=== PATIENT | male | born 1945 | race Caucasian/White ===

== ENCOUNTER 2017-10-06 09:57 | Inpatient (IN) | payer OTHER, BC ==
[~2017-10-06] VITALS: Ht 185.4 cm; Wt 91.6 kg
--- NOTE | ~2017-10-06 | 2DMMODE ---
[facility] [place] [address] 2 D/M-MODE ECHOCARDIOGRAM Name: ZBIGNIEW COREA Room #: 462-P ADM IN .R.#: [id number] Admission: 10/06/17 Attend Phys: Lizbeth Burrell Discharge: Date of : 41 Date of Service: 10/06/17 1611 Report #: [id number] THIS REPORT FOR: //name// APPROVED REPORT Study performed: 10/06/2017 12:57:03 EXAM: Comprehensive 2D, Doppler, and color-flow Echocardiogram Patient Location: ER Room #: 2 Status: routine BSA: 2.15 HR: 77 bpm BP: 135/81 mmHg Other Information Study Quality: Adequate Indications CVA/TIA Echo Enhancing Agent Indication: Rule out Shunt Agent(s) / Amount(s) Used: Agitated Saline 7 cc 2D Dimensions IVC: 22.00 mm Volumes Left Atrial Volume (Systole) Single Plane 4CH: 36.94 mL Single Plane 2CH: 43.96 mL LA ESV Index: 21.00 mL/m2 Aortic Valve AoV Peak Drew.: 1.45 m/s AO Peak Gr.: 8.37 mmHg LVOT Max P.37 mmHg LVOT Max V: 0.92 m/s AI Vmax: 3.72 m/s AI [place]: 2.33 m/s2 AI PHT: 461.78 ms Mitral Valve E/A Ratio: 0.7 MV Decel. Time: 317.63 ms MV E Max Drew.: 0.85 m/s [facility] [address] [place] [address] 2 D/M-MODE ECHOCARDIOGRAM Name: ZBIGNIEW COREA JR Room #: 462-P [facility]#: [id number] Admission: 10/06/17 Attend Phys: Lizbeth Burrell Discharge: Date of : 41 Date of Service: 10/06/17 1611 Report #: [id number] A Drew.: 1.27 m/s MV PHT: 92.11 ms IVRT: 119.95 ms Pulmonary Valve PV Peak Drew.: 0.84 m/s PV Peak Gr.: 2.83 mmHg Pulmonary Vein P Vein S: 0.47 m/s P Vein A: 0.30 m/s P Vein D: 0.36 m/s P Vein A Dur.: 92.3 msec P Vein S/D Ratio: 1.31 Left Ventricle The left ventricle is normal size. There is normal left ventricular wall thickness. The left ventricular systolic function is normal. The left ventricular ejection fraction is within the normal range. LVEF is 60-65%. Grade I - abnormal relaxation pattern. Right Ventricle The right ventricle is normal size. The right ventricular systolic function is normal. Atria The left atrium size is normal. Interatrial septum is intact without evidence of ASD or PFO. The right atrium size is normal. Aortic Valve The aortic valve is normal in structure. Aortic valve is calcified. Trace to mild aortic regurgitation. There is no aortic valvular stenosis. Mitral Valve The mitral valve is normal in structure. There is no mitral valve regurgitation noted. No evidence of mitral valve stenosis. Tricuspid Valve The tricuspid valve is normal in structure. There is no tricuspid valve regurgitation noted. Pulmonic Valve The pulmonary valve is normal in structure. There is no pulmonic valvular regurgitation. Great Vessels The aortic root is normal in size. IVC is dilated and collapses <50% with inspiration. [facility] [address] [place] [address] 2 D/M-MODE ECHOCARDIOGRAM Name: ZBIGNIEW COREA Room #: 462-P [facility] IN M.R.#: [id number] Admission: 10/06/17 Attend Phys: Lizbeth Burrell Discharge: Date of : 41 Date of Service: 10/06/17 1611 Report #: [id number] Pericardium There is no pericardial effusion. <Conclusion> The left ventricle is normal size. LVEF is 60-65%. The left atrium size is normal. The right atrium size is normal. The aortic valve is normal in structure. Aortic valve is calcified. Trace to mild aortic regurgitation. The mitral valve is normal in structure. The tricuspid valve is normal in structure. The pulmonary valve is normal in structure. There is no pericardial effusion. <ELECTRONICALLY SIGNED> By: Bronson Sanchez MD 10/06/17 161 10 10 Bronson Sanchez MD /INF
--- NOTE | ~2017-10-06 | EKG ---
[place] [address] [facility] [place] [address] ELECTROCARDIOGRAM REPORT Name: ZBIGNIEW COREA JR Room #: 462-P ADM IN M.R.#: [id number] Admission: 10/06/17 Attend Phys: Lizbeth Lopez Discharge: Date of : 41 Report #: [id number] THIS REPORT FOR: //name// [facility] ED Test Date: 2017-10-06 Test Time: 10:27:49 Pat Name: ZBIGNIEW COREA Department: Room: [facility] Gender: M Process Manager: jeremy : 1945 Requested By: Vanita Puga Order Number: [id number] MD: Les Boss Measurements Intervals [place] Rate: 89 P: 10 WI: 171 QRS: -52 QRSD: 89 T: 88 QT: 401 QTc: 488 Interpretive Statements Sinus rhythm Frequent premature ventricular and occasional supraventricular complexes Inferior infarct, old Anterior infarct, old Nonspecific T wave abnormality No previous ECG available for comparison Electronically Signed On 10-07-2017 8:43:10 CDT by Les Boss [email or web address] <ELECTRONICALLY SIGNED> By: Les Boss MD, [facility] 10/07/17 0843 1027 [facility]7 Les Boss MD, [facility] /EPI
[2017-10-06 10:36] LABS: ABSOLUTE NEUTROPHILS 3.9 thou/uL (1.4-8.2); EOSINOPHILS 0.3 % (0.0-3.0); HEMATOCRIT 41.3 % (42.0-52.0); HEMOGLOBIN 14.1 gm/dL (14.0-18.0); LYMPHOCYTES 19.7 % (24.0-44.0); MCHC 34.2 g/dL (28.0-37.0); MCV 84.9 fL (80.0-100.0); PLATELET COUNT 150 thou/uL (150-400); RBC 4.86 mil/uL (4.50-6.00); RDW 15.1 % (10.5-14.5); WBC 5.4 thou/uL (4.0-11.0)
[2017-10-06] MEDS ORDERED: CYMBALTA20 MG PO (10:37)
[2017-10-06] MEDS ORDERED: LISINOPRIL20 MG PO (10:37)
[2017-10-06] MEDS ORDERED: PROSCAR 5MG TABL5 MG PO (10:37)
[2017-10-06] MEDS ORDERED: FLOMAX0.4 MG PO (10:38)
[2017-10-06] MEDS ORDERED: PROTONIX40 M1 PO (10:39)
[2017-10-06] MEDS ORDERED: ZINC-220220 MG PO (10:39)
[2017-10-06] MEDS ORDERED: NEURONTIN100 MG PO (10:40)
[2017-10-06] MEDS ORDERED: TYLENOL325 MG PO (10:41)
[2017-10-06] MEDS ORDERED: FLEXERIL PO (10:41)
[2017-10-06] MEDS ORDERED: VITAMINC500 PO (10:41)
[2017-10-06] MEDS ORDERED: VITAMIN D1000 UNI1 PO (10:42)
[2017-10-06] MEDS ORDERED: DOXYCYCLINE 10100 MG PO (10:43)
[2017-10-06 10:44] LABS: ANION GAP 10 mmol/L (7-16); BUN 20 mg/dL (7-18); CALCIUM 8.9 mg/dL (8.5-10.1); CHLORIDE 107 mmol/L (98-107); CO2 25 mmol/L (21-32); CREATININE 1.5 mg/dL (0.7-1.3); GLUCOSE 128 mg/dL (74-106); SODIUM 142 mmol/L (136-145)
[2017-10-06 10:47] LABS: APTT 23.9 Seconds (24.5-32.8); INR 1.1; PROTIME 10.9 Seconds (9.3-11.4)
[2017-10-06] MEDS ORDERED: [UNRECOGNIZED DRUG - OTHER] PO (10:47)
[2017-10-06 10:54] LABS: TROPONIN-I < 0.04 ng/mL (<0.06)
[2017-10-06 11:00] LABS: URINE BILIRUBIN NEGATIVE (Negative); URINE BLOOD TRACE (Negative); URINE CLARITY CLEAR; URINE COLOR YELLOW; URINE GLUCOSE-RANDOM* NEGATIVE (Negative); URINE KETONES NEGATIVE (Negative); URINE LEUKOCYTES-REFLEX NEGATIVE (Negative); URINE NITRITE-REFLEX NEGATIVE (Negative); URINE PROTEIN (DIPSTICK) 1+ (Negative); URINE SPECIFIC GRAVITY >= 1.030 (1.005-1.035); URINE UROBILINOGEN 0.2 E.U./dl (0.2-1.0)
[2017-10-06 11:08] LABS: BACTERIA-REFLEX 1-9 Few /HPF (None Seen); CASTS None Seen /LPF (None Seen); CRYSTALS None Seen /LPF (None Seen); SQUAMOUS None Seen /LPF (0-3); URINE RBC None Seen /HPF (0-2); URINE WBC-REFLEX 0-5 Rare /HPF (0-5)
[2017-10-06 12:07] LABS: CHOLESTEROL 154 mg/dL (<200); HDL CHOLESTEROL 28 mg/dL (>40); LDL CHOLESTEROL 99 mg/dL (<100); TC:HDL 5.5 Ratio (Not establshd); TRIGLYCERIDE 138 mg/dL (<150); VLDL 28 mg/dL (<40)
[2017-10-06 12:33] LABS: TSH 1.655 uIU/mL (0.358-3.740)
[2017-10-06 13:09] VITALS: BP 135/81
[2017-10-06 14:18] VITALS: BP 127/72
[2017-10-06 14:37] VITALS: BP 136/76
[2017-10-06 20:00] VITALS: BP 148/71
[2017-10-06] MEDS ORDERED: [UNRECOGNIZED DRUG - OTHER] PO (22:05)
[2017-10-07 04:00] VITALS: BP 136/83
[2017-10-07 08:46] VITALS: BP 149/62
[2017-10-07 09:59] LABS: BE(vivo) -0.5 mmol/L (-2 to +3); PCO2 34.3 mmHg (35.0-45.0); PO2 72.3 mmHg (80.0-100.0); pH 7.444 (7.360-7.450); sO2 95.2 % (92.0-98.0)
[2017-10-07 16:42] VITALS: BP 138/64
[2017-10-07 19:11] VITALS: BP 136/53
[2017-10-08 08:20] VITALS: BP 143/64
[2017-10-08 14:29] VITALS: BP 143/64
[2017-10-08] MEDS ORDERED: ASPIRIN325 PO (15:58)
[2017-10-08 17:31] VITALS: BP 143/64
== END 2017-10-08 18:15 | DRG 70 ==
LOC: ER 09:57 → EROBS 11:35 → 4W 11:35 → SICU 10-07 21:02
PROVIDERS: Emergency Medicine; Hospitalist; Nurse Practitioner
DX: G93.40 Encephalopathy, unspecified (principal); E43 Unspecified severe protein-calorie malnutrition; G35 Multiple sclerosis; I10 Essential (primary) hypertension; F32.9 Major depressive disorder, single episode, unspecified; K21.9 Gastro-esophageal reflux disease without esophagitis; G47.9 Sleep disorder, unspecified; N40.0 Benign prostatic hyperplasia without lower urinary tract symptoms; Z88.8 Allergy status to other drugs, medicaments and biological substances; Z90.49 Acquired absence of other specified parts of digestive tract; Z82.49 Family history of ischemic heart disease and other diseases of the circulatory system; Z79.899 Other long term (current) drug therapy; Z79.82 Long term (current) use of aspirin; Z86.73 Personal history of transient ischemic attack (TIA), and cerebral infarction without residual deficits
CPT/HCPCS: 10045; 15002

== ENCOUNTER 2017-10-08 14:58 | Inpatient (IN) | payer OTHER, BC ==
[~2017-10-08] VITALS: Ht 185.4 cm; Wt 100.7 kg
--- NOTE | ~2017-10-08 | PLAN ---
[facility] [place] [address] REHAB UNIT PLAN OF CARE Name: ZBIGNIEW COREA Room #: 503-P ADM IN M.R.#: [id number] Admission: 10/08/17 Attend Phys: Lalo Reed MD Discharge: Date of : 41 Report #: [id number] THIS REPORT FOR: //name// CC: Lalo Shanks DATE OF SERVICE: 10/09/2017 PROGRESS NOTE/OVERALL PLAN OF CARE The overall plan of care is based on the preadmission screen, post-admission physician evaluation, and information garnered from therapy assessments. 1. Estimated length of stay is probably fairly long, likely at least 2-3 weeks. 2. Medical prognosis is reasonably good. 3. Anticipated interventions includes the interdisciplinary acute inpatient rehabilitation program. PT/OT and Speech will be involved as well as rehabilitation nursing assisting regarding medication management, skin care prophylaxis, bowel and bladder issues and nursing education. We will have the multidisciplinary rehabilitation team involved as well as consulting physicians. 4. Anticipated functional outcomes would be for the patient to hopefully improve with basic mobility and ADLs and cognition. The focus will be to try to work on sliding board transfers to try to achieve the prior functional level. He was at premorbidly, so he can return back home with his . He was at a wheelchair level premorbidly with his multiple sclerosis. 5. Discharge destination is back home with his . 6. Expected therapy by discipline includes PT/OT and speech 1 hour per day each 5 days a week throughout the duration of the acute inpatient rehabilitation stay. <ELECTRONICALLY SIGNED> By: Lalo Reed MD 10/18/17 1221 0739 0753 Lalo Reed MD /nt
--- NOTE | ~2017-10-08 | H ---
[facility] [place] [address] HISTORY AND PHYSICAL Name: ZBIGNIEW COREA JR Room #: 503-P ADM IN M.R.#: [id number] Admission: 10/08/17 Attend Phys: Lalo Reed MD Discharge: Date of : 41 Report #: [id number] THIS REPORT FOR: //name// CC: Lalo Shanks DATE OF SERVICE: 10/08/2017 HISTORY OF PRESENT ILLNESS: This is a 72-year-old gentleman brought in to [facility] by his after she checked on him at morning and found him unable to be aroused. He was diaphoretic and extremely weak. She brought him into the hospital for further evaluation. He has past pertinent medical history of MS with premorbid wheelchair bound status, subdural hematoma, status post patricia hole in 2016 with residual left-sided weakness, hypertension and chronic suprapubic catheter with a recent UTI, treated with doxycycline. She was concerned about a new stroke. He was seen in consultation by Neurology. His stroke workup was negative. CT of the head showed no acute process. MRI of the head shows chronic changes, particularly in the right frontal lobe, but no acute abnormality. He also underwent carotid ultrasound, echocardiogram and lab work, which was essentially all within normal limits. His O2 sat had been low 90% on room air. He did have a nocturnal desaturation study and is felt to have an underlying sleep disorder. Neurology has recommended outpatient sleep study for further evaluation. He medically stabilized, but continued to remain weak and has been transferred to inpatient rehab today. PAST MEDICAL HISTORY: MS, BPH, GERD, chronic suprapubic catheter, history of UTIs, hypertension, subdural hematoma, status post patricia hole. PAST SURGICAL HISTORY: Appendectomy, tonsillectomy, patricia hole, back surgery x 2, suprapubic catheterization. HABITS: He is a nonsmoker, nondrinker. CODE STATUS: Full code. SOCIAL HISTORY: He lives in a house with his . It is 1-06/15 stories. He has a ramp entrance from the garage with zero steps inside, he was wheelchair bound and nonambulatory premorbidly. He used a slide board for transfers and has a rolling shower chair with seatbelt for which he uses once a week for bathing. REVIEW OF SYSTEMS: He reports chronic suprapubic catheter with no current issues. He reports generalized muscle weakness greater in his lower extremities. He denies numbness, tingling, dizziness, headache, cough, chest pain, shortness of breath or edema. [address] [address] HISTORY AND PHYSICAL Name: KHOIMAGDALENOZBIGNIEW MARCIAL Room #: 503-P [facility] IN ..#: [id number] Admission: 10/08/17 Attend Phys: Lalo Reed MD Discharge: Date of : 41 Report #: [id number] PHYSICAL EXAMINATION: VITAL SIGNS: Blood pressure 143/64, respirations 21, pulse 78, temperature 98.2. GENERAL: He is awake, alert and oriented x 3. He has slow verbal responses. HEART: Regular rate and rhythm, S1, S2. CHEST: Lungs clear to auscultation bilateral. No crackle, no wheeze. ABDOMEN: Soft, bowel sounds positive. He has suprapubic drain. GENITOURINARY: Jordan catheter plaque with clear yellow urine output. EXTREMITIES: Bilateral lower extremities, limited range of motion, unable to lift legs antigravity. Left leg weaker greater than right. Bilateral upper extremity functional range of motion intact. Bilateral upper extremity strength 3+/5. He is max assist to slide legs over edge of bed, unable to perform sit to stand. No calf swelling or tenderness. NEUROLOGIC: Sensation intact to light touch bilateral, slow motor movements. He has moderate to severe memory impairment. ASSESSMENT AND PLAN: 1. Encephalopathy. 2. Probable sleep disorder. We will need outpatient sleep study. 3. Multiple sclerosis and premorbid wheelchair bound. 4. History of subdural hematoma, status post patricia hole 2016 with residual left-sided weakness. 5. Chronic suprapubic catheter. 6. Hypertension. PLAN: The patient has been admitted to inpatient rehabilitation unit. He will have physical, occupational and speech therapies with his goal to return back to home with his . We will continue to make rehab recommendations as needed. <ELECTRONICALLY SIGNED> By: ISREAL Sharp 10/22/17 1012 1628 172 ISREAL Sharp /nt
--- NOTE | ~2017-10-08 | HC ---
[facility] [place] [address] CONSULTATION Name: ZBIGNIEW COREA JR Room #: 503-P ADM IN M.R.#: [id number] Admission: 10/08/17 Attend Phys: Lalo Reed MD Discharge: Date of : 41 Report #: [id number] THIS REPORT FOR: //name// CC: Lalo Shanks DATE OF SERVICE: 10/09/2017 NEUROBEHAVIORAL STATUS EXAM: ATTENDING PHYSICIAN: Lalo Reed MD. FIBERGLASS BONDING MACHINE TENDER: Jimi Joyner, PhD. CLINICAL PRESENTATION: The patient is a 72-year-old male admitted to [facility] rehabilitation unit for a comprehensive inpatient rehabilitation program to improve functional mobility, activities of daily living and self-care and mental status secondary to deficits from an encephalopathy. The patient was admitted to the hospital with confusion and disorientation. He was difficult to awaken and his brought him in through the Emergency Room. He has a history of multiple sclerosis and is wheelchair bound. His reported that he had an intracerebral bleed in 2017. 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 Additionally, he has chronic suprapubic catheter and hypertension. A complete description of his medical condition and history can be found in his medical record. Neuropsychological consultation was requested to provide assistance in the assessment of cognitive and emotional status and to provide recommendations and services. Prior to this most recent admission, he was living with his in their home. The patient has been in a previous usp units including [facility]. His has attempted to take care of him at home. 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 The patient is a college graduate. He is reported to have been driving independently up until his cerebral hemorrhage in 2017. For the last year, she has been assisting in the management of his care. He has 2 children. There is no history of treatment for depression/anxiety or concern regarding substance use. TECHNIQUES UTILIZED: Clinical interview, review of medical records, staff consultation and behavioral observation, mini mental status exam 2 standard version, verbal fluency assessment, letter and category and clock drawing. EXAMINATION FINDINGS: The patient was alert and cooperative with the assessment. He had difficulty in describing the reason for his hospitalization. The patient was disoriented as he described recent historical events. He is unable to accurately describe his current medical condition and the reason for [facility] [address] [place] [address] CONSULTATION Name: NAHOMYZBIGNIEW Hemant Room #: 503-P [facility] IN ..#: [id number] Admission: 10/08/17 Attend Phys: Lalo Reed MD Discharge: Date of : 41 Report #: [id number] hospitalization. There is no evidence of aphasia. He does not report auditory or visual hallucinations. His performance on the MMSE 2 brief version is extremely low with a raw score of 8 of 16. He was 3/3 for initial registration, 3/5 for orientation to time, 2 of [address] and 0/3 for immediate recall of 3 items after a brief time delay and distraction. Performance on the MMSE 2 standard version was extremely low with a raw score 16 of 30. He was 1 of 5 for serial sevens, 2 of 2 for naming, 1 of 1 for repetition. Auditory comprehension was 3 of 3. He could read and follow a single command. The patient was unable to write a sentence or copy a simple geometric design. The patient was unable to accurately draw a clock, place the numbers in the clock or set the hands at a designated time. Clock drawing also revealed perseveration in copying. Perseveration is often seen in executive dysfunction that is associated with neurodegenerative disorder. Letter fluency was extremely low with a raw score of 7 Category fluency was extremely low with raw score of 4. The patient is presenting with severe deficits in cognition. While he is alert, severe deficits are suggested in immediate recall, sustained concentration, visual spatial organization and executive functioning. As indicated evidence of perseveration and poor insight are noted. DIAGNOSTIC IMPRESSION: Major neurocognitive disorder (dementia), possibly due to multiple sclerosis and cerebrovascular accident, without behavior disorder -- severe at this time. RECOMMENDATIONS: The patient will require continued 24-hour care that includes assistance in the management of medication, nutrition and finances. Specific directions and instructions in regard to daily activity will be necessary to maintain safety. He may benefit from a followup assessment to clarify cognitive status upon resolution of his acute medical condition. The patient is lacking insight into his deficits which places him at an increased safety risk. Continued orientation to time and place along with identifying specific objectives during therapy will assist his overall achievement of goals. [address] [address] CONSULTATION Name: ZBIGNIEW COREA JR Room #: 503-P [facility] IN ..#: [id number] Admission: 10/08/17 Attend Phys: Lalo Reed MD Discharge: Date of : 41 Report #: [id number] Thank you very much for allowing me to provide the consultation on this patient. <ELECTRONICALLY SIGNED> By: Jimi Joyner, PhD 10/10/17 1408 1358 0136 Jimi Joyner, PhD /nt
--- NOTE | ~2017-10-08 | H ---
[facility] [place] [address] HISTORY AND PHYSICAL Name: ZBIGNIEW COREA Room #: 503-P ADM IN M.R.#: [id number] Admission: 10/08/17 Attend Phys: Lalo Reed MD Discharge: Date of : 41 Report #: [id number] THIS REPORT FOR: //name// CC: Lalo Shanks DATE OF SERVICE: 10/08/2017 HISTORY AND PHYSICAL ADDENDUM AND POST-ADMISSION PHYSICIAN EVALUATION HISTORY OF PRESENT ILLNESS: The patient is a 72-year-old white male originally admitted to [facility], 10/06/2017 with history of multiple sclerosis, wheelchair bound, prior subdural hematoma status post patricia hole 1 year ago at [facility] with left-sided weakness, hypertension and chronic suprapubic catheter, recent urinary tract infection, was admitted with mental status change, concern of possible stroke. He was seen by Neurology. MRI showed chronic changes particularly right frontal lobe. CT of the head showed no acute process. He was noted to have an encephalopathy along with his multiple sclerosis and prior history of a subdural hematoma. He had a significant functional decline from his premorbid status and has now been admitted for acute in-hospital inpatient rehabilitation. PHYSICAL EXAMINATION: GENERAL: The patient was seen earlier. He does have a suprapubic catheter. He will arouse, follow basic commands. He has somewhat slow verbal responses. EXTREMITIES: Bilateral upper extremity strength is grade 3+/5. Lower extremity strength appears weaker on the left. He is needing assistance with basic transfers currently at a max assist with sliding board. ASSESSMENT AND PLAN: See the consult dictation as per nurse practitioner, Sarah Beth George. I agree with her assessment and physical examination as noted. From a postadmission physician evaluation perspective, there are no relevant changes since the preadmission screening. Please see the review of prior and current medical and functional condition and comorbidity. Please see the patient's previous and current functional status. As far as risk of complications, the patient has the above noted multiple medical comorbidities. Initial plan of care involves the interdisciplinary acute inpatient rehabilitation program with the goal of maximizing the patient's functional independence, so that he can hopefully return back to his prior living situation. Measurable functional goals would be to focus primarily on transfers including use of the sliding board to try to enable independence with sliding board transfers and functional independence to try to return back to his premorbid level. Prognosis is reasonably good with estimated length of stay [facility] [address] [place] [address] HISTORY AND PHYSICAL Name: ZBIGNIEW COREA Room #: 503-P ADM IN [facility]#: [id number] Admission: 10/08/17 Attend Phys: Lalo Reed MD Discharge: Date of : 41 Report #: [id number] probably at least 2-3 weeks pending progress. Potential barriers would include his multiple medical comorbidities and decreased functional status. <ELECTRONICALLY SIGNED> By: Lalo Reed MD 10/18/17 1221 0734 0813 Lalo Reed MD /FRANK
[~2017-10-08 14:58] MED LIST: CYMBALTA20 MG PO; DOXYCYCLINE 10100 MG PO; FLEXERIL PO; FLOMAX0.4 MG PO; LISINOPRIL20 MG PO; NEURONTIN100 MG PO; PROSCAR 5MG TABL5 MG PO; PROTONIX40 M1 PO; TYLENOL325 MG PO; VITAMIN D1000 UNI1 PO; VITAMINC500 PO; ZINC-220220 MG PO; [UNRECOGNIZED DRUG - OTHER] PO; [UNRECOGNIZED DRUG - OTHER] PO
[2017-10-08] MEDS ORDERED: ASPIRIN325 PO (15:58)
[2017-10-08 18:53] VITALS: BP 135/52
[2017-10-09 07:26] VITALS: BP 126/64
[2017-10-09 19:20] VITALS: BP 141/57
[2017-10-10 10:26] VITALS: BP 120/64
[2017-10-10 20:00] VITALS: BP 134/59
[2017-10-11 07:51] VITALS: BP 132/81
[2017-10-11 19:20] VITALS: BP 117/43
[2017-10-12 04:20] LABS: ABSOLUTE NEUTROPHILS 4.9 thou/uL (1.4-8.2); BASOPHILS 0.8 % (0.0-2.0); EOSINOPHILS 0.3 % (0.0-3.0); HEMATOCRIT 41.9 % (42.0-52.0); HEMOGLOBIN 14.1 gm/dL (14.0-18.0); LYMPHOCYTES 20.1 % (24.0-44.0); MCH 28.8 pg (26.0-34.0); MCHC 33.6 g/dL (28.0-37.0); MCV 85.6 fL (80.0-100.0); MONOCYTES 9.5 % (1.0-8.0); PLATELET COUNT 157 thou/uL (150-400); POLYS 69.3 % (36.0-66.0); RDW 15.2 % (10.5-14.5)
[2017-10-12 04:29] LABS: CALCIUM 8.7 mg/dL (8.5-10.1); CREATININE 1.2 mg/dL (0.7-1.3); POTASSIUM 3.8 mmol/L (3.5-5.1)
[2017-10-12 08:15] VITALS: BP 102/64
[2017-10-12 19:08] VITALS: BP 144/71
[2017-10-13 08:17] VITALS: BP 119/54
[2017-10-13 15:20] LABS: URINE BILIRUBIN NEGATIVE (Negative); URINE BLOOD TRACE (Negative); URINE CLARITY CLEAR; URINE COLOR YELLOW; URINE GLUCOSE-RANDOM* NEGATIVE (Negative); URINE KETONES NEGATIVE (Negative); URINE NITRITE-REFLEX NEGATIVE (Negative); URINE PROTEIN (DIPSTICK) TRACE (Negative); URINE SPECIFIC GRAVITY 1.025 (1.005-1.035); URINE UROBILINOGEN 0.2 E.U./dl (0.2-1.0)
[2017-10-13 15:23] LABS: URINE LEUKOCYTES-REFLEX 2+ (Negative)
[2017-10-13 15:34] LABS: CASTS None Seen /LPF (None Seen); CRYSTALS None Seen /LPF (None Seen); SQUAMOUS 0-3 Few /LPF (0-3); URINE RBC 0-2 Rare /HPF (0-2); URINE WBC-REFLEX >25 Many /HPF (0-5)
[2017-10-13 19:20] VITALS: BP 133/73
[2017-10-14 09:00] VITALS: BP 119/60
[2017-10-14 20:27] VITALS: BP 139/61
[2017-10-15 10:32] VITALS: BP 130/68
[2017-10-15 20:09] VITALS: BP 135/49
[2017-10-16 07:15] VITALS: BP 134/76
[2017-10-16 19:30] VITALS: BP 118/72
[2017-10-17 08:58] VITALS: BP 133/63
[2017-10-17 19:07] VITALS: BP 136/65
[2017-10-18 04:19] LABS: ABSOLUTE NEUTROPHILS 4.1 thou/uL (1.4-8.2); BASOPHILS 1.1 % (0.0-2.0); EOSINOPHILS 0.4 % (0.0-3.0); HEMATOCRIT 43.3 % (42.0-52.0); HEMOGLOBIN 14.7 gm/dL (14.0-18.0); LYMPHOCYTES 22.1 % (24.0-44.0); MCH 29.2 pg (26.0-34.0); MCV 85.9 fL (80.0-100.0); PLATELET COUNT 153 thou/uL (150-400); POLYS 65.4 % (36.0-66.0); RBC 5.04 mil/uL (4.50-6.00); WBC 6.2 thou/uL (4.0-11.0)
[2017-10-18 04:29] LABS: CALCIUM 8.9 mg/dL (8.5-10.1); CREATININE 1.2 mg/dL (0.7-1.3)
[2017-10-18 07:15] VITALS: BP 125/63
[2017-10-18 18:57] VITALS: BP 130/58
[2017-10-19 07:15] VITALS: BP 126/69
[2017-10-19 14:34] VITALS: BP 126/69
[2017-10-19 19:02] VITALS: BP 114/56
[2017-10-20 03:58] VITALS: BP 127/57
[2017-10-20 08:20] VITALS: BP 120/59
[2017-10-20 19:00] VITALS: BP 118/67
[2017-10-21 05:09] LABS: ABSOLUTE NEUTROPHILS 3.5 thou/uL (1.4-8.2); EOSINOPHILS 0.4 % (0.0-3.0); HEMOGLOBIN 14.2 gm/dL (14.0-18.0); LYMPHOCYTES 23.8 % (24.0-44.0); MCHC 33.8 g/dL (28.0-37.0); MCV 85.7 fL (80.0-100.0); MONOCYTES 10.8 % (1.0-8.0); PLATELET COUNT 171 thou/uL (150-400); RDW 15.1 % (10.5-14.5); WBC 5.5 thou/uL (4.0-11.0)
[2017-10-21 05:25] LABS: CALCIUM 8.8 mg/dL (8.5-10.1); CREATININE 1.3 mg/dL (0.7-1.3); MAGNESIUM 2.1 mg/dL (1.8-2.4)
[2017-10-21 07:46] VITALS: BP 104/47
[2017-10-21] MEDS ORDERED: B-12500 MCG PO (09:48)
[2017-10-21] MEDS ORDERED: NEURONTIN 300300 M1 PO (09:48)
[2017-10-21] MEDS ORDERED: VISINE-A EYE DR15 ML OPHTHALMIC (09:48)
[2017-10-21] MEDS ORDERED: LISINOPRIL10 MG PO (09:48)
[2017-10-21 19:57] VITALS: BP 139/69
[2017-10-22 08:00] VITALS: BP 143/71
[2017-10-22 08:33] VITALS: BP 126/69
[2017-10-22 12:10] VITALS: BP 126/69
== END 2017-10-22 18:04 | disposition home health service (06) | DRG 71 ==
PROVIDERS: Nurse Practitioner
DX: G93.40 Encephalopathy, unspecified (principal); N39.0 Urinary tract infection, site not specified; I10 Essential (primary) hypertension; N40.0 Benign prostatic hyperplasia without lower urinary tract symptoms; K21.9 Gastro-esophageal reflux disease without esophagitis; G35 Multiple sclerosis; F01.50 Vascular dementia, unspecified severity, without behavioral disturbance, psychotic disturbance, mood disturbance, and anxiety; E53.8 Deficiency of other specified B group vitamins; F32.9 Major depressive disorder, single episode, unspecified; G47.9 Sleep disorder, unspecified; Z99.3 Dependence on wheelchair; Z87.440 Personal history of urinary (tract) infections; Z90.49 Acquired absence of other specified parts of digestive tract; G81.94 Hemiplegia, unspecified affecting left nondominant side; G47.00 Insomnia, unspecified; Z88.8 Allergy status to other drugs, medicaments and biological substances
CPT/HCPCS: 10112

== ENCOUNTER 2019-02-27 11:06 | Inpatient (IN) | payer OTHER, BC ==
[~2019-02-27] VITALS: Ht 185.4 cm; Wt 101.2 kg
--- NOTE | ~2019-02-27 | EMS ---
[address] [address] EMS Patient Care Report Name: ZBIGNIEW COREA JR Room #: 350-P [facility] IN .R.#: [id number] Admission: 02/27/19 Attend Phys: Aviva Dawn MD Discharge: 03/03/19 Date of : 41 Report #: [id number] THIS REPORT FOR: //name// Report Transmitted: 03/08/2019 13:35 EMS Care Summary [facility] MED-ACT Incident [id number] @ 02/27/2019 10:27 Incident Location [address] [place] [address] Patient ZBIGNIEW COREA Male, 73 Years 1945 Patient Address [address] [place] [address] Patient History Hypertension,Stroke/CVA, Patient Allergies Other drug allergy, Patient Medications Lisinopril, Duloxetine, Chief Complaint "He stopped responding to me" Disposition Transported No Lights/[place] Dispatch Reason Stroke/CVA Transported To [facility] Narrative upon our arrival located pt lying supine in nearby bedroom of private residence with FD, PD and his spouse at his side. pt's spouse explained she was conducting physical therapy with him when she noticed him "shaking" with a change in mentation per her account. pt's spouse reported the pt is typically [address] [address] EMS Patient Care Report Name: ZBIGNIEW COREA JR Room #: 350-P [facility]#: [id number] Admission: 02/27/19 Attend Phys: Aviva Dawn MD Discharge: 03/03/19 Date of : 41 Report #: [id number] alert with a described GCS of 15. pt reported to have a history of CVA without unilateral deficits described by the pt's spouse. pt's spouse confirmed the "shaking" was in his upper extremities only and lasted "less than 30 seconds." pt's spouse stated, "He stopped responding to me" which prompted her to summon 911. pt did not track EMS entrance and was found lying supine in bed with FD at his side. pt found with a NRB in place with a reported rA SPO2 of 90% per [place] [facility]. pt additionally noted to have a urinary catheter in place with an adult brief and signs of incontinence. v/s obtained. stroke screen conducted and found to be inconclusive. 12 Lead EKG applied and blood glucose measured. pt noted to have snoring respirations, easily corrected by alignment of his airway. pt sheet lifted to EMS cot where he was secured in a POC with appropriate seatbelts applied. EMS confirmed with pt's spouse that pt had not recently sustained any trauma, specifically a fall. pt's spouse re-confirmed his last known well of 10:15 with an acute change of mental status after his episode of "shaking" during their physical therapy. venous access obtained in EMS unit. report called to ED without incident. upon arrival report given to ED RN without incident. pt sheet lifted to ED bed 8 with rails upx2 and staff at his side. Appended: correct destination amended on 03/08/2019 to reflect correct transport destination of . Initial Vitals @10:55P: 98,R: 10,BP: 75/52,GCS: 6,SpO2: 98,Revised Trauma: 8, @10:50P: 97,R: 10,BP: 121/86,GCS: 6,SpO2: 97,Revised Trauma: 10, @10:45P: 89,R: 10,BP: 67/45,GCS: 6,SpO2: 96,Revised Trauma: 8, @11:02P: 90,R: 10,BP: 100/61,GCS: 6,SpO2: 98,Revised Trauma: 10, @10:44P: 85,R: 10,BP: 67/45,GCS: 6,Glucose: 94,SpO2: 98,Revised Trauma: 8, @11:04P: 98,R: 10,BP: 103/56,GCS: 6,SpO2: 98,Revised Trauma: 10, @10:57P: 102,R: 10,BP: 100/60,GCS: 6,SpO2: 96,Revised Trauma: 10, Assessments @10:44MENTAL:Unresponsive,SKIN:Diaphoresis,Pale,HEENT:Eyes: Right Pupil: 3-mm,Eyes: Left Pupil: 3-mm,LUNG SOUNDS:ABDOMEN:PELVIS//GI:Incontinence,EXTREMITIES:PULSE:NEURO: Impression Altered Mental Status Procedures @10:4412-Lead ECGResponse: UnchangedSucceeded@10:49Saline Lock 500cc (18 ga) Site: Hand-RightResponse: UnchangedSucceeded@11:00Saline Lock 10cc (20 ga) Site: Hand-LeftResponse: UnchangedSucceeded Timeline 10:27,Call Received 10:27,Psap Call [facility] [address] [place] [address] EMS Patient Care Report Name: ZBIGNIEW COREA JR Room #: 350-P [facility] IN ..#: [id number] Admission: 02/27/19 Attend Phys: Aviva Dawn MD Discharge: 03/03/19 Date of : 41 Report #: [id number] 10:27,Dispatched 10:29,En Route 10:38,On Scene 10:40,At Patient 10:44,12-Lead ECG,Response: UnchangedSucceeded, 10:44,BP: 67/45 M,PULSE: 85,RR: 10 R,SPO2: 98 Ox,ETCO2: ,B,PAIN: ,GCS: 6, 10:45,BP: 67/45 M,PULSE: 89,RR: 10 R,SPO2: 96 Ox,ETCO2: ,BG: ,PAIN: ,GCS: 6, 10:49,Saline Lock 500cc 18 ga Site: Hand-Right,Response: UnchangedSucceeded, 10:50,BP: 121/86 M,PULSE: 97,RR: 10 R,SPO2: 97 Ox,ETCO2: ,BG: ,PAIN: ,GCS: 6, 10:50,Depart Scene 10:55,BP: 75/52 M,PULSE: 98,RR: 10 R,SPO2: 98 Ox,ETCO2: ,BG: ,PAIN: ,GCS: 6, 10:57,BP: 100/60 M,PULSE: 102,RR: 10 R,SPO2: 96 Ox,ETCO2: ,BG: ,PAIN: ,GCS: 6, 11:00,Saline Lock 10cc 20 ga Site: Hand-Left,Response: UnchangedSucceeded, 11:02,BP: 100/61 M,PULSE: 90,RR: 10 R,SPO2: 98 Ox,ETCO2: ,BG: ,PAIN: ,GCS: 6, 11:04,BP: 103/56 M,PULSE: 98,RR: 10 R,SPO2: 98 Ox,ETCO2: ,BG: ,PAIN: ,GCS: 6, 11:08,At Destination 11:29,Call Closed Disclaimer v1.1 Copyright 2019 [employer] This EMS Care Summary contains data elements from the applicable legal record (which may be displayed differently). It is designed to provide pertinent information for the following purposes: continuity of care, clinical quality, and state data reporting. The complete legal record is available to ED staff and administrators of the receiving hospital in [employer]'s Patient Tracker. All data is provided "as is."
--- NOTE | ~2019-02-27 | EMS ---
[address] [address] EMS Patient Care Report Name: ZBIGNIEW COREA JR Room #: 350-P [facility] IN .R.#: [id number] Admission: 02/27/19 Attend Phys: Aviva Dawn MD Discharge: 03/03/19 Date of : 41 Report #: [id number] THIS REPORT FOR: //name// Report Transmitted: 03/08/2019 14:35 EMS Care Summary [facility] MED-ACT Incident [id number] @ 02/27/2019 10:27 Incident Location [address] [place] [address] Patient ZBIGNIEW COREA Male, 73 Years 1945 Patient Address [address] [place] [address] Patient History Hypertension,Stroke/CVA, Patient Allergies Other drug allergy, Patient Medications Lisinopril, Duloxetine, Chief Complaint "He stopped responding to me" Disposition Transported No Lights/[place] Dispatch Reason Stroke/CVA Transported To [facility] Narrative upon our arrival located pt lying supine in nearby bedroom of private residence with FD, PD and his spouse at his side. pt's spouse explained she was conducting physical therapy with him when she noticed him "shaking" with a change in mentation per her account. pt's spouse reported the pt is typically [address] [address] EMS Patient Care Report Name: ZBIGNIEW COREA JR Room #: 350-P [facility]#: [id number] Admission: 02/27/19 Attend Phys: Aviva Dawn MD Discharge: 03/03/19 Date of : 41 Report #: [id number] alert with a described GCS of 15. pt reported to have a history of CVA without unilateral deficits described by the pt's spouse. pt's spouse confirmed the "shaking" was in his upper extremities only and lasted "less than 30 seconds." pt's spouse stated, "He stopped responding to me" which prompted her to summon 911. pt did not track EMS entrance and was found lying supine in bed with FD at his side. pt found with a NRB in place with a reported rA SPO2 of 90% per [place] [facility]. pt additionally noted to have a urinary catheter in place with an adult brief and signs of incontinence. v/s obtained. stroke screen conducted and found to be inconclusive. 12 Lead EKG applied and blood glucose measured. pt noted to have snoring respirations, easily corrected by alignment of his airway. pt sheet lifted to EMS cot where he was secured in a POC with appropriate seatbelts applied. EMS confirmed with pt's spouse that pt had not recently sustained any trauma, specifically a fall. pt's spouse re-confirmed his last known well of 10:15 with an acute change of mental status after his episode of "shaking" during their physical therapy. venous access obtained in EMS unit. report called to ED without incident. upon arrival report given to ED RN without incident. pt sheet lifted to ED bed 8 with rails upx2 and staff at his side. Appended: destination amended on 03/08/2019 to reflect correct transport destination of [facility]. previous reflection of [facility] as transport destination was a documentation error. no further corrections, changes or additions were made. Initial Vitals @10:55P: 98,R: 10,BP: 75/52,GCS: 6,SpO2: 98,Revised Trauma: 8, @10:50P: 97,R: 10,BP: 121/86,GCS: 6,SpO2: 97,Revised Trauma: 10, @10:45P: 89,R: 10,BP: 67/45,GCS: 6,SpO2: 96,Revised Trauma: 8, @11:02P: 90,R: 10,BP: 100/61,GCS: 6,SpO2: 98,Revised Trauma: 10, @10:44P: 85,R: 10,BP: 67/45,GCS: 6,Glucose: 94,SpO2: 98,Revised Trauma: 8, @11:04P: 98,R: 10,BP: 103/56,GCS: 6,SpO2: 98,Revised Trauma: 10, @10:57P: 102,R: 10,BP: 100/60,GCS: 6,SpO2: 96,Revised Trauma: 10, Assessments @10:44MENTAL:Unresponsive,SKIN:Diaphoresis,Pale,HEENT:Eyes: Right Pupil: 3-mm,Eyes: Left Pupil: 3-mm,LUNG SOUNDS:ABDOMEN:PELVIS//GI:Incontinence,EXTREMITIES:PULSE:NEURO: Impression Altered Mental Status Procedures @10:4412-Lead ECGResponse: UnchangedSucceeded@10:49Saline Lock 500cc (18 ga) Site: Hand-RightResponse: UnchangedSucceeded@11:00Saline Lock 10cc (20 ga) Site: Hand-LeftResponse: UnchangedSucceeded Timeline [facility] [address] [place] [address] EMS Patient Care Report Name: ZBIGNIEW COREA JR Room #: 350-P [facility] IN M.R.#: [id number] Admission: 02/27/19 Attend Phys: Aviva Dawn MD Discharge: 03/03/19 Date of : 41 Report #: [id number] 10:27,Call Received 10:27,Psap Call 10:27,Dispatched 10:29,En Route 10:38,On Scene 10:40,At Patient 10:44,12-Lead ECG,Response: UnchangedSucceeded, 10:44,BP: 67/45 M,PULSE: 85,RR: 10 R,SPO2: 98 Ox,ETCO2: ,B,PAIN: ,GCS: 6, 10:45,BP: 67/45 M,PULSE: 89,RR: 10 R,SPO2: 96 Ox,ETCO2: ,BG: ,PAIN: ,GCS: 6, 10:49,Saline Lock 500cc 18 ga Site: Hand-Right,Response: UnchangedSucceeded, 10:50,BP: 121/86 M,PULSE: 97,RR: 10 R,SPO2: 97 Ox,ETCO2: ,BG: ,PAIN: ,GCS: 6, 10:50,Depart Scene 10:55,BP: 75/52 M,PULSE: 98,RR: 10 R,SPO2: 98 Ox,ETCO2: ,BG: ,PAIN: ,GCS: 6, 10:57,BP: 100/60 M,PULSE: 102,RR: 10 R,SPO2: 96 Ox,ETCO2: ,BG: ,PAIN: ,GCS: 6, 11:00,Saline Lock 10cc 20 ga Site: Hand-Left,Response: UnchangedSucceeded, 11:02,BP: 100/61 M,PULSE: 90,RR: 10 R,SPO2: 98 Ox,ETCO2: ,BG: ,PAIN: ,GCS: 6, 11:04,BP: 103/56 M,PULSE: 98,RR: 10 R,SPO2: 98 Ox,ETCO2: ,BG: ,PAIN: ,GCS: 6, 11:08,At Destination 11:29,Call Closed Disclaimer v1.1 Copyright 2019 [employer] This EMS Care Summary contains data elements from the applicable legal record (which may be displayed differently). It is designed to provide pertinent information for the following purposes: continuity of care, clinical quality, and state data reporting. The complete legal record is available to ED staff and administrators of the receiving hospital in [employer]'s Patient Tracker. All data is provided "as is."
[~2019-02-27 11:06] MED LIST changes: +ASPIRIN325 PO; +B-12500 MCG PO; +LISINOPRIL10 MG PO; +NEURONTIN 300300 M1 PO; +VISINE-A EYE DR15 ML OPHTHALMIC
[2019-02-27 11:07] VITALS: BP 95/69
[2019-02-27 11:28] LABS: URINE BILIRUBIN NEGATIVE (Negative); URINE BLOOD 1+ (Negative); URINE CLARITY CLOUDY; URINE COLOR YELLOW; URINE GLUCOSE-RANDOM* NEGATIVE (Negative); URINE KETONES NEGATIVE (Negative); URINE LEUKOCYTES-REFLEX 3+ (Negative); URINE NITRITE-REFLEX NEGATIVE (Negative); URINE PROTEIN (DIPSTICK) TRACE (Negative); URINE SPECIFIC GRAVITY 1.015 (1.005-1.035)
[2019-02-27 11:29] LABS: ABSOLUTE NEUTROPHILS 4.3 thou/uL (1.4-8.2); BASOPHILS 1.1 % (0.0-2.0); EOSINOPHILS 0.3 % (0.0-3.0); HEMATOCRIT 48.8 % (42.0-52.0); HEMOGLOBIN 16.5 gm/dL (14.0-18.0); LYMPHOCYTES 28.2 % (24.0-44.0); MCH 31.1 pg (26.0-34.0); MCHC 33.8 g/dL (28.0-37.0); MCV 91.9 fL (80.0-100.0); MONOCYTES 8.1 % (1.0-8.0); PLATELET COUNT 151 thou/uL (150-400); POLYS 62.3 % (36.0-66.0); RBC 5.31 mil/uL (4.50-6.00); RDW 13.9 % (10.5-14.5); WBC 6.8 thou/uL (4.0-11.0)
[2019-02-27 11:36] LABS: ANION GAP 11 mmol/L (7-16); BUN 17 mg/dL (7-18); CALCIUM 8.5 mg/dL (8.5-10.1); CHLORIDE 105 mmol/L (98-107); CO2 23 mmol/L (21-32); CREATININE 1.3 mg/dL (0.7-1.3); GLUCOSE 142 mg/dL (74-106); POTASSIUM 5.3 mmol/L (3.5-5.1); SODIUM 139 mmol/L (136-145)
[2019-02-27 11:40] LABS: BACTERIA-REFLEX 1-9 Few /HPF (None Seen); CASTS None Seen /LPF (None Seen); CRYSTALS None Seen /LPF (None Seen); SQUAMOUS None Seen /LPF (0-3); URINE WBC-REFLEX >25 Many /HPF (0-5)
[2019-02-27 11:41] LABS: APTT 24.6 Seconds (24.5-32.8); PROTIME 10.7 Seconds (9.3-11.4)
[2019-02-27 11:46] LABS: ALBUMIN 3.3 g/dL (3.4-5.0); SGOT 45 U/L (15-37); SGPT 54 U/L (30-65); TOTAL BILIRUBIN 0.9 mg/dL (<0.1-1.0); TOTAL PROTEIN 7.1 g/dL (6.4-8.2); TROPONIN-I <0.06 ng/mL (<0.06)
[2019-02-27 11:49] LABS: AMP/METHAMP Negative (Negative); BARBITURATES Negative (Negative); BENZODIAZEPINES Negative (Negative); COCAINE Negative (Negative); METHADONE Negative (Negative); OPIATES Negative (Negative); PCP Negative (Negative)
[2019-02-27 12:17] LABS: BE(vivo) -1.1 mmol/L (-2 to +3); HCO3 24.5 mmol/L (22.0-26.0); PO2 74.5 mmHg (80.0-100.0); pH 7.364 (7.360-7.450); sO2 94.5 % (92.0-98.0)
[2019-02-27 15:06] VITALS: BP 127/70
[2019-02-27 17:15] VITALS: BP 102/78
[2019-02-27 17:35] VITALS: BP 135/74
[2019-02-27 19:15] VITALS: BP 145/52
--- NOTE | 2019-02-27 20:03 | NUR ---
PT ADMITTED FROM ER @ 1745...LIVES AT HOME WITH SPOUSE...WAS DOING PT AND NOTED HE APPEARED TO HAVE SEIZURE ABOUT 5 MIN THEN HE WAS NONRESPONSIVE...HE WAS ABLE TO RESPOND WHEN REACHED ED AND DR VILLANUEVA WAS CONSULTED.. SPOUSE AND PATIENT REQUESTS SWS TO ASSIST WITH ADVANCED DIRECTIVE...
[2019-02-28] VITALS: BP 135/77
[2019-02-28 03:45] VITALS: BP 129/61
[2019-02-28 05:51] LABS: HEMATOCRIT 45.6 % (42.0-52.0); HEMOGLOBIN 15.2 gm/dL (14.0-18.0); MCH 30.7 pg (26.0-34.0); MCHC 33.4 g/dL (28.0-37.0); MCV 91.9 fL (80.0-100.0); RBC 4.97 mil/uL (4.50-6.00); RDW 13.9 % (10.5-14.5); WBC 7.4 thou/uL (4.0-11.0)
[2019-02-28 06:10] LABS: CALCIUM 8.6 mg/dL (8.5-10.1); CREATININE 1.2 mg/dL (0.7-1.3); MAGNESIUM 1.9 mg/dL (1.8-2.4); PHOSPHORUS 3.4 mg/dL (2.5-4.9)
[2019-02-28 06:11] LABS: POTASSIUM 3.9 mmol/L (3.5-5.1)
--- NOTE | 2019-02-28 07:51 | NUR ---
ASSUMED CARE AT 1900, COMPLETED ADMISSION ASSESSMENT. PT DENIES PAIN, SOB, OR NAUSEA. FLAT AFFECT, ALERT TO SELF AND PLACE, BUT SLOW TO ANSWER QUESTIONS THAT WITH FURTHER PROMPTING WOULD JUST STATE "I DON'T KNOW." SUPRAPUBIC CATH IN PLACE DRAINING LIGHT YELLOW URINE WITH SEDIMENT, CHANGED LEG BAG TO FULL SCHULTE DRAIN BAG. IVF INFUSING OVERNIGHT. STRONG UPPER ARM STRENGTH, ABLE TO MOVE LEGS IN BED BUT NONWEIGHT BEARING/W-C BOUND. NO OTHER CONCERNS, SHIFT REPORT GIVEN AT 0700.
[2019-02-28 08:00] VITALS: BP 153/79
[2019-02-28 12:23] VITALS: BP 162/81
--- NOTE | 2019-02-28 12:35 | EKG ---
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1945 Requested By: Jair Alberto Order Number: [id number] MD: Les Boss Measurements Intervals [place] Rate: 104 P: SC: QRS: -49 QRSD: 90 T: 83 QT: 361 QTc: 475 Interpretive Statements Atrial fibrillation Left anterior fascicular block Abnormal R-wave progression, early transition Compared to ECG 10/06/2017 10:27:49 Atrial fibrillation has replaced sinus rhythm Ventricular premature complex(es) no longer present Electronically Signed On 02-28-2019 12:35:19 CDT by Les Boss [email or web address] <ELECTRONICALLY SIGNED> By: Les Boss MD, [facility] 02/28/19 1235 1130 1130 Les Boss MD, [facility] /EPI
--- NOTE | 2019-02-28 12:36 | NUR ---
PATIENT OFF UNIT FOR MRI AT THIS TIME. HE HAD AN EEG PRIOR TO LEAVING THE UNIT. HE WORKED WITH PT BEFORE THAT. HE BRUSHED HIS TEETH AND WASHED HIS FACE, AND SAT ON THE SIDE OF THE BED.
--- NOTE | 2019-02-28 14:37 | NUR ---
ASSESSMENT: CM REVIEWED CHART AND MET WITH PATIENT AT THE BEDSIDE. PT WAS ADMITTED FOR SEIZURE. PT IS WHEELCHAIR BOUND AND IS FROM HOME WHERE HIS IS HIS PRIMARY CAREGIVER. PT REPORTS THEY HAVE A RAMP TO ENTER THE HOME. PT REPORTS HAVING A SLIDING BOARD, WHEELCHAIR, AND STOOL RISER. PT REPORTS THEY HAVE A SHOWER CHAIR IN THE SHOWER. PT STATES HIS HELPS HIM WITH TRANSFERS. PT REPORTS HE HAS HAD HH IN THE PAST BUT NOT CURRENTLY AND IS UNSURE THE AGENCY. CM ATTEMPTED TO CONTACT PATIENTS BETY RODNEY BUT UNABLE TO REACH AND LEFT VM. PT IS TO HAVE MRI AND EEG. PT HAS BEEN TO [facility] IN THE PAST FOR A REHAB STAY. CM WILL CONTINUE TO FOLLOW TO ASSIST NEEDED.
[2019-02-28 15:24] VITALS: BP 164/91
--- NOTE | 2019-02-28 16:53 | NUR ---
I have reviewed the student's documentation.
--- NOTE | 2019-02-28 16:54 | NUR ---
PATIENT ASSESSMENTS AND VITAL SIGNS DOCUMENTED. HE HAS HAD MULTIPLE TESTS TODAY. DIET ORDER TO BE PLACED BY PHYSICIAN PENDING BEDSIDE SWALLOW EVALUATION. PLAN OF CARE IS TO INCREASE ACTIVITY AND TO PROVIDE NUTRITION, WHILE MONITORING FOR SEIZURE ACTIVITY.
[2019-02-28 19:40] VITALS: BP 153/82
--- NOTE | 2019-02-28 19:51 | NUR ---
NURSE PERFORMED BEDSIDE SWALLOW EVALUATION PRIOR TO SUPPER TONIGHT. WITH WATER, NO SIGNS/SYMPTOMS OF ASPIRATION. WITH CRACKER, NO SIGNS AND SYMPTOMS OF ASPIRATION. USING A STRAW, NO S/S OF ASPIRATION. HE WAS ABLE TO FEED HIMSELF. NO HOARSE VOICE SOUNDS NOTED, NO COUGHING, NO CLEARING OF HIS THROAT.
[2019-03-01 03:07] VITALS: BP 132/66
[2019-03-01 05:54] LABS: HEMATOCRIT 46.2 % (42.0-52.0); HEMOGLOBIN 15.5 gm/dL (14.0-18.0); MCH 30.5 pg (26.0-34.0); MCHC 33.6 g/dL (28.0-37.0); MCV 90.7 fL (80.0-100.0); RBC 5.09 mil/uL (4.50-6.00); RDW 13.7 % (10.5-14.5); WBC 7.4 thou/uL (4.0-11.0)
--- NOTE | 2019-03-01 05:58 | NUR ---
ASSUMED CARE FOR PT AT 1900. VSS AND PT HAS NO COMPLAINTS OF PAIN OR NAUSEA. ADDED LOW LOSS PUMP DUE TO PT BEING WHEELCHAIR BOUND. TELE SHOW PT RUNNING TACHY AND TRIGEMENY. HOURLY ROUNDING AND CALL LIGHT WITHIN REACH.
[2019-03-01 06:08] LABS: CALCIUM 8.5 mg/dL (8.5-10.1); CREATININE 1.3 mg/dL (0.7-1.3); PHOSPHORUS 2.9 mg/dL (2.5-4.9); POTASSIUM 3.6 mmol/L (3.5-5.1)
[2019-03-01 07:19] VITALS: BP 118/65
[2019-03-01 11:03] VITALS: BP 108/61
--- NOTE | 2019-03-01 13:36 | NUR ---
ON-GOING ASSESSMENT: CM REVIEWED CHART AND MET WITH PATIENT AT THE BEDSIDE. CM SPOKE WITH ATTENDING. PHYSICAL THERAPY IS RECOMMENDING POSSIBLE POST ACUTE CARE. CM DISCUSSED WITH PATIENT AND HIS . PT WAS AT [facility] IN THE PAST AND THEY HAD A TERRIBLE EXPERIENCE AND SHE DOES NOT WANT HIM TO GO BACK TO A SNF. PTS REPORTS HE HAD BEEN TO [facility] IN THE PAST AND IS WANTING TO KNOW IF THAT IS AN OPTION. CM DISCUSSED WITH ATTENDING AND CONSULT FOR [facility] WAS PLACED. CM NOTIFIED [facility]. AWAITING ON INPUT FROM . CM WILL CONTINUE TO FOLLOW TO ASSIST NEEDED.
[2019-03-01 15:12] VITALS: BP 121/61
--- NOTE | 2019-03-01 19:35 | NUR ---
Patient up to chair with OT. Patient is A+Ox3, can feed self. IV antibiotics. Progressing towards discharge goals.
[2019-03-01 20:12] VITALS: BP 136/67
[2019-03-02 03:44] VITALS: BP 106/61
--- NOTE | 2019-03-02 05:38 | NUR ---
RESUMED CARE FOR PT. PT IS A/0X4 BUT SLOW WITH RESPONSES DUE TO PREVIOUS CVA. LOOKING FOR REHAB FACILITY AND POSSIBLITY OF DC ON 03/03. VSS AND TELE SHOWS SR W/PVC'S AND TRIGEMINY. HOURLY ROUNDING. PT RESTED COMFORTABLY ALL EVENING.
[2019-03-02 05:46] LABS: HEMATOCRIT 44.3 % (42.0-52.0); HEMOGLOBIN 14.9 gm/dL (14.0-18.0); MCH 30.8 pg (26.0-34.0); MCHC 33.5 g/dL (28.0-37.0); MCV 91.9 fL (80.0-100.0); RBC 4.82 mil/uL (4.50-6.00); RDW 13.9 % (10.5-14.5); WBC 5.7 thou/uL (4.0-11.0)
[2019-03-02 06:00] LABS: CALCIUM 8.5 mg/dL (8.5-10.1); CREATININE 1.2 mg/dL (0.7-1.3); PHOSPHORUS 3.2 mg/dL (2.5-4.9); POTASSIUM 3.8 mmol/L (3.5-5.1)
[2019-03-02 07:42] VITALS: BP 128/82
[2019-03-02 11:49] VITALS: BP 125/64
--- NOTE | 2019-03-02 12:41 | NUR ---
ON-GOING ASSESSMENT: CM REVIEWED CHART AND SPOKE WITH [facility]. THEY CAN ACCEPT PATIENT TO [facility] TOMORROW 03/03. ATTENDING IS AWARE AND CM SPOKE WITH PATIENTS TO UPDATE.
[2019-03-02 15:57] VITALS: BP 140/66
--- NOTE | 2019-03-02 16:23 | NUR ---
ASSUMED PATIENT CARE AT 0700. A/O X4. UP WITH ASSISTED TO TRANSFER. PROGRESSING TOWARDS POC GOALS.
[2019-03-02 19:31] VITALS: BP 144/85
--- NOTE | 2019-03-03 03:14 | NUR ---
PATIENT IS ALERT TO PERSON SITUATION. PATIENT IS MAX 2 PIVIOT TRANSFER. PATIENT IS NSR C PVCS ON TELE. PATIENT HAS A SUPRAPUBIC CATH. PATIENTS LBM WAS THE . PATIENT IS Q2TURN. PATIENT IS PENDING 5 NORTH TRANSFER TODAY. PATIENT IS ON ROOM AIR. PATIENT DENIES PAIN. PATIENT IS IN SEIZURE PRECAUSIONS. PATIENT IS RESTING COMFORTABLY IN BED. WCM. PATIENT IS PROGRESSING TO GOALS
[2019-03-03 04:00] VITALS: BP 145/78
[2019-03-03 07:27] VITALS: BP 119/70
[2019-03-03] MEDS ORDERED: TERAZOSIN HCL5 MG PO (09:00)
[2019-03-03] MEDS ORDERED: ADULT LOW DOSE81 MG PO (09:01)
[2019-03-03] MEDS ORDERED: KEPPRA1000 MG PO (09:02)
[2019-03-03] MEDS ORDERED: FINASTERIDE5 MG PO (09:03)
--- NOTE | 2019-03-03 11:43 | NUR ---
ON-GOING ASSESSMENT: CM REVIEWED CHART. PT HAS ORDERS TO DISCHARGE TODAY TO [facility]. BEDSIDE RN AWARE AND HAS THE NUMBER FOR REPORT. PT AND AWARE AND NO FURTHER QUESTIONS AT THIS TIME.
[2019-03-03 12:06] VITALS: BP 135/67
[2019-03-03 15:28] VITALS: BP 123/73
--- NOTE | 2019-03-07 07:09 | H ---
[facility] [address] [place] [address] HISTORY AND PHYSICAL Name: ZBIGNIEW DUQUE Room #: 350-P [facility] IN M.R.#: [id number] Admission: 02/27/19 Attend Phys: Aviva Dawn MD Discharge: 03/03/19 Date of : 41 Report #: [id number] THIS REPORT FOR: //name// CC: Shweta Dawn DATE OF SERVICE: 02/27/2019 ADMISSION HISTORY AND PHYSICAL EXAMINATION PRIMARY CARE PHYSICIANS: Dr. Caitlin Phoenix at [facility] and Dr. Shweta Shanks. CHIEF COMPLAINT: Seizure this morning. HISTORY OF PRESENT ILLNESS: The patient is a very pleasant 73-year-old gentleman with a prior history of a hemorrhagic stroke or subdural hematoma along with multiple sclerosis. The patient lives at home and is wheelchair bound or bed bound and needs assistance with all his activities of daily living, and his is the primary institutional research director. The patient's informs that the patient was doing physical therapy this morning when he started having both upper hand shaking and the patient's eyes rolled back and he was noncommunicative and unresponsive according to the and the whole thing lasted less than 1 minute. The patient was breathing hard, and besides shaking, he was also completely noncommunicative. The patient did not have any bladder or bowel incontinence and called 911. When the ambulance arrived, the patient was incoherent and postictal and remained postictal until he arrived in the Emergency Room as per Dr. Alberto who examined and evaluated the patient in the Emergency Room. According to the , the patient has had a hemorrhagic stroke. There is a question of subdural hematoma and patricia hole done instead of hemorrhagic stroke. However, the is pretty sure that he had a stroke 3 years ago at [facility] and was treated at that time and has never had any seizure disorder prior to this episode that happened today. The patient has not had any recent fevers, shaking chills, night sweats or nausea, vomiting, diarrhea or any dark urine. The patient has suprapubic catheter and it has changed every 3 weeks by the home health nurse, and the patient has not had any problems with the suprapubic catheter or urine output either. The patient has lower extremity weakness and he needs assistance as indicated above; however, informs that his upper extremity and shoulder muscle strength is pretty strong. PAST MEDICAL HISTORY: Significant for: 1. Multiple sclerosis. 2. Hypertension. 3. Depression. 4. Stroke versus subdural hematoma and patricia hole. [address] [address] HISTORY AND PHYSICAL Name: ZBIGNIEW DUQUE JR Room #: 350-P [facility] IN M.R.#: [id number] Admission: 02/27/19 Attend Phys: Aviva Dawn MD Discharge: 03/03/19 Date of : 41 Report #: [id number] 5. Subdural hematoma, status post patricia hole placed with further drainage. ALLERGIES: THE PATIENT IS ALLERGIC TO BACLOFEN, WHICH CAUSES HALLUCINATIONS AND ALTERED MENTAL STATUS. CURRENT MEDICATIONS: 1. Vitamin C. 2. Duloxetine. 3. Lisinopril. 4. Vitamin D. 5. Tylenol. 6. Vitamin B12. PAST SURGICAL HISTORY: The patient has had: 1. Suprapubic catheter. 2. Patricia hole placement for subdural hematoma. 3. Tonsillectomy when he was young. 4. Appendectomy. 5. Back surgery x 2. FAMILY HISTORY: Father had coronary artery disease and myocardial infarction. Mother had lupus. PERSONAL AND SOCIAL HISTORY: The patient smoked approximately 3 cigarettes to 1 cigar a day; however, has not had any tobacco in last 50 years. Alcohol, the patient informs me that he loves alcohol and he can have approximately 2-3 drinks of the Keith Reeves at least once a month, and if he has any social visits, then a glass of wine or 1 beer, but he does not drink daily. The patient denies any recreational drugs and his Emergency contact is his , Iva Duque, and her number is [phone]. She is the durable power of assistant prosecuting attorney for health, and the patient does not have advanced directive and wishes to be full code. REVIEW OF SYSTEMS: A 10-point review of systems was done and it was negative. PHYSICAL EXAMINATION: VITAL SIGNS: When the patient presented to the Emergency Room, he had a temperature 36.8, heart rate 111, respirations 16, blood pressure 95/69, pulse oximeter 100% on nasal cannula 2 liters and BMI 29.5 kilograms per square meter. Vital signs at the time of examination, the patient had temperature 36.8, heart rate 99, respirations 14, blood pressure 127/70, and pulse oximeter 99% on 2 liters of oxygen by nasal cannula. GENERAL: Alert, awake and oriented to time, place and person, very pleasant 73-year-old gentleman who appears older than his stated age, but is in no acute distress. HEENT: Normocephalic, atraumatic. Pupils are equally round and reactive to [facility] [address] [place] [address] HISTORY AND PHYSICAL Name: ZBIGNIEW DUQUE JR Room #: 350-P [facility] IN [facility]#: [id number] Admission: 02/27/19 Attend Phys: Aviva Dawn MD Discharge: 03/03/19 Date of : 43 Report #: [id number] light. Extraocular muscle movements are intact. Oropharynx is clear. Mucous membranes are moist. NECK: Supple. No JVD, no lymphadenopathy. HEART: S1, S2 irregularly irregular. LUNGS: Clear to auscultation bilaterally without any crackles or wheezes. ABDOMEN: Soft, nontender, nondistended, normal active bowel sounds and the patient had a suprapubic catheter present without any erythema or induration noted at the catheter insertion site. EXTREMITIES: No edema of both lower extremities. NEUROLOGIC: Both lower extremity weakness with flaccid paralysis noted, which is unchanged according to the . Both upper extremities with normal tone and normal strength noted. Neurological exam is otherwise unremarkable with cranial nerves 2-12 intact. LABORATORY DATA AND X-RAYS: 1. His drug screen is positive for marijuana. Urinalysis with wbc's greater than 25 per high power field and 3+ leukocyte esterase, nitrite negative, specific gravity 1.015 and pH 8.0. 2. Serum alcohol less than 10. 3. CPK 133. 4. Troponin I less than 0.06. 5. Chemistries indicate sodium 139, potassium 5.3, chloride 104, bicarbonate 23, anion gap 11, BUN 17, creatinine 1.3, calculated GFR 54, glucose 142, calcium 8.5, magnesium 2.0, total bilirubin 0.9, AST 45, ALT 54, alkaline phosphatase 79. Creatine kinase 133. Troponin I less than 0.06. C-reactive protein 4.3, total protein 7.1, albumin 3.3. Serum alcohol less than 10. 6. Coagulation panel indicates 10.7 PT, INR 1.0, PTT 24.6. 7. Hematology indicates WBC normal at 6.8, hemoglobin 16.5, hematocrit 48.8, platelets 151 with segmented neutrophil 62.3 and monocyte mildly elevated at 8.1. 8. The patient had blood gas done with pH 7.364, pCO2 of 44, pO2 of 74.5 on 2.5 liters per minute nasal cannula. The patient had lactate at the time of admission at 12:00 noon. It is 3.09 and the repeat lactic acid after fluid bolus and 40 minutes was 2.9, down from 3.9. 9. CT scan of the head was done, which indicated right frontal encephalomalacia and dilatation in the frontal horn of the right lateral ventricle related to old CVA, some subacute component noted. No intracranial hemorrhage or extraaxial fluid collection noted. Paranasal sinuses were within normal limits and atherosclerosis process noted. Right frontal encephalomalacia with old CVA, partially subacute component of CVA cannot be excluded. Further MRI is recommended. 10. Electrocardiogram was done and it indicates atrial fibrillation with left anterior fascicular block with a heart rate of 104 at the time of admission. A chest x-ray indicates no acute cardiopulmonary process and moderate hiatal hernia noted. [address] [address] HISTORY AND PHYSICAL Name: ZBIGNIEW DUQUE JR Room #: 350-P [facility] IN ..#: [id number] Admission: 02/27/19 Attend Phys: Aviva Dawn MD Discharge: 03/03/19 Date of : 41 Report #: [id number] ASSESSMENT: 1. Seizure, new onset, with a postictal state in a patient with prior cerebrovascular accident, encephalomalacia and multiple sclerosis. 2. Hypoxemia, unexplained. 3. New-onset atrial fibrillation. 4. Hypertension. 5. Urinary tract infection. 6. Chronic marijuana use and intermittent alcohol use. 7. Moderate hiatal hernia. 8. The patient wishes to be full code. PLAN: 1. The patient is being admitted to Critical Care Telemetry and we will go ahead and get CT angiogram, PE protocol as well as CTA head and neck. Neurology consult has been entered. The patient would be given heparin subcutaneous 5000 t.i.d. with the first dose now. As the patient has a history of hemorrhagic CVA versus subdural hematoma and has encephalomalacia, so before therapeutic heparinization would make sure the patient does ____ have pulmonary embolism or any pulmonary etiology. We will go ahead and get venous Dopplers as well tonight. 2. For UTI, ceftriaxone has been started. It is a complicated UTI. The patient has suprapubic catheter and so it could have been colonization; however, we will go ahead and treat for now as 3+ leukocyte esterase and significant pyuria. 3. For MS, the patient is not on any medication and is followed by Dr. Caitlin Phoenix at [facility]. We will wait for Neurology feedback. 4. Seizure precaution and fall precaution has been written. 5. For hypertension, we will hold antihypertensives at the present time, the patient did have some hyperkalemia at the time of admission and we will go ahead and repeat. 6. Elevated lactate, likely secondary to seizure plus-minus UTI, we will go ahead and give 500 mL bolus and repeat lactic acid level and follow up on it. 7. New-onset atrial fibrillation, venous thromboembolism has to be ruled out and we will go ahead and order an echocardiogram as well and plan of care was discussed with the and the patient as well, who was present at the bedside. Neurology consult has been entered. Full code order has been written. GI prophylaxis with Pepcid and DVT prophylaxis with heparin. We will not start pneumatic compression devices at the present time until the venous Doppler is done, as the patient has minimal movement in the lower extremities. 8. Chronic kidney disease, stage 2. We will monitor kidney function closely [facility] [address] [place] [address] HISTORY AND PHYSICAL Name: ZBIGNIEW DUQUE Room #: 350-P [facility] IN [facility]#: [id number] Admission: 02/27/19 Attend Phys: Aviva Dawn MD Discharge: 03/03/19 Date of : 41 Report #: [id number] and we will give gentle IV fluid and monitor. Plan of care was discussed with the patient. <ELECTRONICALLY SIGNED> By: Aviva Dawn MD 03/07/19 0709 [id number] Aviva Dawn MD /nt
--- NOTE | 2019-03-16 11:04 | HC ---
[facility] [place] [address] CONSULTATION Name: NAHOMYZBIGNIEW Hemant PEDRAZA Room #: 350-P [facility] IN .R.#: [id number] Admission: 02/27/19 Attend Phys: Aviva Dawn MD Discharge: 03/03/19 Date of : 43 Report #: [id number] THIS REPORT FOR: //name// CC: Shweta Dawn DATE OF SERVICE: 03/01/2019 HISTORY OF PRESENT ILLNESS: The patient is a 73-year-old white male who has a history of premorbid wheelchair bound with multiple sclerosis. He also has a history of a prior CVA 3 years ago and has had a subdural hematoma with patricia hole in 2016. He had a seizure at home, noted to have upper extremity shaking with suspected seizure and postictal presentation. He was seen by Neurology. MRI did not show any new acute infarct. Plan include EEG and Keppra is ordered as well as vitamin B6. The patient is noted to have a functional decline from his prior status and we are seeing him in rehabilitation medicine consultation. PAST MEDICAL HISTORY: Prior history includes prior right frontal hemorrhage status post craniotomy. He has a history of multiple sclerosis and is noted to have spastic paraparesis. He has had back surgery x 2, history of suprapubic catheter. MEDICATIONS: Please see the full medication listing. ALLERGIES: INCLUDE BACLOFEN, WHICH CAUSES CONFUSION. FAMILY HISTORY: Father had coronary artery disease and myocardial infarction. Mother had lupus. HABITS: Limited smoking tobacco approximately 3 cigarettes to one cigar a day, but no tobacco in the last 50 years. Alcohol 2-3 drinks of Keith Rankinels once a month. SOCIAL HISTORY: Lives with his , house. There is a ramp. He has a wheelchair that he uses. He was able to transfer with a sliding board. is there as his caregiver. REVIEW OF SYSTEMS: No current complaints of chest pain, shortness of breath or abdominal discomfort. PHYSICAL EXAMINATION: GENERAL: A 73-year-old white male in no obvious distress. VITAL SIGNS: Last recorded temperature 97.3, pulse 73, respirations 16, blood pressure 108/61. NEUROLOGIC: He is alert. Limited verbalizations, but appears appropriate. HEENT: Facies appeared symmetric. [address] [address] CONSULTATION Name: ZBIGNIEW COREA Room #: 350-[facility] IN [facility].#: [id number] Admission: 02/27/19 Attend Phys: Aviva Dawn MD Discharge: 03/03/19 Date of : 43 Report #: [id number] EXTREMITIES: Upper extremities revealed strength at least a grade 4- to 3+/5. Lower extremities: He does have some strength probably 3- to 3. He has decreased coordination. There appears to be some increased tone, although there was no clonus at the ankles. No calf swelling. Functionally, he is noted to have decreased cognition needing cues and redirection, mod assist required for wheelchair setup and sustained anterior and lateral weight shift during squat pivot. ASSESSMENT: A 73-year-old white male with the following problem list: 1. New onset seizure with postictal status and functional decline. 2. Multiple sclerosis with spastic paraparesis, premorbid wheelchair bound. 3. Prior subdural hematoma, status post patricia hole in 2016. 4. Suprapubic catheter. 5. Functional decline from his premorbid status. PLAN: He is a candidate for an acute in-hospital inpatient rehabilitation stay. Plan on transfer to the acute in-hospital inpatient rehabilitation cardona when medically cleared and a bed available and if the patient and are agreeable. We will be glad to follow along with you regarding his rehab therapy issues in the meantime. <ELECTRONICALLY SIGNED> By: Lalo Reed MD 03/16/19 1104 [id number] Lalo Reed MD /[facility]
[2019-04-16] MEDS ORDERED: FLOMAX0.4 MG PO (18:22)
== END 2019-03-03 17:45 | DRG 100 ==
LOC: ER 11:06 → 4S 13:36 → EROBS 13:36 → 4S 17:15 → 3W 03-02 13:29
PROVIDERS: Emergency Medicine; ADMIT Internal Medicine
DX: G40.909 Epilepsy, unspecified, not intractable, without status epilepticus (principal); J96.01 Acute respiratory failure with hypoxia; N39.0 Urinary tract infection, site not specified; A52.17 General paresis; G04.1 Tropical spastic paraplegia; R09.02 Hypoxemia; G93.89 Other specified disorders of brain; I10 Essential (primary) hypertension; F32.9 Major depressive disorder, single episode, unspecified; G35 Multiple sclerosis; I48.91 Unspecified atrial fibrillation; K44.9 Diaphragmatic hernia without obstruction or gangrene; F12.90 Cannabis use, unspecified, uncomplicated; F03.90 Unspecified dementia, unspecified severity, without behavioral disturbance, psychotic disturbance, mood disturbance, and anxiety; R48.2 Apraxia; E55.9 Vitamin D deficiency, unspecified; E53.8 Deficiency of other specified B group vitamins; D69.6 Thrombocytopenia, unspecified; R25.2 Cramp and spasm; Z86.73 Personal history of transient ischemic attack (TIA), and cerebral infarction without residual deficits; Z88.8 Allergy status to other drugs, medicaments and biological substances; Z82.49 Family history of ischemic heart disease and other diseases of the circulatory system; Z90.49 Acquired absence of other specified parts of digestive tract; Z72.89 Other problems related to lifestyle; Z79.82 Long term (current) use of aspirin; Z79.899 Other long term (current) drug therapy
CPT/HCPCS: 10100; 10879

== ENCOUNTER 2019-03-02 10:38 | Inpatient (IN) | payer OTHER, BC ==
[~2019-03-02] VITALS: Ht 188 cm; Wt 98.4 kg
[2019-03-03] MEDS ORDERED: TERAZOSIN HCL5 MG PO (09:00)
[2019-03-03] MEDS ORDERED: ADULT LOW DOSE81 MG PO (09:01)
[2019-03-03] MEDS ORDERED: KEPPRA1000 MG PO (09:02)
[2019-03-03] MEDS ORDERED: FINASTERIDE5 MG PO (09:03)
--- NOTE | 2019-03-03 14:48 | NUR ---
cm visited with pt at bedside, chart review. cm intro to dcp, transition of care, team meet and hh. pt preferrs going by [facility]. with verbal slow communication pt was as to confirm dme equip he uses at home. " w/c(has own wc here at bedside, ramp, slide board, shower chair"/pt. sherrill lives with anmol vaca who home with him. cm spoke with via phone call " thank you, i brought him 2 pair of warm up pants and 2 shirts. he was to lay down for me to help him get pants on but shirt he can usually do himself"/anmol vaca. noted in chart pt on ser with [facility] and nurse changes pt sup pubic cath monthly. been to [facility] in past after stroke, and been to [facility] acute rehab in past. will cont following as needed for dc needs. cm pass on n information to professor of physics about dressing and pt own wheel chair.
[2019-03-03 18:10] VITALS: BP 130/70
--- NOTE | 2019-03-03 19:28 | NUR ---
[age] YEAR OLD MALE ADMITTED TO [facility] ROOM 506 UNDER THE CARE OF DR. POSADA. PT ALERT AND ORIENTED TIMES FOUR, BUT SLOLW RESPONE TO QUESTIONS. PT VSS, SUPRAPUBIC CATH TO DD. PT DENEIS PAIN/SOA. NO SKIN ISSUES NOTED DURING ADMSSION ASSESSMENT. WILL CONTINUE TO MONITOR.
[2019-03-03 19:30] VITALS: BP 144/82
--- NOTE | 2019-03-04 02:49 | NUR ---
ASSUMED CARES AT 1900. PT ORIENTED TO PERSON AND SITUATION, FORGETFUL AND CONFUSED. PT WAS TRYING TO CALL HIS AND TOLD STAFF THAT HIS WAS TRYING TO COME UPSTAIRS AND COULDN'T BECAUSE SHE NEEDED HELP, HE CONTINUED TO STATE THAT HIS WAS COMING TO SPEND THE NIGHT HERE AND WAS HELPLESS DOWNSTAIRS. STAFF CALLED 'S NUMBER BUT NO ANSWER, SECURITY CONTACTED AND THEY SEARCHED THE PREMISES AND TRIED SEVERAL TIMES TO CALL HER WITHOUT LACK. PT'S FINALLY RESPONDED AND STATED THAT SHE WAS HOME SAFE AND THAT THE PT WAS DEFINATELY CONFUSED. ALL VITALS REMAINED STABLE. DENIES PAIN. SUPRAPUBIC CATHETER REMAINS INTACT AND PATENT,URINE IS YELLOW AND CLEAR WITH NO FOUL ODOR. PT REPOSITIONED Q2H. Q1H VISUAL CHECKS. CALL LIGHT WITHIN REACH. FALL PRECAUTIONS IN PLACE
[2019-03-04 05:38] LABS: HEMATOCRIT 41.3 % (42.0-52.0); HEMOGLOBIN 13.9 gm/dL (14.0-18.0); MCH 30.7 pg (26.0-34.0); MCHC 33.6 g/dL (28.0-37.0); MCV 91.4 fL (80.0-100.0); RBC 4.52 mil/uL (4.50-6.00); WBC 5.3 thou/uL (4.0-11.0)
[2019-03-04 05:57] LABS: CALCIUM 8.3 mg/dL (8.5-10.1); CREATININE 1.2 mg/dL (0.7-1.3); POTASSIUM 3.6 mmol/L (3.5-5.1)
[2019-03-04 07:39] VITALS: BP 129/76
--- NOTE | 2019-03-04 15:30 | NUR ---
ASSUMED CARES AT 0700. REPORTS SLEPT GOOD. PT ORIENTED TO PERSON AND SITUATION, QUIET, DOESN'T TALK MUCH, ABLE TO ANSWER SIMPLE QUESTION AND FOLLOW COMMAND. OT GAVE PT SHOWER THIS AM. ALL VITALS REMAINED STABLE. DENIES PAIN. SUPRAPUBIC CATHETER REMAINS INTACT AND PATENT, HAS 450CC URINE YELLOW. PT REPOSITIONED Q2H. OFFERED SUPPORTIVE CARE. UP TO DINNING ROOM FOR BREAKFAST AND LUNCH ABLE TO FEED HIMSELF, NEEDS CUEING AT TIME. UP TO , TRANSFERS WITH SLIDE BOARD WITH MIN ASSIST FROM STAFF AND CUEING. MORNING MEDS GIVEN. EKG ORDER FOR BASELINE AFIB TODAY. WILL CONTINUE TO MONITOR FOR THE RESULT. Q1H VISUAL CHECKS. CALL LIGHT WITHIN REACH. FALL PRECAUTIONS IN PLACE. CAME TO SEE PT EARLIER. RESTING IN BED. WILL CONTINUE TO MONITOR.
[2019-03-04 19:30] VITALS: BP 128/76
--- NOTE | 2019-03-05 05:33 | NUR ---
1899-Report received from day shift nurse and care assumed. Pt. has no c.o. pain, was turned side to side but refused to allow doing so most times, saying No, I'm okay. Seizure precautions in place, bed rails padded. Supra-pubic catheter patent and draining clear to cloudy yellow urine, catheter care done. A/O x 2, slept well tonite. SCD's in place.
[2019-03-05 08:00] VITALS: BP 100/50
--- NOTE | 2019-03-05 12:26 | EKG ---
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 : 1945 Requested By: Aviva Dawn Order Number: [id number] MD: Les Boss Measurements Intervals [place] Rate: 72 P: 39 NH: 167 QRS: -53 QRSD: 102 T: 133 QT: 399 QTc: 437 Interpretive Statements Sinus rhythm Left anterior hemiblock Nonspecific T wave abnormality Compared to ECG 02/27/2019 11:30:24 Incomplete right bundle-branch block now present Sinus rhythm has replaced atrial fibrillation Electronically Signed On 03-05-2019 12:26:10 CDT by Les Boss [email or web address] <ELECTRONICALLY SIGNED> By: Les Boss MD, [facility] 03/05/19 1226 1545 1545 Les Boss MD, [facility] /EPI
--- NOTE | 2019-03-05 14:40 | NUR ---
ASSUMED CARE AT 0700, SHIFT ASSESSMENT DONE, MEDS GIVEN, VSS. DENIES PAIN, NAUSEA, VOMITING. BP LOW THIS AM, DENIES ANY SYMPTOMS, UP WITH THERAPHY TO THE WHEEL CHAIR. SITTING IN THE DINING ROOM THIS AFTERNOON.ROOM AIR, EATING WELL. WILL CONTINUE TO ASSESS AND ASSIST WITH ADLs NEEDED.
[2019-03-05 19:49] VITALS: BP 140/60
--- NOTE | 2019-03-06 02:57 | NUR ---
ASSUMED CARE FROM DAY SHIFT PT IN DAY ROOM ASSISTED TO ROOM AMD ASSITED WITH SLIDEBOARD TO BED, PT INCONTINENT OF SOFT BROWN STOOL , MONAE CARE GIVEN AND PO MEDICATION GIVEN PRESCRIBED. DISCUSSED PLAN OF CARE AND AGREEABLE, WILL FOLLOW PLAN OF CARE AND WILL REPORT CHANGES. RESTED WELL THROUGHOUT HOURLY ROUNDS, WILL REPORT CHANGES AND ABNORMAL FINDINGS.
[2019-03-06 08:30] VITALS: BP 112/66
--- NOTE | 2019-03-06 11:11 | NUR ---
ASSUMED CARES AT 0700. NIGHT NURSE REPORT PT HAD GOOD SLEEP AND LAST BM WAS LAST NIGHT. PT ORIENTED TO PERSON AND SITUATION, QUIET, DOESN'T TALK MUCH, ABLE TO ANSWER SIMPLE QUESTION AND FOLLOW COMMAND. VSS ON RA. HELD LISINOPRIL THIS AM PER PARAMETER. DENIES PAIN. SUPRAPUBIC CATHETER REMAINS INTACT AND PATENT. OT GAVE PT BATH AND PT IS UP IN WC NOW. PT REPOSITIONED Q2H WHILE IN BED. HAS LITTLE REDNESS ON BUTTOCK. BARRIER CREAM APPLY. CONTINUE TO BE ON SEIZURE PRECAUTION. OFFERED SUPPORTIVE CARE. ENCOURAGED PT TO GO TO DINNING ROOM FOR MEALS. NEEDS CUEING AT MEALS TIME. UP TO , TRANSFERS WITH SLIDE BOARD WITH MIN ASSIST FROM STAFF AND CUEING. MORNING MEDS GIVEN WITHOUT DIFFICULTY. Q1H VISUAL CHECKS. CALL LIGHT WITHIN REACH. FALL PRECAUTIONS IN PLACE.
--- NOTE | 2019-03-06 14:10 | NUR ---
Nutrition: pt admitted with acute encephalopathy and seen per consult, no reason stated. S/W pt's family member who reports UBW 190-200# his whole life until stroke 2-3 years ago. Has since gained ~25# due to decreased activity. Currently on heart healthy diet eating 100% most meals. Likes the standard meals, was educated on option to order if desired. On vitamin D, B12 and ascorbic acid supplementation. On bowel regimen at present, BM documented today. Low nutrition risk for now.
[2019-03-06 19:24] VITALS: BP 137/76
--- NOTE | 2019-03-07 04:12 | NUR ---
ASSUMED CARE OF PT AT 1900. ALERT, COOPERATIVE. VS STABLE. REQUESTED TRANSFER TO BED, FOUND STOOL ON PT, CLOTHING, AND BEDDING, CHANGED AND CLEANED, CREAM APPLIED TO CARLITA AREAS. NO SEIZURES OBSERVED, SEIZURE PRECAUTIONS IN PLACE. DENIED PAIN. NO ACUTE DISTRESS OR DISCOMFORT NOTED. Q2 TURNS. PROGRESSING WELL TOWARDS POC GOALS.
--- NOTE | 2019-03-07 06:03 | HC ---
[facility] [place] [address] [address] [place] [address] CONSULTATION Name: ZBIGNIEW COREA JR Room #: 510-P [facility] IN M.R.#: [id number] Admission: 03/03/19 Attend Phys: Aviva Dawn MD Discharge: Date of : 41 Report #: [id number] THIS REPORT FOR: //name// CC: hSweta Dawn DATE OF SERVICE: 03/04/2019 NEUROBEHAVIORAL STATUS EXAMINATION ATTENDING PHYSICIAN: Lalo Reed MD LITHOSTRIPPER: Jimi Joyner, PhD CLINICAL PRESENTATION: The patient is a 73-year-old male admitted to the [facility] Rehabilitation Unit for comprehensive inpatient rehabilitation program. He was noted to have a shaking episode prior to his admission and was diagnosed with a new onset seizure disorder with postictal status and functional decline. An MRI of the brain did not show any new infarction. The patient has a history of MS and was premorbid wheelchair bound. He is reported to have had a CVA 3 years ago along with a subdural hematoma with patricia hole in 2016 due to a vascular hemorrhage. His assessment on admission to the rehab unit is an acute metabolic encephalopathy secondary to new onset seizure and multiple sclerosis with spastic lower body paraparesis and premorbid wheelchair bound status, history of subdural hematoma, status post patricia hole in 2016, chronic suprapubic catheter, hypertension and thrombocytopenia. A complete description of his medical condition and history can be found in his medical record. Neuropsychological consultation was requested to provide assistance in the assessment of cognitive and emotional status and to provide recommendations and services. Prior to this most recent medical event, he was living at home with his . The patient reported to have been able to propel his wheelchair without assistance. He has been independent with feeding, but required assistance with bathing, dressing and medical, financial services rep. Driving was discontinued after his stroke. The patient is , with 2 children. He is a college graduate. 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 TECHNIQUES UTILIZED: Clinical interview, review of medical records, staff consultation and behavioral observation, mini mental status exam 2 standard version, family interview - . EXAMINATION FINDINGS: The patient was cooperative during the interview. [facility] [address] [address] CONSULTATION Name: NAHOMYZBIGNIEW Hemant Room #: 510-P [facility] IN [facility].#: [id number] Admission: 03/03/19 Attend Phys: Aviva Dawn MD Discharge: Date of : 41 Report #: [id number] However, he was drowsy and required much encouragement to maintain attention and concentration. His responses are very slow and delayed. Long pauses between responses suggested possible seizure activity along with intermittent confusion during the interview. He does not report auditory or visual hallucinations. There is no evidence of aphasia. His indicates that his mood appeared good. She does not think that he is experiencing depression or anxiety. The patient does not report difficulty with cognitive functioning. He states memory, word finding are within normal limits. Sleep, appetite are described as normal. He does indicate fatigue or depressed mood. However, his insight is poor as his level of consciousness is inconsistent. The patient was unable to adequately indicate date or time. Memory could not be assessed. Attention and concentration was very poor. Naming, repetition and auditory comprehension was inconsistent. The patient was unable to copy a simple geometric design or draw a clock, suggesting severe deficits in visual spatial construction. DIAGNOSTIC IMPRESSION: Delirium, hypoactive, acute. Neurocognitive disorder, unspecified - extent to be determined, likely severe. Unspecified depressive disorder. RECOMMENDATIONS: The patient will continue to require assistance in the management of medication, finances and nutrition. He is presenting with severe deficits in functioning compared to his previous level as described by his . At this time, the delayed responses can indicate possible seizure activity. Continued neurology management of seizure activity is suggested. A followup neuropsych assessment will be of benefit following resolution of his delirium. It should be noted that the patient was seen in 2018 for neurobehavioral status exam. At that time, he was diagnosed with a major neurocognitive disorder (dementia) secondary to [place] [address] CONSULTATION Name: ZBIGNIEW COREA Room #: 510-P [facility].#: [id number] Admission: 03/03/19 Attend Phys: Aviva Dawn MD Discharge: Date of : 41 Report #: [id number] Thank you very much for allowing me to provide the consultation on this patient. <ELECTRONICALLY SIGNED> By: Jimi Joyner, PhD 03/07/19 0603 12 0527 Jimi Joyner, PhD /nt
[2019-03-07 07:48] VITALS: BP 129/70
--- NOTE | 2019-03-07 11:40 | NUR ---
ASSUMED CARE OF PT AT 0700. VSS ON RA. ALERT AND ORIENTED X4. SLOW IN RESPONSE BUT ABLE TO FOLLOW COMMANDS AND ANSWER SIMPLE QUESTIONS. COOPERATIVE REQUESTED TO GET HIM UP TO DINNING ROOM THIS AM. REASSESSMENT PER CHART. LAST BM WAS LAST NIGHT. CONTINUE TO BE ON COLACE DAILY. MORNING MEDS GIVEN ORDERED. OT WORKS WITH PT. DENIES PAIN, N/V. TRANSFER WITH SLIDE BOARD WITH MIN ASSIST. ASSISTED WITH CLEANING THIS AM. LITTLE REDNESS ON BUTTOCK, NO WOUND, BARRIER CREAM APPLIED. SUPRA PUBLIC CATH CARE DONE. SCHULTE CATH BAG PATENT WITH ADEQUATE YELLOW OUT PUT. PT MOVED TO 516 NOW. NO SEIZURES OBSERVED, SEIZURE PRECAUTIONS IN PLACE. NO ACUTE DISTRESS OR DISCOMFORT NOTED. Q2 TURNS WHILE IN BED. PROGRESSING WELL TOWARDS POC GOALS. FALL PRECAUTION IN PLACE. CALL LIGHT WITHIN REACH. WILL HAVE MEETING TODAY.
--- NOTE | 2019-03-07 12:26 | NUR ---
team meeting, recommendation: re team and dc 03/16, (pt,ot,nursing).
--- NOTE | 2019-03-07 15:48 | NUR ---
Patient to discharge 03/16/19. financial planner sent out hh referral to [facility] . Also requested they use the nurse Emily Bautista. DP will follow up.
[2019-03-07 19:55] VITALS: BP 124/58
--- NOTE | 2019-03-07 22:55 | NUR ---
ASSUMED CARE OF THE PT AT 191 PM. ALERT ET ORIENTED X 3. MAKES NEEDS KNOWN. THE PT TRANSFERS TO BED USING A SLIDE BOARD. THE PT HAS A SUPRAPUBIC CATHETER TO DEPENDENT DRAINAGE. HEART RATE REGULAR. LUNGS CLEAR BILATERALLY, RESP., EVEN, AND UNLABORED. +BS HEARD IN ALL 4 QUADRANTS. THE PT GETS AROUND IN A WHEELCHAIR. DENIES PAIN AT THIS TIME. CALL LIGHT WITHIN REACH.
--- NOTE | 2019-03-08 06:45 | NUR ---
THE PT HAS BEEN SLEEPING MOST OF THE NIGHT, SPC DRAINING WITHOUT DIFFICULTY TO DEPENDENT DRAINAGE.
[2019-03-08 07:40] VITALS: BP 148/72
--- NOTE | 2019-03-08 09:35 | NUR ---
maxwell with [facility] call and left message stating they can accept for hh needs when he is dc, fax dc orders to [facility] at discharge.
--- NOTE | 2019-03-08 11:07 | NUR ---
ASSUMED CARES AT 0700. PT AWAKE, ORIENTED TO PERSON AND PLACE, FORGETFUL AND CONFUSED. DENIES PAIN. VITALS REMAIN STABLE. LS CLEAR, SATS STABLE ON RA. ABDOMEN SOFT AND DISTENDED, LACTULOSE ADMINISTERED PER ORDER, LAST BM 03/06. SUPRAPUBIC CATHETER REMAINS INTACT AND PATENT, URINE IS LIGHT YELLOW & CLEAR. PT REMAINS ON SEIZURE PRECAUTIONS, NO SEIZURES NOTED. UP WITH 1 MIN ASSIST, SLIDEBOARD AND W/C AND TOLERATED WELL. Q1H VISUAL CHECKS. CALL LIGHT WITHIN REACH. FALL PRECAUTIONS IN PLACE
[2019-03-08 20:20] VITALS: BP 124/54
--- NOTE | 2019-03-09 02:58 | NUR ---
PATIENT ASSESSED AND IS ALERT X 2. SKIN WARM AND DRY. BED PADDED AND HAS HAD NO SEIZURES. HAS A SUPERPUBIC CATH WITH CLOUDY URINE NOTED. IS ON BEDREST. TURNED Q 2HOURS AND PRN. IS MAX ASSIST TO TURN WITH 2 STAFF ASSISTANCE. IS CONFUSED AT TIMES. SLOW TO ANSWER QUESTIONS. INCONT OF BOWEL. WILL NEED TO CHANGE SUPERPUBIC CATH ON WEDNESDAY. SMALL AMOUNT EDEMA NOTED TO LOWER EXTREMITIES.TURN Q 2 HOURS AND PRN. DENIES ANY PAIN OR SOA. ON ROOM AIR. CONT PLAN OF CARE.
[2019-03-09 10:00] VITALS: BP 109/58
--- NOTE | 2019-03-09 11:21 | NUR ---
ASSUMED CARE AT 0700. PATIENT IS ALERT AND ORIENTED X2. PATIENT IS IMPULSISVE AT TIMES. LUNGS ARE CLEAR, ABD IS SOFT WITH BSX4. PATIENT HAS SUPRAPUBIC CATHETER DRAINING SETH COLORED URINE. NO SZ THIS SHIFT. PATIENT IS UP TO W/C WITH SLIDE BOARD WITH ASSIST OF 2 STAFF. FALL AND SAFETY PROTOCOLS IN PLACE. DENIES PAIN AT THIS TIME. PATIENT HAS SOME EDEMA IN HIS LOWER EXTREMITIES. WILL CONTINUE TO MONITER.
--- NOTE | 2019-03-09 11:27 | HC ---
[facility] [place] [address] CONSULTATION Name: ZBIGNIEW COREA JR Room #: 516-1 ADM IN M.R.#: [id number] Admission: 03/03/19 Attend Phys: Lalo Reed MD Discharge: Date of : 41 Report #: [id number] THIS REPORT FOR: //name// CC: Shweta Chicas [facility] DATE OF SERVICE: 03/04/2019 MEDICAL CONSULATION ATTENDING STAFF PHYSICIAN: Dr. Reed. REASON FOR CONSULTATION: Medical management and rehabilitation unit. HISTORY OF PRESENT ILLNESS: The patient is a very pleasant 73-year-old gentleman with a known prior history of subdural hematoma with evacuation with the patricia hole and also ischemic stroke prior to that. The patient also has multiple sclerosis and is wheelchair bound at home. The patient was admitted to the [facility] Internal Medicine Service on telemetry on 02/27/2019 with new onset seizure. When patient was postictal when he arrived to the Emergency Room and a CT scan of the brain did not show any new findings. However, MRI did show a focus of seizure and some calcinosis of the vertebral artery. The patient was evaluated by Neurology and subsequently was recommended to continue Keppra for his seizure. The patient did not have any seizures during his acute hospitalizations since then and because of his bed bound status and being in hospital with a new finding and needed to work on his upper body strength in order to go home with assistance from his . Rehab consult was requested and subsequently patient is being transferred to rehabilitation floor after insurance authorization. The patient informs me this morning that he does not have any complaints, yesterday on medical floor he complained of being bored and wanted to do some therapy. Today, he is complaining of just a little bit of fatigue, but otherwise doing okay and no seizures or no complaints overnight. The patient denies any fever, chills, night sweats and/or nausea, vomiting, diarrhea or chest pain or abdominal pain. The patient does not have any shortness of breath either. PAST MEDICAL HISTORY: Significant for: 1. Alcohol use. 2. Ischemic CVA. 3. Multiple sclerosis. 4. Subdural hematoma with patricia hole evacuation. 5. Encephalomalacia. 6. Dementia. 7. [place] [address] CONSULTATION Name: ZBIGNIEW COREA Room #: 516-1 [facility] IN .R.#: [id number] Admission: 03/03/19 Attend Phys: Lalo Reed MD Discharge: Date of : 43 Report #: [id number] 8. Hypertension. CURRENT MEDICATIONS: 1. Vitamin C. 2. Aspirin. 3. Vitamin D. 4. Vitamin B12. 5. Duloxetine. 6. Finasteride. 7. Flomax. 8. Lisinopril. 9. Keppra. 10. Bisacodyl. 11. Magnesium hydroxide. 12. Senna. 13. Bisacodyl suppository p.r.n. PAST SURGICAL HISTORY: The patient has had: 1. Suprapubic catheter. 2. [place] hole. 3. Tonsillectomy. 4. Appendectomy. 5. Back surgery x 2. FAMILY HISTORY: Positive for coronary artery disease and lupus. PERSONAL AND SOCIAL HISTORY: The patient continues to have occasional alcohol and also uses marijuana and has had tobacco use when he was in his 20s and since then none. The patient wishes to be full code and his is a durable power of attorney recruiter for health in case he cannot make decisions. REVIEW OF SYSTEMS: Ten point review of system was done and was negative this morning when patient was examined. PHYSICAL EXAMINATION: VITAL SIGNS: Temperature 36.8, heart rate 84, respirations 20, blood pressure 130/70, pulse oximeter 94% on room air last night at the time of admission. This morning, blood pressure is 129/76. GENERAL: Alert and oriented to time, place and person, very pleasant 73-year-old gentleman who is in no acute distress, has good eye contact and is communicative. HEENT: Normocephalic, atraumatic. Pupils equally round, reactive to light. Conjunctivae clear. Sclerae nonicteric. Extraocular muscle movement intact. Oropharynx is clear. Mucous membranes moist. NECK: Supple, no JVD, no lymphadenopathy. HEART: S1, S2, regular. No murmur, no S3, no S4. [address] [address] CONSULTATION Name: ZBIGNIEW COREA JR Room #: 516-1 ADM IN M.R.#: [id number] Admission: 03/03/19 Attend Phys: Lalo Reed MD Discharge: Date of : 43 Report #: [id number] LUNGS: Clear to auscultation bilaterally without any crackles or wheezes. ABDOMEN: Soft, nontender, nondistended, normal active bowel sounds. No hepatosplenomegaly noted. Suprapubic catheter without any erythema noted. EXTREMITIES: No edema both lower extremities. NEUROLOGIC: Nonfocal. The patient is able to lift his both lower extremities against gravity; however, not able to lift against gravity for flexors on hip as well as at the knee, but upper extremity strength also has declined since the day of admission. NEUROLOGICAL: Otherwise nonfocal. LABORATORY AAND X-RAYS: WBC 5.3, hemoglobin 13.9, hematocrit 41.3, platelet count 118. Chemistries indicate sodium 143, potassium 3.6, chloride 109, bicarbonate 25, anion gap 9, BUN 12, creatinine 1.2, estimated GFR 59, glucose 95 and calcium 8.9. Electrocardiogram is pending at the time of dictation. ASSESSMENT AND PLAN: 1. New onset seizure disorder. 2. Atrial fibrillation with grade 1 diastolic dysfunction. 3. Hypertension. 4. Benign prostatic hypertrophy. 5. Chronic constipation. 6. History of subdural hematoma and subsequent right frontal encephalomalacia and old cerebrovascular accident. 7. The patient wishes to be full code. PLAN: 1. The patient is being admitted to rehabilitation unit for strengthening and ability to do his activities of daily living with the help of his at home. 2. We will go ahead and get a routine EKG and if patient is in atrial fibrillation, then we will leave him on anticoagulation. 3. Thrombocytopenia. The patient has had a history of alcohol use in the past, but none recently. The platelet count has been stable. We will continue to monitor and if you be to use anticoagulant then we have to monitor it more closely and stop if need arise. 4. Hypertension. Resume his home medication. 5. Benign prostatic hypertrophy. Resume finasteride and terazosin. 6. Constipation induced bowel regime on board. 7. Deep venous thrombosis prophylaxis with pneumatic compression devices as well as Lovenox daily and with the monitoring of platelets closely. 8. Gastrointestinal prophylaxis with Pepcid and plan of care was discussed with the RN taking care of the patient as well as the patient himself. <ELECTRONICALLY SIGNED> By: Aviva Dawn MD 03/09/19 1127 [id number] Aviva Dawn MD /nt
--- NOTE | 2019-03-09 13:06 | H ---
[facility] [place] [address] HISTORY AND PHYSICAL Name: ZBIGNIEW COREA JR Room #: 516-1 ADM IN .R.#: [id number] Admission: 03/03/19 Attend Phys: Lalo Reed MD Discharge: Date of : 43 Report #: [id number] THIS REPORT FOR: //name// CC: Shweta Dawn DATE OF SERVICE: 03/03/2019 HISTORY OF PRESENT ILLNESS: This is a 73-year-old gentleman who presented to the hospital after a shaking episode at home. He was seen by Neurology and found to have new onset seizure with postictal status and a functional decline. MRI of the head did not show any new infarct. He was started on Keppra and had an EEG. The patient has history of MS with premorbid wheelchair bound status. He also has history of CVA 3 years ago along with subdural hematoma with patricia hole in 2016 due to his functional decline along with some acute encephalopathy secondary to his new onset seizure. He is being admitted to inpatient rehabilitation unit for further therapies. Today, the patient denies headache or dizziness. He denies shortness of air, cough. He does have sneezing episodes at times. He denies abdominal pain or nausea. He has a suprapubic catheter that he has had for some time. He does have numbness, tingling in the bilateral lower extremities. He tells me the right leg is worse than the left. He does report chronic constipation due to his MS. He has a good appetite. PAST MEDICAL HISTORY: Right frontal hemorrhage, status post craniotomy; history of MS with spastic paraparesis; back surgery x 2; suprapubic catheter secondary to urinary retention; appendectomy; tonsillectomy; GERD; BPH; hypertension; vitamin D deficient and vitamin B12 deficient. HABITS: He is a nonsmoker, nondrinker, no illicit drug use. SOCIAL HISTORY: He lives in a house with his . He has a ramp entrance. He required setup assistance for a slide board transfer. He was able to propel himself with upper body strength and a manual wheelchair. He required mod assist for squat pivot transfer at baseline. His is his caregiver in the home setting. He was independent with feeding, but required assist when bathing and dressing. provided the IADLs. CODE STATUS: Full code. ALLERGIES: To BACLOFEN. CURRENT MEDICATIONS: Magnesium daily p.r.n., bisacodyl suppository daily p.r.n., senna daily p.r.n., Colace twice a day p.r.n., Keppra 1000 mg twice a day, finasteride 5 mg daily, terazosin 5 mg at bedtime, aspirin 81 mg daily, Rocephin 1 g daily, Tylenol 650 q.i.d. p.r.n., Zofran p.r.n. [address] [address] HISTORY AND PHYSICAL Name: ZBIGNIEW COREA JR Room #: 516-1 [facility] IN M.R.#: [id number] Admission: 03/03/19 Attend Phys: Lalo Reed MD Discharge: Date of : 43 Report #: [id number] REVIEW OF SYSTEMS: Remainder of his 14-point review of systems negative except as listed in HPI. PHYSICAL EXAMINATION: VITAL SIGNS: Blood pressure 119/70, respirations 20, pulse 82, temperature 97.3, 95% oxygen on room air. GENERAL: He is awake, alert. He is oriented to person, place and situation. He cannot state the date. He has slow verbal responses, some mild dysarthria as well. HEAD: Head is normocephalic. EYES: EOMs are intact. No icterus. ENT: No sinus tenderness, no pharyngitis. NECK: No lymphadenopathy. CARDIAC: Regular rate and rhythm, S1, S2. CHEST: Lungs are clear to auscultation bilaterally. No crackle, no wheeze. ABDOMEN: Bowel sounds are positive. Soft, nontender, nondistended. GENITOURINARY: He has a suprapubic catheter in place. SKIN: Clean, dry and intact. EXTREMITIES AND NEUROLOGIC: He has functional range of motion of the bilateral upper extremities. Tile Fitter are equal. He has no risk clonus. Upper extremity strength is grossly a 4/5. He has a limited range of motion of the bilateral lower extremities. He is unable to lift antigravity with the left leg. He was able to lift a few inches off the bed with the right leg, but not hold position. He has no pedal edema, no calf tenderness with negative Homans sign. He is transferring from bed to chair with slide board min assist. He has fair static sitting balance. Decreased tone in bilateral lower extremities. Min assist for bed mobility, min assist for upper body dressing and bathing. PSYCHIATRIC: Flat affect. LABORATORY DATA: From 03/02/2019, sodium 142, potassium 3.8, BUN 17, creatinine 1.2, mag 2.0. WBC is 5.7, hemoglobin 14.9, platelets 124. Urine culture on 03/01/2019 was negative for any growth. Blood cultures were negative. ASSESSMENT: 1. Acute metabolic encephalopathy secondary to new onset seizure. 2. New onset seizure with postictal status and functional decline. 3. 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 4. History of subdural hematoma, status post patricia hole in . 5. Chronic suprapubic catheter. 6. Hypertension. 7. Thrombocytopenia. PLAN: The patient is being admitted to acute patient rehabilitation for physical, occupational and speech therapies. I will order a cognitive [facility] [address] [place] [address] HISTORY AND PHYSICAL Name: NAHOMYZBIGNIEW Hemant Room #: 516-1 ADM IN [facility]#: [id number] Admission: 03/03/19 Attend Phys: Lalo Reed MD Discharge: Date of : 43 Report #: [id number] evaluation of the patient as he has not had one done yet. He will continue to have Neurology hospitalist and geriatric services follow the patient on the rehab unit. Social work services consulted for discharge planning needs. He will have a team conference next Wednesday. His goal will still be to return home with his 's support. Please see extensive orders. <ELECTRONICALLY SIGNED> By: ISREAL Sharp 03/09/19 1306 [id number] ISREAL Sharp /nt
[2019-03-09 19:55] VITALS: BP 160/56
--- NOTE | 2019-03-10 04:40 | NUR ---
ASSESSMENT: PT ALERT AND ORIENT TIMES TWO, SOME FORGETFULLNESS AT TIMES. BP SLIGHTLY ELEVATED EARLIER. NO SEIZURE ACTIVITY NOTED NOR REPORTED THIS SHIFT, .SUPRA-PUBIC CATH INTACT AND LEG BAG IN BR. IR WILL CHANGE OUT SUPERA PUBIC CATH TODAY. DENIES PAIN, SOB AND N/V. SLOW PROGRESS TOWARDS DC GOALS. WILL CONTINUE TO MONITOR.
[2019-03-10 07:30] VITALS: BP 126/54
--- NOTE | 2019-03-10 19:09 | NUR ---
ASSUMED CARE OF PT AT 0715. PT IS A&OX1-2 AND VITAL SIGNS ARE STABLE. PT TRANSFERED OFF UNIT TO HAVE SUPERPUBIC CATHETER CHANGED. RETURNED TO UNIT AT APPROXIMATELY 0940. PT IMPULSIVE AND FREQUENTLY WONDERS THE UNIT AND ATTEMPTS TO ENTER PT ROOMS. UNIT DOORS CLOSED WHEN PT UP IN W/C. DENIES PAIN AND PARTICIPATED IN SCHEDULED THERAPIES. SEIZURE PRECAUTIONS IN PLACE FOR HX OF SEIZURES. FALL PRECAUTIONS IN PLACE AND NURSING WILL CONTINUE TO MONITOR.
[2019-03-10 20:00] VITALS: BP 123/61
--- NOTE | 2019-03-11 00:03 | NUR ---
ASSUMED PT CARE AROUND 1900. ABLE TO ANSWER SOME ORIENTATION QUESTIONS. OTHERWISE CONFUSED. NO C/O PAIN OR SOA. PT SAT UP IN WHEELCHAIR EARLER IN THE SHIFT. TOLERATED WELL. PT RESTING QUIETLY IN BED AT THIS TIME. NO MAJOR COMPLAINTS. REPORT GIVEN TO ONCOMING NURSE AROUND 0.
--- NOTE | 2019-03-11 06:12 | NUR ---
ASSUME CARE 2300. PT STABLE AND RESTING QUIETLY. NO DISTRESS NOTED/DENIES ANY PAIN. WHEEL CHIAR BOUND WITH MODERATE ASSISTANCE TO TRANSFER PT TO BED. ASSESSMETN CHARTED. PROGRESSING WELL WITH POC. PLAN IS CONTINUE TO MONITOR FOR SEIZURES AND MONITOR FOR URINE OUTPUT. WILL CONTINUE TO FOLLO WITH POC
[2019-03-11 08:00] VITALS: BP 111/61
--- NOTE | 2019-03-11 16:05 | NUR ---
ASSUMED CARE OF PT AT 0700. VSS ON RA. ALERT AND ORIENTED X4. SLOW IN RESPONSE BUT ABLE TO FOLLOW COMMANDS AND ANSWER SIMPLE QUESTIONS. COOPERATIVE REQUESTED TO GET HIM UP TO DINNING ROOM FOR LUNCH. REASSESSMENT PER CHART. LAST BM WAS 3 DAYS AGO, DENIES CONSTIPATION. BS PRESENT. CONTINUE TO BE ON COLACE DAILY. MORNING MEDS GIVEN ORDERED. DENIES PAIN, N/V. TRANSFER WITH SLIDE BOARD WITH MIN ASSIST. ASSIST WITH TURNING. BARRIER CREAM APPLIED. ON LOWER AIR LOSS MATTRESS SUPRA PUBLIC CATH CHANGED YESTERDAY 03/10. SCHULTE CATH BAG PATENT WITH ADEQUATE YELLOW OUT PUT. NO SEIZURES OBSERVED, SEIZURE PRECAUTIONS IN PLACE. NO ACUTE DISTRESS OR DISCOMFORT NOTED. Q2 TURNS WHILE IN BED. PROGRESSING WELL TOWARDS POC GOALS. FALL PRECAUTION IN PLACE. CALL LIGHT WITHIN REACH. RESTING IN BED AT THIS MOMENT. WILL CONTINUE TO MONITOR.
[2019-03-11 19:30] VITALS: BP 111/46
--- NOTE | 2019-03-12 07:51 | NUR ---
PROGRESS PT A/O X3 SCHULTE INTACT VSS, NO SEIZURE ACTIVITY NOTED FALL PRECAUTIONS IN PLACE PT SLEPT MOST OF SHIFT DENIED PAIN OR ANY OTHER NEEDS.
[2019-03-12 08:15] VITALS: BP 110/61
--- NOTE | 2019-03-12 11:35 | NUR ---
ASSUMED CARE OF PT AT 0715. PT IS A&OX2, CONFUSED, AND IMPULSIVE, VITAL SIGNS ARE STABLE. DENIES PAIN AND PARTICIPATED IN SCHEDULED THERAPIES. SEIZURE PRECAUTIONS IN PLACE FOR HX OF SEIZURES. DOORS TO UNIT CLOSED WHEN PT UP IN W/C DUE TO FLIGHT RISK. CATHETER DRAINING APPROPRATELY, SECURED TO LEG WITH SECURING DEVICE. FALL PRECAUTIONS IN PLACE AND NURSING WILL CONTINUE TO MONITOR.
[2019-03-12 20:03] VITALS: BP 150/54
--- NOTE | 2019-03-12 22:35 | NUR ---
PT ASSESSMENT DONE AND VSS. MED GIVEN AND WELL TOLERATED. FALL PRECAUTIONS IN PLACE. SEIZURE PRECAUTIONS IN PLACE. SLEEPING. WILL CONTINUE TO MONITOR.
[2019-03-13 05:08] LABS: ABSOLUTE NEUTROPHILS 3.8 thou/uL (1.4-8.2); BASOPHILS 1.1 % (0.0-2.0); EOSINOPHILS 0.3 % (0.0-3.0); HEMATOCRIT 43.6 % (42.0-52.0); HEMOGLOBIN 14.8 gm/dL (14.0-18.0); LYMPHOCYTES 22.1 % (24.0-44.0); MCH 31.1 pg (26.0-34.0); MCV 91.6 fL (80.0-100.0); MONOCYTES 10.2 % (1.0-8.0); PLATELET COUNT 143 thou/uL (150-400); POLYS 66.3 % (36.0-66.0); RBC 4.77 mil/uL (4.50-6.00); RDW 13.7 % (10.5-14.5); WBC 5.8 thou/uL (4.0-11.0)
[2019-03-13 05:27] LABS: CREATININE 1.2 mg/dL (0.7-1.3); MAGNESIUM 2.1 mg/dL (1.8-2.4); POTASSIUM 4.1 mmol/L (3.5-5.1)
[2019-03-13 07:54] VITALS: BP 118/66
--- NOTE | 2019-03-13 11:16 | NUR ---
ASSUMED CARE OF PT AT 0715. PT IS A&OX1-2 AND CONFUSED, VITAL SIGNS ARE STABLE. PT DENIES PAIN AND PARTICIPATED IN SCHEDULED THERAPIES. SUPERPUBIC CATHETER IN PLACE, DRAINING APPROPRIATELY, SECURED TO LEG. SEIZURE PRECAUTIONS IN PLACE FOR HX OF SEIZURES. DOORS TO UNIT CLOSED WHEN PT UP IN W/C AND FREQUENT VISUAL CHECKS DUE TO FLIGHT RISK. PT MOVED TO ROOM ACROSS FROM NURSES STATION ON 03/12/19 DUE TO FLIGHT RISK, THIS NURSE WOULD RECOMMEND THAT PT REMAIN IN ROOM ACROSS FROM NURSES STATION DUE TO FLIGHT RISK AND REQUIREMENT FOR FREQUENT VISUAL CHECKS FOR SAFETY. FALL PRECAUTIONS IN PLACE AND NURSING WILL CONTINUE TO MONITOR.
--- NOTE | 2019-03-13 14:18 | NUR ---
Nutrition: pt seen per followup. Continued excellent intake of meals, 90-100% documented on heart healthy diet. Pt is confused, impulsive and a flight risk. Most recent weight down 8# from previous. Will follow trends. Prior weight gain since CVA was reported by family due to decreased activity. Continues on vitamin D, B12, vitamin C and bowel regimen. Last BM 03/12. Continue low risk.
[2019-03-13 19:34] VITALS: BP 141/66
[2019-03-13 20:30] VITALS: BP 141/66
--- NOTE | 2019-03-13 21:56 | NUR ---
PT ASSESSMENT DONE AND VSS. MED GIVEN AND WELL TOLERATED. FALL PRECAUTIONS IN PLACE. SLEEPING. WILL CONTINUE TO MONITOR.
[2019-03-14 08:30] VITALS: BP 126/54
--- NOTE | 2019-03-14 11:56 | NUR ---
ASSUMED CARE OF PT AT 0700. VSS ON RA. ALERT AND ORIENTED X2. SLOW IN RESPONSE BUT ABLE TO FOLLOW COMMANDS AND ANSWER SIMPLE QUESTIONS. COOPERATIVE, OT AND SPEECH SAID PT IS MORE SLOW AND DROWSY TODAY. NOTIFIED COLLEEN AND OBTAINED ORDER TO CHANGE CYMBALTA TO HS AND WILL MONITOR. REASSESSMENT PER CHART. DENIES CONSTIPATION. BS PRESENT. LAST BM RECORDED WAS 2 DAYS AGO. CONTINUE TO BE ON COLACE DAILY. MAY GIVE LACTULOSE LATER. MORNING MEDS GIVEN ORDERED. DENIES PAIN, N/V. TRANSFER WITH SLIDE BOARD WITH MIN ASSIST. ASSIST WITH TURNING. BARRIER CREAM APPLIED. ON LOWER AIR LOSS MATTRESS. SCHULTE CATH BAG PATENT WITH ADEQUATE YELLOW OUT PUT. NO SEIZURES OBSERVED, SEIZURE PRECAUTIONS IN PLACE. NO ACUTE DISTRESS OR DISCOMFORT NOTED. Q2 TURNS WHILE IN BED. PROGRESSING WELL TOWARDS POC GOALS. FALL PRECAUTION IN PLACE. CALL LIGHT WITHIN REACH. RESTING IN BED AT THIS MOMENT. WILL CONTINUE TO MONITOR.
--- NOTE | 2019-03-14 13:31 | NUR ---
team meeting, recommendation: increased delayed verbal response, increased sleepy. neuro re-consult. cant propel wheel chair like prior and unable to use slide board with direction. dc 03/16 or pending medical neuro, alertness, neuro follow up and function. [facility] with [facility] (pt, ot, st, nursing and bathaid).
[2019-03-14 19:27] VITALS: BP 114/58
--- NOTE | 2019-03-15 01:52 | NUR ---
ASSESSMENT: PT REMAIN ALERT AND ORIENT TIMES TWO. SEEMS A LITTLE CONFUSED TO SITUATION. INITALLY PT APPEARED TO BE UPSET ABOUT SOMETHING. WHEN ASKED DID HE NEED TO SPEAK ABOUT WHAT WAS BOTHERING HIM, HE SAID THAT HE WAS OK AND DID NOT NEED TO TALK. PT SOON FELL TO SLEEP. SUPERPUBIC CATH PATENT AND INTACT. WILL CONTINUE TO MONITIOR.
[2019-03-15 07:34] VITALS: BP 117/51
--- NOTE | 2019-03-15 07:41 | NUR ---
ASSUME PT CARE AT 0700. VSS ON RA. PT REPORTS SLEEP GOOD. HAS BRIGHT AFFECT THIS AM. DR. VILLANUEVA CAME TO SEE PT AND STOP CYMBALTA, B6 AND ADD CELEXA. NOTIFIED DR. VILLANUEVA THAT PT WILL LEAVE EITHER ON 03/16 OR 03/17. HE SAYS HE WILL STOP BY TOMORROW TO CHECK ON PT. OFFERED SUPPORTIVE CARE. ENCOURAGE PT TO VOICE HIS NEEDS. PLAN TO MOVE PT TO 506 FOR BIGGER BATHROOM. FALL PRECAUTION IN PLACE. WILL CONTINUE TO MONITOR.
--- NOTE | 2019-03-15 13:59 | NUR ---
Patient participated in community reintegration on 03/15/19 with Physical Therapy. Refer to documentation by PT.
--- NOTE | 2019-03-15 16:39 | NUR ---
discuss with anmol vaca and she feel comfortable with dc home on the 4th, [facility] is still able to accept hh needs.
[2019-03-15 19:30] VITALS: BP 123/58
--- NOTE | 2019-03-16 02:36 | NUR ---
ASSUMED CARE FROM DAY SHIFT PT UP IN WHEELCHAIR IN DAY AREA, NO CONCERNS VOICED, VISITING WITH FAMILY FRIEND. ASSISTED TO BE WITH SLIDE BOARD TOLERATED WELL WITH MIN ASSIST. PT HAD LARGE SOFT STOOL DURING SHOWER MAID , RESTING WELL THROUGOUT HOURLY ROUNDS.
[2019-03-16 08:00] VITALS: BP 132/61
--- NOTE | 2019-03-16 11:04 | PLAN ---
[facility] [place] [address] REHAB UNIT PLAN OF CARE Name: ZBIGNIEW COREA Room #: 506-1 ADM IN M.R.#: [id number] Admission: 03/03/19 Attend Phys: Lalo Reed MD Discharge: Date of : 41 Report #: [id number] THIS REPORT FOR: //name// CC: Shweta Dawn DATE OF SERVICE: 03/06/2019 PROGRESS NOTE/OVERALL PLAN OF CARE: SUBJECTIVE: The patient was seen back today in followup. He is in no distress. Last recorded temperature 36.3, pulse 69, respirations 20, blood pressure 140/60. The patient is alert. He follows basic commands. No calf swelling. Transfers have been min assist, bed to wheelchair utilizing the sliding board. He has not ambulated. In occupational therapy, lower body dressing is dependent, upper body is min assist. In speech therapy, he has severe cognitive deficits, moderate to severe expressive deficits. ASSESSMENT: 1. Toxic metabolic encephalopathy. 2. New onset seizure with postictal status and functional decline. 3. 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 4. History of subdural hematoma, status post patricia hole. 5. Chronic suprapubic catheter. 6. Hypertension. 7. Thrombocytopenia. PLAN: The overall plan of care is based on the preadmission screen, post-admission physician evaluation and information garnered from therapy assessments. 1. Estimated length of stay is probably at least 10 days to 2 weeks, potentially longer if warranted. 2. Medical prognosis is reasonably good. 3. Anticipated interventions includes the interdisciplinary acute inpatient rehabilitation program. 4. Anticipated functional outcomes would be for the patient to become modified independent with transfers, mobility and ADLs, so that he can hopefully return back to his prior living situation. 5. Discharge destination would be back to the home setting where he lives with his . 6. Expected therapy by discipline includes PT and OT and speech 1 hour per day [address] [address] REHAB UNIT PLAN OF CARE Name: ZBIGNIEW COREA Room #: 506-1 [facility] IN .R.#: [id number] Admission: 03/03/19 Attend Phys: Lalo Reed MD Discharge: Date of : 41 Report #: [id number] each five days a week throughout the duration of the acute inpatient rehabilitation stay. <ELECTRONICALLY SIGNED> By: Lalo Reed MD 03/16/19 1104 [id number] Lalo Reed MD /[facility]
--- NOTE | 2019-03-16 11:04 | H ---
[facility] [place] [address] HISTORY AND PHYSICAL Name: ZBIGNIEW COREA JR Room #: 506-1 ADM IN M.R.#: [id number] Admission: 03/03/19 Attend Phys: Lalo Reed MD Discharge: Date of : 41 Report #: [id number] THIS REPORT FOR: //name// CC: Shweta Dawn DATE OF SERVICE: 03/03/2019 POST-ADMISSION PHYSICIAN EVALUATION HISTORY OF PRESENT ILLNESS: Please see my prior consultation, which was dictated as well as the history and physical from yesterday. Agree with the examination findings as noted. The patient did have some confusion overnight. He has been admitted to the acute inpatient rehabilitation cardona. He was in no distress. PHYSICAL EXAMINATION: VITAL SIGNS: Stable. HEENT: Benign. CHEST: Sounded clear to auscultation. CARDIOVASCULAR: Regular rate and rhythm. ABDOMEN: Bowel sounds positive, nontender. GENITOURINARY: He has the suprapubic tube in place. The patient was seen earlier. He has been involved in therapies, working on trying to maximize his functional independence. ASSESSMENT: 1. Acute metabolic encephalopathy, multifactorial with new onset seizure. 2. New onset seizure with postictal status and functional decline. 3. 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 Lower extremity strength is really only a grade 3/5 to maybe 3+. 4. History of subdural hematoma, status post patricia hole in 2016. 5. Chronic suprapubic catheter. 6. Hypertension. 7. Thrombocytopenia. PLAN: The patient has been admitted for acute in-hospital inpatient rehabilitation. From a postadmission physician evaluation perspective, there are no relevant changes since the preadmission screening. Please see the review of prior and current medical and functional conditions and comorbidities. Please see the previous and current functional status. As far as risk of complications, the patient has multiple medical comorbidities as noted above. The initial plan of care involves the interdisciplinary acute inpatient rehabilitation program with the goal of maximizing his functional independence, he can hopefully return back to his prior living situation. [address] [address] HISTORY AND PHYSICAL Name: ZBIGNIEW COREA Room #: 506-1 ADM IN [facility].#: [id number] Admission: 03/03/19 Attend Phys: Lalo Reed MD Discharge: Date of : 43 Report #: [id number] functional goals would be for the patient to become modified independent with transfers, mobility and ADLs as well as cognition to try to be able to return back to the home setting. He did require some assistance at a mod assist for squat pivot transfers premorbidly. has been his caregiver. The prognosis is reasonably good with estimated length of stay probably at least 2-3 weeks. Potential barriers would include his multiple medical comorbidities and decreased functional status. The patient meets diagnostic criteria for an acute in-hospital inpatient rehabilitation stay. He meets the diagnostic criteria and the medical necessity criteria and we will have the process improvement consultant physicians continue to follow. He does have the tolerance for therapies and does have appropriate discharge goals back to the home setting. <ELECTRONICALLY SIGNED> By: Lalo Reed MD 03/16/19 1104 [id number] Lalo Reed MD /nt
--- NOTE | 2019-03-16 12:51 | NUR ---
ASSUMED CARE OF PT AT 0715. PT IS A&OX2, FORGETFUL AND CONFUSED, AND VITAL SIGNS ARE STABLE. FREQUENT VISUAL CHECKS BY STAFF DUE TO FLIGHT RISK WHEN OOB IN W/C. SUPERPUBIC CATHETER IN PLACE, DRAINING APPROPRIATELY. PLANS FOR D/C TOMORROW, EXPRESSED CONCERN THAT SHE WILL BE UNABLE TO GET PRESCRIPTIONS TOMORROW DUE TO BEING UNABLE TO GET PRESCRIPTIONS. PHARMACY INFORMATION UPDATED IN SYSTEM AND WOULD LIKE TO HAVE SCRIPTS SENT TO PHARMACY SOON POSSIBLE IN AM AND WILL PLAN TO ANATOMY TEACHER PRIOR TO PICKING UP PT FOR D/C. FALL PRECAUTIONS IN PLACE AND NURSING WILL CONTINUE TO MONITOR.
[2019-03-16 20:30] VITALS: BP 129/61
--- NOTE | 2019-03-17 07:16 | NUR ---
progress pt a/o x2 forgetful and impulsive at times. wheels self up and down al in wc without difficulty. with gb walker and 1 to 2 assist. supra pubic catheter intact draining clear yellow urine. skin warm dry and intact. vss. plan to dc home with family care today.
[2019-03-17] MEDS ORDERED: PEPCID20 MG PO (07:49)
[2019-03-17] MEDS ORDERED: COLACE100 MG PO (07:49)
[2019-03-17] MEDS ORDERED: LISINOPRIL10 MG PO (07:49)
[2019-03-17] MEDS ORDERED: VITAMIN B-6100 MG PO (07:49)
[2019-03-17] MEDS ORDERED: KEPPRA1000 MG PO ×2 (07:49→12:56)
[2019-03-17 09:46] VITALS: BP 121/57
--- NOTE | 2019-03-17 10:12 | NUR ---
ASSUMED CARE OF PT AT 0715. REPORTS SLEPT GOOD. PT IS A&OX2, FORGETFUL AND CONFUSED, AND VITAL SIGNS ARE STABLE. ATE BREAKFAST 100%, MORNING MEDS GIVEN. RESSESSMENT PER CHART. SKIN INTACT. UP TO WC WITH SLIDEBOARD. FREQUENT VISUAL CHECKS BY STAFF DUE TO FLIGHT RISK WHEN OOB IN W/C. SUPERPUBIC CATHETER IN PLACE, DRAINING APPROPRIATELY. HAD 350CC YELLOW URINE. PLANS FOR D/C TODAY. CORTNEY MACIAS WILL SEND DISCHARGE MEDS TO PT'S PHARMACY. FALL PRECAUTIONS IN PLACE, CALL LIGHT WITHIN REACH. PT IS UP TO WC SITTING WATCHING TV. NURSING WILL CONTINUE TO MONITOR.
[2019-03-17 12:08] VITALS: BP 121/57
--- NOTE | 2019-03-17 12:14 | NUR ---
jerome left message with pt anmol vaca to see when she going to pick him up for dc home today with [facility]. jerome passed on information to bedside nurse to follow up on dc time.
[2019-03-17] MEDS ORDERED: CELEXA20 MG PO ×2 (12:25→12:56)
[2019-03-17] MEDS ORDERED: ASPIRIN325 PO (12:53)
--- NOTE | 2019-03-17 14:00 | NUR ---
DISCHARGE ORDERS COMPLETED. PATIENT DISCHARING TO HOME WITH [facility]. DISCHARGE ORDERS AND DISCHARGE SUMMARY FAXED TO [facility]IA[facility]. CALL PLACED TO GRANT TO NOTIFY. GRANT TO FACILITATE PATIENTS HH NEEDS.
[2019-04-16] MEDS ORDERED: FLOMAX0.4 MG PO (18:22)
== END 2019-03-17 17:43 | disposition home health service (06) | DRG 72 ==
PROVIDERS: Nurse Practitioner; Nurse Practitioner Family; ADMIT Physical Medicine & Rehabilitation
DX: G93.41 Metabolic encephalopathy (principal); G40.909 Epilepsy, unspecified, not intractable, without status epilepticus; G35 Multiple sclerosis; G82.20 Paraplegia, unspecified; I10 Essential (primary) hypertension; D69.6 Thrombocytopenia, unspecified; K59.09 Other constipation; F03.90 Unspecified dementia, unspecified severity, without behavioral disturbance, psychotic disturbance, mood disturbance, and anxiety; N40.0 Benign prostatic hyperplasia without lower urinary tract symptoms; G93.89 Other specified disorders of brain; K21.9 Gastro-esophageal reflux disease without esophagitis; I48.91 Unspecified atrial fibrillation; F32.9 Major depressive disorder, single episode, unspecified; R41.0 Disorientation, unspecified; E53.8 Deficiency of other specified B group vitamins; E55.9 Vitamin D deficiency, unspecified; Z99.3 Dependence on wheelchair; Z86.73 Personal history of transient ischemic attack (TIA), and cerebral infarction without residual deficits; Z90.49 Acquired absence of other specified parts of digestive tract; Z88.8 Allergy status to other drugs, medicaments and biological substances; Z82.49 Family history of ischemic heart disease and other diseases of the circulatory system
CPT/HCPCS: 10112; 55322

== ENCOUNTER 2020-10-19 13:12 | Inpatient (IN) | payer OTHER, BC ==
[~2020-10-19] VITALS: Ht 188 cm; Wt 97.2 kg
--- NOTE | ~2020-10-19 | EMS ---
[address] [address] EMS Patient Care Report Name: ZBIGNIEW COREA JR Room #: 202-P ADM IN M.R.#: [id number] Admission: 10/19/20 Attend Phys: Jesu Reid MD Discharge: Date of : 43 Report #: [id number] THIS REPORT FOR: //name// Report Transmitted: 10/20/2020 07:03 EMS Care Summary [facility] MED-ACT Incident [id number] @ 10/19/2020 12:30 Incident Location [address] [place] [address] Patient ZBIGNIEW COREA Male, 75 Years 1945 Patient Address [address] [place] [address] Patient History Hypertension (HTN),Stroke/CVA, Patient Allergies Other drug allergy, Patient Medications Citalopram, Lisinopril, Cholecalciferol, Keppra, Chief Complaint Pt feels very weak Disposition Transported No Lights/[place] Dispatch Reason Sick Person Transported To [facility] Narrative [id number] was called for a 75y/o male that is weaker than normal. On EMS arrival pt is laying on bed showing no signs of distress. Pt is warm, pink and dry, GCS 14 and ABC's intact. According to pt's pt has been weaker and acting "off" since yesterday afternoon. Pt's states that pt can normally hold a [address] [address] EMS Patient Care Report Name: ZBIGNIEW COREA JR Room #: 202-P ADM IN M.R.#: [id number] Admission: 10/19/20 Attend Phys: Jesu Reid MD Discharge: Date of : 43 Report #: [id number] conversation and knows what year it is but is only answering yes and no to most things with her. Pt is also unable to tell EMS what year it is. Pt answers all other questions from EMS appropriatly. Pt had a stroke 4 years ago which left him unable to walk. Pt's said that pt can normally sit up and do things by himself but is too weak now. Pt has a superpubic catheter according to and states that he does get UTI's frequetly. Pt tells EMS he feels tired and weak. Pt denies SOB, Chest pain, lightheadedness, nausea, vomiting and headache. Pt is sheet lifted to cot and secured via department policy then moved to unit. Physical exam showed no signs of trauma and found no abnormalities. EKG, Stoke scale (negative), IV assess attempted, BG(104) 12 lead (NSR) and normal v/s. Biocom to [facility]. Pt is sheet lifted to ER bed 7 and report is given to RN. Initial Vitals @13:03P: 80,SpO2: 96, @12:51P: 82,SpO2: 97, @12:49P: 81,BP: 126/69,SpO2: 95, @12:53P: 79,SpO2: 98, @13:07P: 80,BP: 105/59,SpO2: 95, @12:39P: 84,R: 16,BP: 124/67,Pain: 0/10,Temp: 98.4F,Glucose: 104,SpO2: 94, Assessments @12:54MENTAL:Person Oriented,Place Oriented,Event Oriented,SKIN:HEENT:Head/Face: No Abnormalities,Neck/Airway: No Abnormalities,LUNG SOUNDS:General: No Abnormalities,Left Upper: No Abnormalities,Right Upper: No Abnormalities,Left Lower: No Abnormalities,Right Lower: No Abnormalities,ABDOMEN:General: No Abnormalities,Left Upper: No Abnormalities,Right Upper: No Abnormalities,Left Lower: No Abnormalities,Right Lower: No Abnormalities,PELVIS//GI:No Abnormalities,EXTREMITIES:Left Arm: No Abnormalities,Right Arm: No Abnormalities,Left Leg: No Abnormalities,Right Leg: No Abnormalities,PULSE:NEURO:No Abnormalities, Impression Generalized Weakness Procedures @13:01Surgical Mask on PatientResponse: Unchanged@13:01Saline Lock 10cc (20 ga) Site: Hand-RightResponse: UnchangedFailed@12:5312-Lead ECGResponse: Unchanged Timeline 12:29,Call Received 12:29,Psap Call 12:30,Dispatched 12:31,En Route 12:37,On Scene 12:38,At Patient [address] [address] EMS Patient Care Report Name: ZBIGNIEW COREA JR Room #: 202-P [facility] IN M.R.#: [id number] Admission: 10/19/20 Attend Phys: Jesu Reid MD Discharge: Date of : 43 Report #: [id number] 12:39,BP: 124/67 M,PULSE: 84,RR: 16 R,SPO2: 94 Ox,ETCO2: ,B,PAIN: 0,GCS: , 12:49,BP: 126/69 M,PULSE: 81,RR: R,SPO2: 95 Ox,ETCO2: ,BG: ,PAIN: ,GCS: , 12:51,BP: / M,PULSE: 82,RR: R,SPO2: 97 Ox,ETCO2: ,BG: ,PAIN: ,GCS: , 12:53,12-Lead ECG,Response: Unchanged 12:53,BP: / M,PULSE: 79,RR: R,SPO2: 98 Ox,ETCO2: ,BG: ,PAIN: ,GCS: , 12:55,Depart Scene 13:01,Surgical Mask on Patient,Response: Unchanged 13:01,Saline Lock 10cc 20 ga Site: Hand-Right,Response: UnchangedFailed, 13:03,BP: / M,PULSE: 80,RR: R,SPO2: 96 Ox,ETCO2: ,BG: ,PAIN: ,GCS: , 13:07,BP: 105/59 M,PULSE: 80,RR: R,SPO2: 95 Ox,ETCO2: ,BG: ,PAIN: ,GCS: , 13:09,At Destination 13:21,Call Closed Disclaimer v1.1 Copyright 2020 [employer] This EMS Care Summary contains data elements from the applicable legal record (which may be displayed differently). It is designed to provide pertinent information for the following purposes: continuity of care, clinical quality, and state data reporting. The complete legal record is available to ED staff and administrators of the receiving hospital in [employer] Patient Tracker. All data is provided "as is."
[~2020-10-19 13:12] MED LIST changes: +ADULT LOW DOSE81 MG PO; +CELEXA20 MG PO; +COLACE100 MG PO; +FINASTERIDE5 MG PO; +KEPPRA1000 MG PO; +PEPCID20 MG PO; +TERAZOSIN HCL5 MG PO; +VITAMIN B-6100 MG PO
[2020-10-19 13:15] VITALS: BP 114/58
[2020-10-19 13:52] LABS: ABSOLUTE NEUTROPHILS 14.7 thou/uL (1.4-8.2); BASOPHILS 0.4 % (0.0-2.0); EOSINOPHILS 0.1 % (0.0-3.0); HEMATOCRIT 47.5 % (42.0-52.0); HEMOGLOBIN 16.5 gm/dL (14.0-18.0); LYMPHOCYTES 6.3 % (24.0-44.0); MCH 30.9 pg (26.0-34.0); MCHC 34.7 g/dL (28.0-37.0); MCV 89.2 fL (80.0-100.0); MONOCYTES 7.6 % (1.0-8.0); PLATELET COUNT 131 thou/uL (150-400); POLYS 85.6 % (36.0-66.0); RBC 5.33 mil/uL (4.50-6.00); RDW 14.6 % (10.5-14.5); WBC 17.2 thou/uL (4.0-11.0)
[2020-10-19 13:56] LABS: CALCIUM 9.2 mg/dL (8.5-10.1); CREATININE 1.7 mg/dL (0.7-1.3); POTASSIUM 4.1 mmol/L (3.5-5.1)
[2020-10-19 14:02] LABS: ALBUMIN 3.5 g/dL (3.4-5.0); DIRECT BILIRUBIN 0.3 mg/dL (<0.1-0.2); TOTAL BILIRUBIN 1.9 mg/dL (0.2-1.0); TOTAL PROTEIN 7.5 g/dL (6.4-8.2)
[2020-10-19] MEDS ORDERED: KEPPRA 500 MG500 MG PO (14:16)
[2020-10-19 14:18] LABS: URINE BILIRUBIN NEGATIVE (Negative); URINE BLOOD 3+ (Negative); URINE COLOR YELLOW; URINE GLUCOSE-RANDOM* NEGATIVE (Negative); URINE KETONES NEGATIVE (Negative); URINE PROTEIN (DIPSTICK) 1+ (Negative)
[2020-10-19 14:21] LABS: URINE CLARITY HAZY; URINE LEUKOCYTES-REFLEX 3+ (Negative); URINE NITRITE-REFLEX POSITIVE (Negative)
[2020-10-19 14:26] LABS: BACTERIA-REFLEX >30 Many /HPF (None Seen); CASTS None Seen /LPF (None Seen); CRYSTALS None Seen /LPF (None Seen); SQUAMOUS None Seen /LPF (0-3); URINE WBC-REFLEX >25 Many /HPF (0-5)
[2020-10-19 15:02] VITALS: BP 108/52
[2020-10-19 16:06] VITALS: BP 118/62
[2020-10-19 16:17] VITALS: BP 117/57
--- NOTE | 2020-10-19 18:42 | NUR ---
PT IS AXOX2-3, STATE WHO HE IS AND THAT HE IS IN A HOSPITAL, BUT HE DOES NOT KNOW THE DAY/DATE, AND COULD NOT STATE WHY HE WAS IN THE HOSPITAL. PT AT THE BEDSIDE. VSS, AFEBRILE, SR ON THE MONITOR. ADMISSION COMPLETED. PT AMS IMPROVED SINCE BEING RECEIVED FROM THE ER. PT HAS SUPRAPUBIC CATHETER THAT HX OF CAUSING UTI. PT STATES THAT CATH IS CHANGED Q20D VS Q30D; CHANGED LEG BAG TO SCHULTE BAG. CASE MGMT CONSULTED FOR ADDITIONAL NEEDS. FALL PRECAUTIONS IN PLACE. NO CONCERNS AT THIS TIME.
[2020-10-19 18:53] VITALS: BP 131/63
[2020-10-20 04:06] VITALS: BP 128/58
[2020-10-20 05:30] LABS: CALCIUM 8.5 mg/dL (8.5-10.1); CREATININE 1.5 mg/dL (0.7-1.3); MAGNESIUM 1.9 mg/dL (1.8-2.4); POTASSIUM 3.8 mmol/L (3.5-5.1)
[2020-10-20 05:35] LABS: ABSOLUTE NEUTROPHILS 10.3 thou/uL (1.4-8.2); BASOPHILS 0.3 % (0.0-2.0); EOSINOPHILS 0.1 % (0.0-3.0); HEMATOCRIT 42.6 % (42.0-52.0); LYMPHOCYTES 10.4 % (24.0-44.0); MCH 30.6 pg (26.0-34.0); MCHC 33.6 g/dL (28.0-37.0); MCV 90.9 fL (80.0-100.0); MONOCYTES 6.3 % (1.0-8.0); PLATELET COUNT 120 thou/uL (150-400); POLYS 82.9 % (36.0-66.0); RBC 4.69 mil/uL (4.50-6.00); RDW 14.5 % (10.5-14.5); WBC 12.4 thou/uL (4.0-11.0)
[2020-10-20 05:36] LABS: HEMOGLOBIN 14.3 gm/dL (14.0-18.0)
--- NOTE | 2020-10-20 06:37 | NUR ---
ASSUMED CARE AT 1900. PT DENIED PAIN, NAUSEA, OR SOB. HAD SWELLING AT RIGHT FA WHERE IV WAS LOCATED, PT DENIED PAIN AT SITE, BUT REMOVED THAT IV AND PLACED A NEW IV IN THE LEFT HAND. SR ON TELE, HR 80-90. NO OTHER CONCERNS, WILL CONTINUE TO MONITOR.
[2020-10-20 07:08] VITALS: BP 114/62
--- NOTE | 2020-10-20 10:36 | NUR ---
PT IS AXOX3-4, DELAYED ANSWERING WHEN ASKED DATE, LOCATION, SITUATION. VSS, AFEBRILE, SR ON MONITOR. PT WEARING PREFO BOOTS, BUT REMOVES THEM. DR CERNA CONSULTED. CONTINUE TO MONITOR PT MENTATION WITH ASSESSMENT. POC IS CONTINUED ABX THERAPY FOR UTI. PT HAS HX OF MS, SEZURES; FALL PRECAUTIONS IN PLACE. NO CONCERNS AT THIS TIME.
[2020-10-20 11:11] VITALS: BP 117/54
[2020-10-20 15:00] VITALS: BP 122/58
[2020-10-20 19:09] VITALS: BP 152/75
[2020-10-21 04:00] VITALS: BP 129/60
[2020-10-21 04:19] LABS: HEMATOCRIT 42.3 % (42.0-52.0); HEMOGLOBIN 14.3 gm/dL (14.0-18.0); MCH 30.4 pg (26.0-34.0); MCHC 33.9 g/dL (28.0-37.0); MCV 89.8 fL (80.0-100.0); RBC 4.7 mil/uL (4.50-6.00); RDW 14.7 % (10.5-14.5); WBC 6.5 thou/uL (4.0-11.0)
[2020-10-21 04:31] LABS: CALCIUM 8.2 mg/dL (8.5-10.1); CREATININE 1.3 mg/dL (0.7-1.3); MAGNESIUM 1.9 mg/dL (1.8-2.4); POTASSIUM 3.8 mmol/L (3.5-5.1)
--- NOTE | 2020-10-21 06:22 | NUR ---
SLEPT MOST OF SHIFT. ASSIST TO TURN NEEDED. WORKING ON GOALS AND PLAN OF CARE. REMAINS ORIENTED TO SELF AND HOSPITAL STAY. CONTINUE TO ASSES.
[2020-10-21 08:42] VITALS: BP 127/62
[2020-10-21 11:48] VITALS: BP 149/74
--- NOTE | 2020-10-21 13:45 | NUR ---
patient admits with UTI/Sepsis. Patient has MS. He resides at home with who is caregiver. Patient answered questions appropriately and gave permission to sp with . Sp with via phone. Patient has ramp, shower chair, sliding board, wc and sliding board. Patient able to assist with transfers. Patient has catheter, [facility] comes every 21 days to change. Next Wednesday will be time for it to be changed. reports she is primary caregiver. She reports has been to skilled in past and not a good experience. Acute rehab in past [facility] and [facility]. reports since she is primary caregiver she wants to be assured she can provide same level of care at home. She is agreeable to 5N eval. Sp with [facility] liason to alert of eval.
[2020-10-21 15:52] VITALS: BP 145/83
--- NOTE | 2020-10-21 18:28 | NUR ---
ORIENTED TO SELF. SR PER TELE. DENIES CINTHIA BRADLEY. PT, OT, ST FOLLOWING. FALL PRECAUTIONS IN PLACE.
[2020-10-21 20:00] VITALS: BP 147/70
--- NOTE | 2020-10-22 03:20 | NUR ---
Pt. watched TV till MN the finally went to sleep. He has been repositioned. Remains confused and only oriented to person and place. Bed alarm on and SCD's in place.
[2020-10-22 04:45] VITALS: BP 178/88
[2020-10-22 05:00] VITALS: BP 164/85
[2020-10-22 09:16] VITALS: BP 132/73
[2020-10-22 12:32] VITALS: BP 120/40
--- NOTE | 2020-10-22 12:56 | NUR ---
AWAKE. CALM. DENIES CP AND SOA. 5N EVAL, POSSIBLE DISCHARGE TO SAME. FALL PRECAUTIONS REMAIN IN PLACE. SR PER TELE WITH PVC'S.
--- NOTE | 2020-10-22 14:20 | NUR ---
Patient accepted to 5N tenative dc in [place] Hannah 5N RN practioner sp with and reviewed 5n.
[2020-10-22 20:15] VITALS: BP 149/76
[2020-10-23 04:45] VITALS: BP 153/79
--- NOTE | 2020-10-23 06:46 | NUR ---
PATIENTS CARS WERE ASSUMED AT SHIFT CHANGE. PATIENT WAS ASSESSED AND MEDS WERE PASSED. PATIENT WAS ABLE TO SLEEP MOST OF THIS SHIFT. HE HAS PROGRESSED TO A TRANSFER TO REHAB THIS MORNING. THIS WILL TAKE PLACE ON THE DAY SHIFT. ROUNDS WERE DONE. BED IS IN A LOW AND LOCKED POSITION. THE BED ALARM IS ON.
[2020-10-23 08:20] VITALS: BP 144/67
--- NOTE | 2020-10-23 08:25 | NUR ---
BPCI letter and preferred provider list provided to patient, lives in home setting
[2020-10-23] MEDS ORDERED: LEVOFLOXACIN500 MG PO (09:10)
--- NOTE | 2020-10-23 10:48 | NUR ---
Patient accepted to 5N. Rehab liason sp with yesterday to discuss unit and expectations. Updated planned dc today to room 506.She is in agreement with plan.
[2020-10-23 11:00] VITALS: BP 136/58
[2020-10-23] MEDS ORDERED: LISINOPRIL10 MG PO (18:36)
== END 2020-10-23 13:43 | DRG 871 ==
LOC: ER 13:12 → 2N 15:02 → EROBS 15:02 → 2N 16:10
PROVIDERS: Nurse Practitioner; ADMIT Internal Medicine; ATTEND Internal Medicine
DX: A41.9 Sepsis, unspecified organism (principal); N17.0 Acute kidney failure with tubular necrosis; G92 Toxic encephalopathy; N39.0 Urinary tract infection, site not specified; G82.20 Paraplegia, unspecified; G35 Multiple sclerosis; Z20.822 Contact with and (suspected) exposure to COVID-19; N31.9 Neuromuscular dysfunction of bladder, unspecified; N18.9 Chronic kidney disease, unspecified; G40.909 Epilepsy, unspecified, not intractable, without status epilepticus; R13.10 Dysphagia, unspecified; I12.9 Hypertensive chronic kidney disease with stage 1 through stage 4 chronic kidney disease, or unspecified chronic kidney disease; B96.5 Pseudomonas (aeruginosa) (mallei) (pseudomallei) as the cause of diseases classified elsewhere; R25.2 Cramp and spasm; Z90.49 Acquired absence of other specified parts of digestive tract; Z88.8 Allergy status to other drugs, medicaments and biological substances
CPT/HCPCS: 10081

== ENCOUNTER 2020-10-22 11:43 | Inpatient (IN) | payer OTHER, BC ==
[~2020-10-22] VITALS: Ht 188 cm; Wt 99.0 kg
--- NOTE | ~2020-10-22 | HC ---
[facility] [place] [address] CONSULTATION Name: ZBIGNIEW COREA JR Room #: 506-1 [facility] IN M.R.#: [id number] Admission: 10/23/20 Attend Phys: Lalo Reed MD Discharge: 11/04/20 Date of : 43 Report #: [id number] THIS REPORT FOR: cc: Shweta Shanks MD, Jennifer L MD Deutch, Neal B. PhD ~ DOC #: [id number] Jimi Joyner, PhD DATE OF SERVICE: 11/03/2020 NEUROBEHAVIORAL STATUS EXAM ATTENDING PHYSICIAN: Dr. Lalo Reed. TRADE FACILITATOR: Jimi Joyner, PhD CLINICAL PRESENTATION: The patient is a 75-year-old male admitted to the rehabilitation unit at [facility] for a comprehensive inpatient rehabilitation program. His admitting diagnosis was primarily encephalopathy and multiple sclerosis after an acute hospital stay for UTI and sepsis. His medical problem list included altered mental status, CVA, acute encephalopathy, history of CVA, multiple sclerosis, seizure, sepsis, unresponsiveness and a UTI. A complete description of his medical condition and history along with medications can be found in his medical record. Neuropsychological consultation was requested to provide assistance in the assessment of cognitive and emotional status and to provide recommendations and services. Prior to this admission, he was living with the assistance of his in their home. The patient is a college graduate with two children. His had been managing medications and assisting him in the management of suprapubic catheter. TECHNIQUES UTILIZED: Clinical interview, review of medical records, staff consultation and behavioral observation, mini mental status exam 2 standard version and clock drawing. EXAMINATION FINDINGS: The patient was alert and cooperative with the assessment. He does not present with an aphasia. There is no report of auditory or visual hallucinations. There is no suicidal ideation. He had severely impaired eye contact with a left field gaze preference. His performance on the MMSE 2 brief version was extremely low with a raw score 7/16. Performance on the MMSE 2 standard version was extremely low with a raw score of 15/30. The patient was unable to copy a simple geometric design. Clock drawing was extremely low. He was unable to accurately place the hands at the clock with severe left neglect noted. [address] [address] CONSULTATION Name: ZBIGNIEW COREA Hemant Room #: 506-1 [facility] IN [facility]#: [id number] Admission: 10/23/20 Attend Phys: Lalo Reed MD Discharge: 11/04/20 Date of : 43 Report #: [id number] The patient is presenting with severe deficits in neurocognitive functioning. Impairment with sustained attention and concentration, immediate recall and executive functioning along with visual spatial construction is noted. DIAGNOSTIC IMPRESSION: Major neurocognitive disorder (dementia), unspecified, without behavior disorder -- moderate to severe. RECOMMENDATIONS: The patient will require assistance in the management of medication, finances and nutrition. Help will be necessary for him to maintain safety within the home. Treatment program for neurocognitive disorder including medications to support cognition will be of benefit. Frequent orientation and encouragement to engage in activities in which he is still capable. Thank you very much for allowing me to provide consultation on this patient. Jimi Joyner, PhD NBD/KDA By: [id number] Jimi Joyner, PhD /nt
[~2020-10-22 11:43] MED LIST changes: +KEPPRA 500 MG500 MG PO
[2020-10-23] MEDS ORDERED: LEVOFLOXACIN500 MG PO (09:10)
--- NOTE | 2020-10-23 14:17 | NUR ---
WOUND CONSULT; THE ASSESSMENT TODAY REVEALED NO WOUNDS. MILD ERYTHEMA WAS SEEN TO THE BUTTOCKS/SACRUM WHICH BLANCHES. THE PATIENT HAS A SUPERPUBIC CATHETER IN PLACE AND IS DUE TO BE REPLACED. RECOMMENDATIONS; APPLY BARRIER CREAM TO THE BUTTOCKS/SACRUM DAILY/PRN RN PRESENT.
--- NOTE | 2020-10-23 17:22 | NUR ---
RECEIVED PATIENT AT 1345 TODAY FROM 2N. PT A/O X 2-3. ANSWERS MOST QUESTIONS APPROPRIATELY. ORIENTED TO ROOM AND CONSENTS SIGNED AND ON CHART. UPDATED ON POC. VSS UPON ARRIVAL. ASSESSMENT PER CHART. WILL CONT TO MONITOR AND FOLLOW POC.
[2020-10-23] MEDS ORDERED: LISINOPRIL10 MG PO (18:36)
[2020-10-23 19:42] VITALS: BP 132/73
--- NOTE | 2020-10-24 01:19 | NUR ---
PT ASSESSMENT COMPLETED AND VSS. MEDS GIVEN ORDERED AND WELL TOLERATED. FALL PRECAUTIONS IN PLACE. SUPRAPUBIC CATH DRAINING MODERATE AMOUNT OF DARK YELLOW URINE. ASST WITH REPOSITION FOR COMFORT. 0 WOUND NOTED ON BOTTOM AFTER CHECKING. SLEEPING WELL. WILL CONTINUE TO MONITOR FREUQENTLY.
[2020-10-24 05:50] LABS: HEMATOCRIT 42.4 % (42.0-52.0); HEMOGLOBIN 14.4 gm/dL (14.0-18.0); MCH 30.2 pg (26.0-34.0); MCHC 33.9 g/dL (28.0-37.0); MCV 89.1 fL (80.0-100.0); RBC 4.76 mil/uL (4.50-6.00); RDW 14.1 % (10.5-14.5)
[2020-10-24 05:55] LABS: CALCIUM 8.5 mg/dL (8.5-10.1); CREATININE 1.2 mg/dL (0.7-1.3); POTASSIUM 3.6 mmol/L (3.5-5.1)
--- NOTE | 2020-10-24 08:18 | NUR ---
RD consult received for poor intake. Has been admitted to rehab unit. Hx MS, CVA. ST has followed and diet progression to regular and pt has been eating 100% of all meals. Wts 207-218 lb past week. On B6, B12, vitamin C, vitamin D. No wounds. Assess as low nutrition risk
--- NOTE | 2020-10-24 08:46 | NUR ---
chart review. new to acute rehab yesterday afternoon. unable to visit with him therapy and breakfast. he is lives at home with his . she is his director of primary care at home. has dme, ramp, wheel chair, slide boar and shower chair. has catheter that is changed q 21 days. been to skilled in past and has hh. needs him to be back to baseline in order to cont to care for him at home. will cont following as needed for dc needs.
--- NOTE | 2020-10-24 15:10 | NUR ---
CONSULT [id number] WAS COMPLETED . THIS FISHING GEAR MECHANIC NOTIFIED OUR [employer] DEVELOPER THE STONEMASON WENT TO SEE THE PATIENT.
--- NOTE | 2020-10-24 15:14 | NUR ---
ADV. DIR. CONSULT [id number] COULD NOT BE COMLETED THIS DAY. THE PATIENT WAS BEING TAKEN OUT OF THE ROOM FOR PHYSICAL THEREAPY. THE THEAAPIST SAID IT WOULD BE COMPLETED AT 1410 HOURS. THIS POWDER MILL OPERATOR LEFT TO GO TO ICU. THIS POWDER MILL OPERATOR WILL ATTEMPT TO SEE THE PATIENT TOMORROW, AT A NON-THERAPY TIME,
[2020-10-24 19:30] VITALS: BP 148/85
--- NOTE | 2020-10-24 22:20 | NUR ---
ASSUMED CARE OF PT AT 1920. PT IS A&O TO SELF. IS ON ROOM AIR. DENIES PAIN. IS STABLE. TRANSFERS TO CHAIR WITH 1 ASSIST, GB, & SLIDEBOARD. FALL PRECAUTIONS & HOURLY ROUNDING COTNINUED THIS SHIFT. PT IS TURNED Q2H. HAS SUPRAPUBIC CATH, IN WHICH DAY SHIFT NURSE COMMUNICATED THAT WOUND CARE IS TO CHANGE OUT ON 10/28/20. PT CONTINUES ON SEIZURE PRECAUTIONS. DAY NURSE ALSO REPORTED THAT SPOUSE IS CONCERNED REGARDING REDDENED AREA NEAR LEFT EYE & WOULD LIKE FOR THE DOCTOR TO ASSESS. THIS NURSE WILL COMMUNICATE TO THE DAY SHIFT NURSE IN THE AM. PT IS CURRENTLY IN ROOM, IN BED WATCHING TV. CALL LIGHT WITHIN REACH. LABS & VITALS REVIEWED. WILL CONTINUE TO MONITOR.
[2020-10-25 07:20] VITALS: BP 131/73
--- NOTE | 2020-10-25 15:30 | NUR ---
[facility] DIRECTIVE CONSULT [id number] WAS COMPLETED BY THIS SPIRAL TUBE WINDER HELPER. PATIENT SAID HE HE ALREADY HAD ONE NAMING HIS . I SUGGESTED IF HE COULD BRING A COPY FOR HIS CHART, THAT WOULD BE HELPFUL. I EXPLAINED THAT IF THEY COULD NOT FIND IT, I WOULD BE GLAD TO PREPARE ANOTHER ONE AND NOTARIZE IT.
[2020-10-25 20:00] VITALS: BP 119/70
--- NOTE | 2020-10-26 04:31 | NUR ---
assumed care approx 1900 evening 10/25. pt lying in bed with seizure precautions in place. pt took hs meds with water tolerating well. suprapubic catheter in place. pt appears to be sleeping soundly. bed alarm on and call light in reach. will continue to monitor.
[2020-10-26 07:10] VITALS: BP 121/71
--- NOTE | 2020-10-26 10:39 | NUR ---
ASSUMED CAREA AT 0700. PATIENT IS ALERT AND X4. PATIENT HAS SZ DISORDER. BED IS PADDED. PATIENT ARCINIEGA'S, HYDROMETER TESTER ARE EQUAL. ARCINIEGA'S. LUNGS ARE CLEAR AND DEMINISHED. ABD IS SOFT WITH BSX4. LAXATIVES GIVEN. PATIENT IS SLIDE BOARD TRANSFER TO W/C. PATIENT HAS SUPRAPUBIC CATHETER IN PLACE DRAINING SETH COLORED URINE. FALL AND SAFETY PROTOCOLS IN PLACE. DENIES PAIN AT THIS TIME. UP WITH ASSIST OF 1 STAFF WITH P.T. FALL AND SAFETY PROTOCOLS IN PLACE. DENIES PAIN AT THIS TIME. WILL CONTINUE TO MONITER.
[2020-10-26 19:48] VITALS: BP 101/59
--- NOTE | 2020-10-27 02:57 | NUR ---
PT TRANSFERRING FROM CHAIR TO BED AND IS TOLERATING FAIR. DENIES PAIN. RESTING COMFORTABLY. NO NEEDS VOICED. CALL LIGHT WITHIN REACH. FREQUENT OBSERVATION.
[2020-10-27 07:30] VITALS: BP 159/77
--- NOTE | 2020-10-27 11:10 | NUR ---
PT LYING IN BED THIS AM. PT HAS SUPERPUBIC CATH THAT IS DRAINING CLEAR YELLOW URINE. PT ALERT AND ORIENTED. PT DENIES ANY PAIN AT THIS TIME. PT LUNGS CLEAR AND ON ROOM AIR. PT ABLE TO MOVE LEGS IN BED. PT GETTING READY FOR LUNCH. PT TOOK MEDS WHOLE WITH WATER.
--- NOTE | 2020-10-27 13:51 | NUR ---
PT COMPLAINED OF LEGS HURTING. PAGED DR. DONATO ABOUT GETTING SOMETHING FOR PAIN.
--- NOTE | 2020-10-27 15:24 | NUR ---
CHECKED ON PT WITH TYLENOL, PT RESTING WITH EYES CLOSED. PT HAS SEIZURE PADS IN PLACE ON THE RAILS.
--- NOTE | 2020-10-27 17:11 | NUR ---
PT COMPLAINED OF LOWER LEGS CRAMPING. ADM TYLENOL 325MG 2 TABS PO FOR PAIN. PT NEEDED PULLED UP IN BED FOR DINNER.
[2020-10-27 19:23] VITALS: BP 90/43
--- NOTE | 2020-10-27 23:35 | NUR ---
ASSUMED CARE OF PT AT 1915. PT IS A&OX3. IS ON ROOM AIR. IS STABLE. DENIES PAIN. IS UP WITH SLIDE BOARD ASSIST X1, GB. FALL PRECAUTIONS & HOURLY ROUNDING CONTINUED THIS SHIFT. LABS & VITALS REVIEWED. PT IS TURNED EVERY 2 HOURS. IS ABLE TO MOVE SELF SOMEWHAT WITH ASSISTANCE. HAS SUPRAPUBIC CATH. APPLYING Z-GUARD TO BOTTOM. PT IS CURRENTLY ASLEEP. CALL LIGHT WITHIN REACH. WILL CONTINUE TO MONITOR. HEEL PROTECTORS IN PLACE.
[2020-10-28 07:15] VITALS: BP 106/61
--- NOTE | 2020-10-28 11:00 | NUR ---
ASSUMED CARE AT 0700. SLEPT FAIR. ALERT AND ORIENTATED X 3. HAS A SPC AND PER NEEDS TO BE CHANGED EVERY 21 DAYS AND DUE TO BE CHANGED TODAY. CALLED OSTOMY NURSE AND WILL BE HERE ON WEDNESDAY. DENIES ANY PAIN. LAST BM 10/23, MIRALAX GIVEN THIS MORNING. COLLEEN DOULA NOTIFIED REGARDING STOOL REGIMEN. APPETITIE GOOD. NOTED L LATERAL FACE WITH A SMALL ABRASION WITH RED SPOT WHICH IS OLD PER REPORT GIVEN BY NOC RN.
[2020-10-28 20:00] VITALS: BP 119/63
--- NOTE | 2020-10-29 05:36 | NUR ---
ASSESSMENT: PT WAS IN CHAIR AT THE BEGINNING OF THE SHIFT, HAD A LARGE BM AT THE CHANGE OF SHIFT. SUPER PUBIC CATH INTACT. LEG BAG CHANGED TO SCHULTE FOR HS. VSS, AFBRILE. SLOW PROGRESS TOWARDS DC GOALS. WILL CONTINUE TO MONTIOR.
[2020-10-29 05:53] LABS: ABSOLUTE NEUTROPHILS 4.3 thou/uL (1.4-8.2); BASOPHILS 0.6 % (0.0-2.0); EOSINOPHILS 0.1 % (0.0-3.0); HEMATOCRIT 45.4 % (42.0-52.0); HEMOGLOBIN 15.2 gm/dL (14.0-18.0); LYMPHOCYTES 23.6 % (24.0-44.0); MCH 30.2 pg (26.0-34.0); MCHC 33.4 g/dL (28.0-37.0); MCV 90.4 fL (80.0-100.0); MONOCYTES 7.8 % (1.0-8.0); PLATELET COUNT 168 thou/uL (150-400); POLYS 67.9 % (36.0-66.0); RBC 5.02 mil/uL (4.50-6.00); RDW 14.9 % (10.5-14.5); WBC 6.3 thou/uL (4.0-11.0)
[2020-10-29 05:57] LABS: CALCIUM 8.7 mg/dL (8.5-10.1); CREATININE 1.4 mg/dL (0.7-1.3); MAGNESIUM 2.2 mg/dL (1.8-2.4); POTASSIUM 3.7 mmol/L (3.5-5.1)
[2020-10-29 07:15] VITALS: BP 126/69
--- NOTE | 2020-10-29 13:35 | NUR ---
ASSUMED CARE AT 0700. ALERT AND ORIENTATED X 3. DENIES ANY PAIN. UNABLE TO CHANGE SPC CATHETHER YESTERDAY DUE TO INAVAILABILITY. AWARE TO BRING HIS CATHETER FROM HOME SO WE WILL BE ABLE TO REPLACE HIS SPC. SPC INTACT WITH GOOD URINE OUTPUT. APPETITE GOOD, LAST BM WAS 10/28. REFUSED THE LACTULOSE BUT TOOK THE MIRALAX TODAY. TOLERATED HIS MEDS WITH WATER.
--- NOTE | 2020-10-29 14:03 | NUR ---
team meeting, sup pubic cath to be changed, going to bring in cath to change. dc or if ok with . bpic, list for hh ( pt, ot, nursing). spectrum. no dme needs.
[2020-10-29 19:53] VITALS: BP 124/75
--- NOTE | 2020-10-30 00:21 | NUR ---
PT ALERT AND ORIENTED X 4. SUPRAPUBIC CATH INTACT WITH YELLOW URINE. PT DENIES PAIN OR DISCOMFORT. BED ALARM ON FOR SAFETY. PT AWAKE AT THIS TIME. PT CHECKED ON HOURLY ROUNDS.
[2020-10-30 07:30] VITALS: BP 125/67
--- NOTE | 2020-10-30 10:44 | NUR ---
ASSUMED CARE AT 0700. PATIENT IS ALERT AND ORIENTED X 3, AFFECT IS FLAT. PATIENT ARCINIEGA'S. LUNGS ARE CLEAR AND DEMINISHED. ABD IS SOFT WITH BSX4. PATIENT HAD BM TODAY. PATIENT HAS S.P CATHETER THAT WAS CHANGED BY OSTOMY NURSE. PATIENT HAS CLEAR URINE DRAINING INTO SCHULTE BAG. PATIENT IS UP IN W/C FOR MEALS. PATIENT IS SLIDE BOARD TRANSFER. FALL AND SAFETY PROTOCOLS IN PLACE. DENIES PAIN AT THIS TIME. CONTINUES TO PROGRESS TOWARDS D/C GOALS. WILL CONTINUE TO MONITER.
--- NOTE | 2020-10-30 10:50 | NUR ---
WOC NOTE; PER AND ORDERS,SUPRA PUBIC CATH DUE TO BE CHANGED, PT ALERT, COOPERATIVE, CHANGED SP CATH W/ #22 SILICONE, 10CC BALLOON, W/OUT ISSUES, CLEAR YELLOW URINE RETURNS NOTED, TOLERATED WELL, CONNECTED TO DEP DRAINAGE, CATH STAT LOCK IN PLACE, SPOUSE HAD BROUGHT OWN CATH FROM HOME, REPLACED IN ROOM W/ SILVER CATH #22/ BALLOON 30CC (OK TO USE 10CC), INSERTION KIT AND STAT LOCK. PER FAMILY CATH CHANGED Q21 DAYS. WOOD TYPE CUTTER AWARE
--- NOTE | 2020-10-30 11:51 | NUR ---
Followup: remains on rehab unit with expected discharge on 11/01 vs 11/04. Continues to eat 100% of meals consistently. No new wt since 10/24. Remains at low nutrition risk
[2020-10-30 19:27] VITALS: BP 128/76
--- NOTE | 2020-10-30 22:58 | NUR ---
PT ASSESSMENT COMPLETED AND VS COMPLETED. TACHY WITH VS THIS EVENING. CHECKED PT MANUALLY FOR ONE MINUTE AND PT PULSE WAS WNL AT 84 AND REGULAR. MEDS GIVEN ORDERED AND WELL TOLERATED. ASST WITH REPOSITION FOR COMFORT. SUPRAPUBIC CATH DRAINING MODERATE AMOUNT OF URINE. SLEEPING WELL. WILL CONTINUE TO MONITOR FREQUENTLY. 0 SEIZURES NOTED SO FAR THIS EVENING AND BED PADDED.
[2020-10-31 07:50] VITALS: BP 89/49
--- NOTE | 2020-10-31 14:39 | NUR ---
ASSUMED CARE AT 0700. SLEPT FAIRLY WELL. ALERT AND ORIENTATED X 3. DENIES ANY PAIN. SUPRAPUBIC CATHETER CHANGED ON 10/30, DRAINING WELL WITH CLEAR YELLOW URINE. APPETITE GOOD, HAD A BM YESTERDAY, REFUSED HIS STOOL REGIMEN TODAY. USES SLIDE BOARD TO TRANSFER. PARTICIPATING WITH THERAPY AND PROGRESSING TOWARDS GOAL. PLAN FOR DC HOME ON WEDNESDAY (11/04).
[2020-10-31 19:15] VITALS: BP 106/66
--- NOTE | 2020-10-31 20:29 | NUR ---
ASSUMED CARE OF PT AT 1900. PT IS A&OX3. IS ON ROOM AIR. DENIES PAIN. IS STABLE. IS UP WITH MAX ASSIST OF 2-3 SLIDE BOARD TO ANGELINA GB. FALL PRECAUTIONS & HOURLY ROUNDING CONTINUED THIS SHIFT. LABS & VITALS REVIEWED. PT HAS SUPRAPUBIC CATH IN PLACE. HEEL PROTECTORS IN ROOM. PT REFUSES TO CHANGE INTO GOWN. EDUCATION PROVIDED. PT IS CURRENTLY IN ROOM ASLEEP. CALL LIGHT WITHIN REACH. WILL CONTINUE TO MONITOR.
--- NOTE | 2020-11-01 07:30 | NUR ---
PATIENT RESTING QUIETLY WITH EYES CLOSED UPON ENTERING ROOM. PT. A&O X3. STATES HE DIDN'T SLEEP WELL. PEDAL PULSES PRESENT X2. PUSH PULLS DECREASED, BLE SOMEWHAT CONTRACTED. THIS IS CHRONIC D/Y MS. WILL CONTNIUE TO MONITOR
[2020-11-01 08:20] VITALS: BP 160/72
--- NOTE | 2020-11-01 12:10 | NUR ---
pt here and wanted to speak with cm. visited with her, she requested after 2pm dc and would help if us transports him home. " we can pay, [facility] ok to use, live right down road from here. thank you"/anmol vaca
[2020-11-01 19:30] VITALS: BP 90/50
--- NOTE | 2020-11-02 04:59 | NUR ---
assumed care approx 0 evening 11/01. pt sitting up in w/c at change of shift resting and watching tv. pt max assist into bed. supra pubic catheter in place draining madai colored urine. pt took hs meds with water tolerating well. seizure precautions in place. pt appears to be sleeping soundly. bed alarm on and call light in reach. will continue to monitor.
[2020-11-02 08:00] VITALS: BP 97/54
--- NOTE | 2020-11-02 11:04 | NUR ---
ASSUMED CARE OF PT AT 0700 THIS MORNING. PT WAS A/OX3 WITH FORGETFULNESS AND CONFUSION.PT HAS HX OF SEIZURES AND SEIZURE PRECAUTIONS ARE IN PLACE. PT HAS GENERALIZED WEAKNESS DUE TO MS. ASSESSMENTS WERE OTHERWISE UNREMARKABLE. TX AND MEDS ARE GIVVEN SCHEDULED. CALL LIGHT AND OTHER NEEDS ARE WITHIN REACH.
[2020-11-02 19:21] VITALS: BP 131/72
--- NOTE | 2020-11-03 01:39 | NUR ---
assumed care approx 1900 evening 11/02. pt lying in bed with head of bed elevated at change of shift watching tv. pt denied complaints. suprapubic catheter in place draining dark yellow urine to bag. pt took hs meds with water tolerating well. pt appears to be sleeping soundly. bed alarm on and call light in reach. will continue to monitor.
[2020-11-03 08:00] VITALS: BP 163/70
--- NOTE | 2020-11-03 16:53 | NUR ---
ASSUMED CARE OF PATIENT AT SHIFT CHANGE; 0700. ASSESSMENT CHARTED. MEDICATIONS ADMINISTERED PER MAR. VSS. PATIENT IS A&O3-4, SLOW TO RESPOND BUT MAKES NEEDS KNOWN. PATIENT IS A MAX ASSIST AND USES SLIDING BOARD. ON SIEZURE PRECAUTIONS; NO SIEZURE ACTIVITY NOTED THIS SHIFT. DIET AND PO INTAKE TOLERATED WELL. DENIES PAIN. NO ISSUES NOTED. PATIENT VOICED NO FURTHER NEEDS. WILL CONTINUE TO MONITOR AND FOLLOW PLAN OF CARE
[2020-11-03 19:19] VITALS: BP 111/66
--- NOTE | 2020-11-04 04:20 | NUR ---
PT AOX3, TO PERSON, PLACE, AND TIME. PT WITH DELAYED RESPONSES, NOTABLY LETHARGIC. PT REPORTS 3/10 BACK PAIN, NOTED TO IMPROVE WITH REPOSITIONING. PT RECEIVING PRN PO APAP Q6HR PRN. PT DENIES SOB WHILE ON ROOM AIR. PT TOLERATING PO INTAKE OF FLUIDS AND REGULAR DIET WITHOUT ISSUE. PT WITHOUT NAUSEA OR EMESIS. PT WITHOUT BM THIS SHIFT, INDWELLING CATHETER REMAINS IN PLACE, PATENT WITH SECUREMENT DEVICE. PT RESTING IN BED THROUGHOUT SHIFT, FREQUENT REPOSITIONING ENCOURAGED, PT NOTED TO SHIFT INDEPENDENTLY. SENSATION INTACT, CAPILLARY REFILL LESS THAN 3SEC IN ALL EXTREMITIES. PT ENCOURAGED TO NOTIFY STAFF FOR ALL NEEDS, CALL LIGHT WITHIN REACH, BED ALARM ON, BED LOCKED IN LOWEST POSITION, SEIZURE AND ASPIRATION PRECAUTIONS MAINTAINED, FREQUENT MONITORING WILL CONTINUE.
[2020-11-04 05:31] LABS: CALCIUM 8.4 mg/dL (8.5-10.1); CREATININE 1.3 mg/dL (0.7-1.3); POTASSIUM 3.9 mmol/L (3.5-5.1)
[2020-11-04 07:15] VITALS: BP 103/51
--- NOTE | 2020-11-04 09:32 | NUR ---
DC HOME TODAY WITH [facility], [facility] WILL PICK HIM UP WHEEL CHAIR VAN TO TAKE HIM HOME BETWEEN [phone] PER REQUEST. [facility]PCI SENT WITH DC ORDERS.
[2020-11-04 09:39] VITALS: BP 103/51
--- NOTE | 2020-11-04 15:04 | NUR ---
ASSUMED PT CARE THIS AM. PATIENT A&O2-3. SEIZURE PRECAUTIONS IN PLACE. PATIENT WITH A SUPRAPUBIC CATHETER. HAS NO COMPLAINTS OF PAIN, NUMBNESS, OR TINGLING. PATIENT ON ROOM AIR. PATIENT IN WHEELCHAIR DURING DURATION OF SHIFT, REMINDING PATIENT TO REPOSITION SELF IN CHAIR TO OFFLOAD PRESSURE. TOOK MORNING MEDICATIONS WITHOUT ISSUE. FALL PRECAUTIONS ARE IN PLACE, CALL LIGHT WITHIN REACH. PATIENT REPORTS UNDERSTANDING OF DISCHARGE TEACHING.
--- NOTE | 2020-11-06 15:36 | PLAN ---
[facility] [place] [address] REHAB UNIT PLAN OF CARE Name: ZBIGNIEW COREA JR Room #: 506-1 [facility] IN M.R.#: [id number] Admission: 10/23/20 Attend Phys: Lalo Reed MD Discharge: 11/04/20 Date of : 41 Report #: [id number] THIS REPORT FOR: cc: Shweta Shanks MD, Jennifer L MD Smithson,Lalo Jacob MD ~ DOC #: [id number] Lalo Reed MD DATE OF SERVICE: 10/25/2020 The patient was seen today on the inpatient rehabilitation cardona. He is in no distress. He is pleasant, cooperative. He does have some delay in his responses, but follows basic one-step commands. He premorbidly had been able to do slide board transfers with setup utilizing manual wheelchair with his multiple sclerosis and lower extremity paraparesis. At the current time, he is min assist with bed to wheelchair, utilizing the sliding board. He is nonambulatory. Bed mobility is mod assist. Upper body dressing, supervision with lower body dressing, max assist. In speech therapy, he has moderate to severe cognitive deficits with severe memory deficits. He does have a functional swallow. He did reasonably well with [id number] for me. I could not detect any obvious nystagmus, although he had some difficulty understanding exactly what I was asking. ASSESSMENT: 1. Acute on chronic toxic metabolic encephalopathy. 2. 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 He does not have any clonus of his ankles on exam today, 3. Urinary tract infection, on oral antibiotic . 4. Sepsis secondary to UTI. 5. Neurogenic bladder. 6. Acute kidney injury with chronic kidney disease history. 7. History of subdural hematoma with subsequent craniotomy and evacuation. 8. Chronic seizure disorder. 9. Hypertension. 10. Dysphagia. PLAN: The overall plan of care is based on the pre-admit screen and information garnered from therapy assessments. 1. Estimated length of stay is probably going to be 14 days. 2. Medical prognosis is reasonably good. 3. Anticipated interventions includes the interdisciplinary acute inpatient program. 4. Anticipated functional outcomes would be for the patient to become modified independent with basic transfers utilizing sliding board as well as to improve as far as dressing activities and functional cognition, so that he can [place] [address] REHAB UNIT PLAN OF CARE Name: ZBIGNIEW COREA JR Room #: 506-1 [facility] IN [facility]#: [id number] Admission: 10/23/20 Attend Phys: Lalo Reed MD Discharge: 11/04/20 Date of : 41 Report #: [id number] 5. Discharge destination would be back home with his who is his caregiver. 6. Expected therapy by discipline includes PT, OT and speech 1 hour per day each five days a week throughout the duration of the acute inpatient rehabilitation program. ADDENDUM: The patient's prognosis for significant practical improvement within a reasonable period of time appears good. Given the patient's complex medical condition and the risk of further medical complication, rehabilitation services could not be safely provided at a lower level of care such as a group home facility. MD KARTHIK Thompson/SEYMOUR <ELECTRONICALLY SIGNED> By: Lalo Reed MD 11/06/20 1536 [id number] [id number] Lalo Reed MD /nt
== END 2020-11-04 15:25 | disposition home health service (06) | DRG 91 ==
PROVIDERS: Internal Medicine; Nurse Practitioner; Nurse Practitioner Family; ADMIT Physical Medicine & Rehabilitation; ATTEND Physical Medicine & Rehabilitation
DX: G92 Toxic encephalopathy (principal); A41.9 Sepsis, unspecified organism; N39.0 Urinary tract infection, site not specified; N17.9 Acute kidney failure, unspecified; N31.9 Neuromuscular dysfunction of bladder, unspecified; N18.9 Chronic kidney disease, unspecified; G40.909 Epilepsy, unspecified, not intractable, without status epilepticus; R13.10 Dysphagia, unspecified; I05.0 Rheumatic mitral stenosis; F32.9 Major depressive disorder, single episode, unspecified; R53.81 Other malaise; D69.6 Thrombocytopenia, unspecified; I12.9 Hypertensive chronic kidney disease with stage 1 through stage 4 chronic kidney disease, or unspecified chronic kidney disease; F01.50 Vascular dementia, unspecified severity, without behavioral disturbance, psychotic disturbance, mood disturbance, and anxiety; Z88.8 Allergy status to other drugs, medicaments and biological substances
CPT/HCPCS: 10112

== ENCOUNTER 2021-05-25 13:31 | Inpatient (IN) | payer OTHER, BC ==
[~2021-05-25] VITALS: Ht 185.4 cm; Wt 79.4 kg
--- NOTE | ~2021-05-25 | EMS ---
[facility] [address] [place] [address] EMS Patient Care Report Name: ZBIGNIEW COREA JR Room #: REG TOBI Smith#: [id number] Admission: 05/25/21 Attend Phys: Discharge: Date of : 41 Report #: [id number] THIS REPORT FOR: //name// Report Transmitted: 05/25/2021 14:33 EMS Care Summary [facility] MED-ACT Incident [id number] @ 05/25/2021 12:50 Incident Location [address] [place] [address] Patient RANDY COREA Male, 75 Years 1945 Patient Address [address] [place] [address] Patient History Diabetes,Hypertension (HTN),Multiple Sclerosis, Patient Allergies Other drug allergy, Patient Medications Other, Chief Complaint general weakness "I am off" Disposition Transported No Lights/Larned Dispatch Reason Unconscious/Fainting Transported To [facility] Narrative Arrived on scene of a house to find a 75 y/o/m sitting upright on the side of his bed in the care of LFD. states pt is just a bit "off" today. she said he woke up and was red in the face and seamed confused or really slow to answer her. Pt states he feels ok but maybe a bit weaker than normal. No CP no sob no [facility] [address] [place] [address] EMS Patient Care Report Name: ZBIGNIEW COREA JR Room #: REG [facility]#: [id number] Admission: 05/25/21 Attend Phys: Discharge: Date of : 41 Report #: [id number] loc no N/V no abd pain no diarrhea no fall or trauma. no neck no back pain. no sign of CVA. Pt does have a fever. Pt has a HX of MS and is unable to walk and is chair/bed confined. pt to go to [facility] Ed for further evaluation. Pt was chatty in the ambulance with no other complaints of changes. upon arrival pt was placed in room 5 with report and care given over to RN and staff. Initial Vitals @13:14P: 108,R: 14,BP: 175/97,Pain: 0/10,Temp: 101F,SpO2: 94, @13:23P: 108,R: 14,BP: 139/70,Pain: 0/10,GCS: 15,SpO2: 93,Revised Trauma: 12, @PTAP: 90,R: 14,BP: 152/78,Pain: 0/10,GCS: 15,Temp: 101F,Glucose: 106,SpO2: 94,Revised Trauma: 12, Impression Fever Procedures @12:59 ALS Assessment Response: UnchangedSucceeded @13:02 Surgical Mask on Patient Response: Unchanged Timeline CARAMEL CUTTER HAND,BP: 152/78 M,PULSE: 90,RR: 14 R,SPO2: 94 Ox,ETCO2: ,B,PAIN: 0,GCS: 15, 12:49,Call Received 12:49,Psap Call 12:50,Dispatched 12:50,En Route 12:56,On Scene 12:57,At Patient 12:59,ALS Assessment,Response: UnchangedSucceeded, 13:02,Surgical Mask on Patient,Response: Unchanged 13:14,BP: 175/97 M,PULSE: 108,RR: 14 R,SPO2: 94 Ox,ETCO2: ,BG: ,PAIN: 0,GCS: , 13:15,Depart Scene 13:23,BP: 139/70 M,PULSE: 108,RR: 14 R,SPO2: 93 Ox,ETCO2: ,BG: ,PAIN: 0,GCS: 15, 13:27,At Destination 13:39,Call Closed Disclaimer v1.1 Copyright 2020 [employer] This EMS Care Summary contains data elements from the applicable legal record (which may be displayed differently). It is designed to provide pertinent information for the following purposes: continuity of care, clinical quality, and state data reporting. The complete legal record is available to ED staff and administrators of the receiving hospital in [facility] Patient Tracker. All data [address] [address] EMS Patient Care Report Name: ZBIGNIEW COREA [id number] Admission: 05/25/21 Attend Phys: Discharge: Date of : 41 Report #: [id number] is provided "as is."
[2021-05-25 13:31] VITALS: BP 142/71
[~2021-05-25 13:31] MED LIST changes: +LEVOFLOXACIN500 MG PO
[2021-05-25 15:42] LABS: ABSOLUTE NEUTROPHILS 11.9 thou/uL (1.4-8.2); BASOPHILS 0.3 % (0.0-2.0); HEMATOCRIT 49.9 % (42.0-52.0); HEMOGLOBIN 16.7 gm/dL (14.0-18.0); LYMPHOCYTES 6.4 % (24.0-44.0); MCH 30.3 pg (26.0-34.0); MCHC 33.5 g/dL (28.0-37.0); MCV 90.4 fL (80.0-100.0); MONOCYTES 6.2 % (1.0-8.0); PLATELET COUNT 186 thou/uL (150-400); POLYS 87.1 % (36.0-66.0); RBC 5.53 mil/uL (4.50-6.00); RDW 13.8 % (10.5-14.5); WBC 13.7 thou/uL (4.0-11.0)
[2021-05-25 15:47] LABS: CALCIUM 8.4 mg/dL (8.5-10.1); CREATININE 1.3 mg/dL (0.7-1.3); POTASSIUM 4.1 mmol/L (3.5-5.1)
[2021-05-25 15:50] LABS: URINE BILIRUBIN NEGATIVE (Negative); URINE BLOOD 3+ (Negative); URINE CLARITY SL CLOUDY; URINE COLOR YELLOW; URINE GLUCOSE-RANDOM* NEGATIVE (Negative); URINE KETONES TRACE (Negative); URINE LEUKOCYTES-REFLEX 1+ (Negative); URINE NITRITE-REFLEX POSITIVE (Negative); URINE PROTEIN (DIPSTICK) 1+ (Negative); URINE SPECIFIC GRAVITY 1.025 (1.005-1.035); URINE UROBILINOGEN 0.2 E.U./dl (0.2-1.0)
[2021-05-25 15:56] LABS: ALBUMIN 3.4 g/dL (3.4-5.0); TOTAL PROTEIN 7.3 g/dL (6.4-8.2)
[2021-05-25 16:06] LABS: BACTERIA-REFLEX >30 Many /HPF (None Seen); CASTS None Seen /LPF (None Seen); CRYSTALS None Seen /LPF (None Seen); MUCUS 0-3 Light strn/LPF (None Seen); SQUAMOUS None Seen /LPF (0-3); URINE RBC >20 Many /HPF (NONE SEEN); URINE WBC-REFLEX >25 Many /HPF (0-5)
[2021-05-25] MEDS ORDERED: VITAMIN D325 MC5 PO (17:07)
[2021-05-25 17:30] VITALS: BP 94/43
[2021-05-25 19:31] LABS: ALBUMIN 3.4 g/dL (3.4-5.0); TOTAL PROTEIN 7.3 g/dL (6.4-8.2)
[2021-05-26 05:22] LABS: HEMATOCRIT 41.8 % (42.0-52.0); MCH 30.8 pg (26.0-34.0); MCHC 34.3 g/dL (28.0-37.0); MCV 89.6 fL (80.0-100.0); RBC 4.66 mil/uL (4.50-6.00); RDW 13.9 % (10.5-14.5); WBC 12.9 thou/uL (4.0-11.0)
[2021-05-26 05:28] LABS: HEMOGLOBIN 14.3 gm/dL (14.0-18.0)
[2021-05-26 05:30] LABS: CALCIUM 8.2 mg/dL (8.5-10.1); CREATININE 1.4 mg/dL (0.7-1.3); MAGNESIUM 1.4 mg/dL (1.8-2.4); POTASSIUM 3.9 mmol/L (3.5-5.1)
--- NOTE | 2021-05-26 07:38 | EKG ---
[address] [address] ELECTROCARDIOGRAM REPORT Name: ZBIGNIEW COREA JR Room #: 170-7 ADM IN ..#: [id number] Admission: 05/25/21 Attend Phys: Oleg Kunz MD Discharge: Date of : 41 Report #: [id number] [facility] ED Test Date: 2021-05-25 Test Time: 13:41:11 Pat Name: ZBIGNIEW COREA Department: Room: 170 Gender: M Teleprinter Installer: ZACH : 1945 Requested By: Phil Guajardo Order Number: [id number] MD: Fred Reeder Measurements Intervals Emily Rate: 107 P: 26 KS: 178 QRS: -53 QRSD: 87 T: 51 QT: 344 QTc: 459 Interpretive Statements Sinus tachycardia Left anterior fascicular block Abnormal R-wave progression, early transition Minimal ST depression, lateral leads Baseline wander in lead(s) I Compared to ECG 03/04/2019 15:45:56 ST (T wave) deviation now present Sinus rhythm no longer present T-wave abnormality no longer present Electronically Signed On 05-26-2021 7:38:12 CHILDREN'S NURSERY ASSISTANT by Fred Reeder [email or web address] <ELECTRONICALLY SIGNED> By: Fred Reeder MD, FACC 05/26/21 0738 134 40 Fred Reeder MD, FAC /EPI
[2021-05-26 07:43] VITALS: BP 101/54
[2021-05-26 12:43] VITALS: BP 116/52
[2021-05-26 15:05] VITALS: BP 111/48
--- NOTE | 2021-05-26 15:46 | NUR ---
ASSUMED PT CARE UPON ADMISSION TO UNIT AROUND 1523. PATIENT APPEARS TO BE A&OX3, ABLE TO MAKE SOME NEEDS KNOWN BUT FORGERFUL. PATIENT REPORTS BEING IN NO PAIN. IV SALINE LOCKED. PATIENT REPORTS NO NUMBNESS OR TINGLING. PATIENT ORIENTED TO ROOM. FALL PRECAUTIONS ARE IN PLACE, CALL LIGHT WITHIN REACH.
--- NOTE | 2021-05-26 16:22 | NUR ---
75 year old males presented to the ED on 05/25/21 for evaluation per EMS of fever greater than 101 and generalized weakness. PMX of MS, left-sided hemiparesis, subdural hematoma s/p Timmy hole drainage, HTN, appendectomy, and chronic suprapubic catheter. Patient is not vaccinated against COVID-19. Per ID Now is negative. The patient has been admitted for Sepsis secondary to UTI that is recurrent given Chronic suprapubic cath and Neurogenic bladder. Patient did discharge from [facility] on 11/04/20 to home with [facility] from the Acute Rehab unit. The patient's spouse Alma Rosa Herrera at [phone] and son Ajit Duque at [phone] are listed as next of kin. Spoke with Alma Rosa Herrrea who too was in our rehab unit in November of this year. Re-introduced role of CM and will have therapy evaluations to help determine the plan of care and that CM will follow. Spouse did wish to note that the SP cath was to be changed on 05/27/21.
[2021-05-26 18:17] LABS: URINE BILIRUBIN NEGATIVE (Negative); URINE BLOOD 3+ (Negative); URINE COLOR YELLOW; URINE GLUCOSE-RANDOM* NEGATIVE (Negative); URINE KETONES NEGATIVE (Negative); URINE PROTEIN (DIPSTICK) NEGATIVE (Negative); URINE UROBILINOGEN 0.2 E.U./dl (0.2-1.0)
[2021-05-26 18:25] LABS: URINE CLARITY SL HAZY; URINE LEUKOCYTES-REFLEX 1+ (Negative); URINE NITRITE-REFLEX POSITIVE (Negative)
[2021-05-26 18:31] LABS: SQUAMOUS None Seen /LPF (0-3); URINE WBC-REFLEX 6-15 Few /HPF (0-5)
[2021-05-26 18:32] LABS: BACTERIA-REFLEX >30 Many /HPF (None Seen); CASTS None Seen /LPF (None Seen); CRYSTALS None Seen /LPF (None Seen); URINE RBC 3-10 Few /HPF (NONE SEEN)
[2021-05-26 19:40] VITALS: BP 138/72
--- NOTE | 2021-05-27 04:55 | NUR ---
ASSUMED PT CARE THIS PM. PT IS ALERT AND ORIENTED X3. PT HAS SUPRAPUBIC CATH IN PLACE WHICH IS STILL PATENT. MEDS WERE GIVEN PER EMAR ORDERS. PT DID NOT VERBALIZE ANY CONCERNS. PT IS ON RA. FALL PRECAUTIONS IN PLACE. WILL CONTIUNUE TO MONITOR.
[2021-05-27 06:01] LABS: HEMATOCRIT 42.7 % (42.0-52.0); HEMOGLOBIN 14.6 gm/dL (14.0-18.0); MCH 30.9 pg (26.0-34.0); MCHC 34.3 g/dL (28.0-37.0); RBC 4.74 mil/uL (4.50-6.00); RDW 14.3 % (10.5-14.5); WBC 8.5 thou/uL (4.0-11.0)
[2021-05-27 06:27] LABS: CALCIUM 8.4 mg/dL (8.5-10.1); CREATININE 1.2 mg/dL (0.7-1.3); MAGNESIUM 1.6 mg/dL (1.8-2.4); POTASSIUM 3.9 mmol/L (3.5-5.1)
[2021-05-27 07:32] VITALS: BP 119/65
--- NOTE | 2021-05-27 13:48 | NUR ---
ASSUMED PT CARE THIS AM. PATIENT IS A&OX3, ABLE TO MAKE NEEDS KNOWN. PATIENT REPORTS NO PAIN, NUMBNESS, OR TINGLING. IV REMAINS PATENT, SALINE LOCKED. SUPRAPUBIC CATHETER DRAINING DARK YELLOW URINE. PATIENT IS ON ROOM AIR. MEDICATIONS TAKEN WITHOUT ISSUE. FALL PRECUATIONS ARE IN PLACE, CALL LIGHT WITHIN REACH. PATIENT SPOUSE INQUIRED ABOUT GETTING PATIENTS SUPRAPUBIC CATHETER CHANGED OUT, PHYSICIAN NOTIFIED ABOUT THIS.
--- NOTE | 2021-05-27 13:49 | NUR ---
PT ADMITTED RELATED TO UTI. CM REVIEWED CHART AND SPOKE WITH CARE TEAM. CM MET WITH PT AT BEDSIDE THIS DAY. PT APPEARED TO BE A&O X2. CM ROLE INTRODUCED. PT CONFIRMED THAT HE HAD BEEN LIVING IN A HOUSE WITH HIS WITH A RAMP TO ENTER THROUGH GARAGE AND NO STEPS PT USES INSIDE. PT INDICATED HE HAS A WC FOR HOME USE. PT INDICATED HIS AND SON LEONILA ARE GOOD CONTACTS FOR HIM. PT CONFIRMED HIS PCP DR. NGOC ABARCA. CM CALLED AND SPOKE WITH PT'S SPOUSE AND SHE CONFIRMED THE ABOVE. SHE INDICATED THAT PT HAD BEEN ON SERVICE WITH [facility] FOR HIS SUPRAPUBIC CATHETER CHANGING EVERY 21 DAYS. SHE INDICATED IT WAS DUE TO BE CHANGED TODAY 05/27/21. CM INDICATED THAT HOSPITALIST AND NURSING TEAM WORKING ON THAT. SPOUSE INDICATED THAT PT DOESN'T WALK OR STAND THAT SHE ASSISTS PT WITH SLIDEBOARD TRANSFERS TO AND FROM THE WC. SPOUSE INDICATED THAT SHE ANTICIPATES PT RETURING HOME WITH HOME HEALTH ONCE MEDICALLY STABLE. CM FOLLOWING REGARDING DC PLANNING.
[2021-05-27 16:30] VITALS: BP 129/74
[2021-05-27 19:10] VITALS: BP 128/70
[2021-05-27 19:30] VITALS: BP 129/72
[2021-05-28 00:10] VITALS: BP 120/56
--- NOTE | 2021-05-28 03:36 | NUR ---
05/27/21 @ 1900, ASSUMED CARE AT START OF SHIFT, ADMITTED FOR UTI SECONDARY TO SUPER PUBIC CATHERER, WHICH IS DRAINING SETH URINE TO GRAVITY. IV IN RIGHT FORE ARM IS S.L. AND FLUSHES AND DRAWS WELL AT START OF SHIFT. IV CEFTIN ANTIBIOTIC RUN @ 22:35 AND TOLERATED WELL. A&OX3, UNABLE TO NAME THE PRESIDENT BUT HAD A NEGITIVE POLITICAL OPINION OF HIM. NOT ABLE TO STATE THE YEAR, BUT ABLE TO GIVE THE MONTH AND DATE, DAY OF THE WEEK. VSS, PLEASANT AFFECT NOTED, COOPERATIVE WITH ASSESSMENT, HRRR, LUNGS CTA BILAT WITH A COUGH NBOTED. ABD N X4Q, WITH SUPER PUBIC CATH JUST BELOW THE LOWER QUADRANTS OF THE ABD. COMPLIANT WITH MEDICATION ADMINISTRATION. SLEPT WELL @ HS. CALL LIGHT WITHIN REACH, BED IN LOW POSITION, WILL CONTINUE TO MONITOR FOR SAFETY AND COMFORT PER UNIT PROTOCOL.
[2021-05-28 04:41] VITALS: BP 113/65
[2021-05-28 05:51] LABS: HEMATOCRIT 45.5 % (42.0-52.0); HEMOGLOBIN 15.3 gm/dL (14.0-18.0); MCH 30.4 pg (26.0-34.0); MCHC 33.5 g/dL (28.0-37.0); MCV 90.6 fL (80.0-100.0); RBC 5.03 mil/uL (4.50-6.00); WBC 7.9 thou/uL (4.0-11.0)
[2021-05-28 06:20] LABS: CALCIUM 8.8 mg/dL (8.5-10.1); CREATININE 1.5 mg/dL (0.7-1.3); MAGNESIUM 2.3 mg/dL (1.8-2.4)
[2021-05-28 07:30] VITALS: BP 129/72
--- NOTE | 2021-05-28 11:31 | HC ---
[facility] [place] [address] CONSULTATION Name: ZBIGNIEW COREA JR Room #: 451-P ADM IN M.R.#: [id number] Admission: 05/25/21 Attend Phys: Oleg Kunz MD Discharge: Date of : 41 Report #: [id number] THIS REPORT FOR: cc: Shweta Shanks MD, Jennifer L MD Barry, Joseph W. MD ~ DATE OF SERVICE: 05/27/2021 INFECTIOUS DISEASE CONSULTATION ATTENDING PHYSICIAN: Dr. Kunz. REASON FOR EVALUATION: Febrile illness with a complicated urinary tract infection. The patient with longstanding indwelling suprapubic catheter. HISTORY OF PRESENT ILLNESS: Chart reviewed. The patient examined. 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 He did undergo patricia hole drainage as well as chronic suprapubic catheter. He is quite encephalopathic. It is difficult to ascertain details. He is quite somnolent as well. He was initially evaluated on the day of admission. Chest x-ray showed possible multifocal infiltrate versus atelectasis, mild leukocytosis. Coronavirus testing x 2 was negative. Lactic acid 1.5. Influenza antigen was negative. Urinalysis did show marked pyuria and bacteriuria; however, cultures had growth of multiple organisms. He was empirically started on cefepime. Since his admission, he has not had. Temperature elevation noted. He has become less tachycardic and improved blood pressure. ALLERGIES: BACLOFEN. CURRENT MEDICATIONS: Albuterol, cyanocobalamin, cefepime, levetiracetam, citalopram. PAST MEDICAL HISTORY: As described above MS and paraparesis. He is wheelchair bound at this point, history of seizure activity, recurrent urinary tract infections, longstanding indwelling suprapubic catheter. SOCIAL HISTORY: Nonsmoker, occasional ethanol, no illicit drug use. FAMILY HISTORY: Noncontributory. REVIEW OF SYSTEMS: Not reliably obtained. PHYSICAL EXAMINATION: GENERAL: He appears chronically ill and undernourished. He is quite somnolent [facility] [address] [place] [address] CONSULTATION Name: ZBIGNIEW COREA Room #: 451-P [facility] IN [facility].#: [id number] Admission: 05/25/21 Attend Phys: Oleg Kunz MD Discharge: Date of : 41 Report #: [id number] at this point, briefly wakes up. It is not clear that he has significant orientation or comprehension. VITAL SIGNS: Temperature 98.3, pulse 88, respirations 18, blood pressure 119/65. SKIN: Warm, dry, no rashes. HEENT: Extraocular muscles appear to be intact. NECK: Supple. LUNGS: Diminished breath sounds and some scattered crackles at the bases, overall diminished. HEART: Regular. I do not appreciate murmur. ABDOMEN: Mildly distended, somewhat firm. No peritoneal signs. Does have a suprapubic catheter in place. GENITOURINARY AND RECTAL: Deferred. LABORATORY DATA: As described above. Blood cultures sterile thus far. Electrolytes 138, potassium 3.9, chloride 103, bicarbonate is 23, anion gap of 12, BUN and creatinine 19 and 1.2. CBC: White count of 8.5, H and H were 14.6 and 42.7, platelets of 140. Follow up urinalysis did show moderate pyuria, 6-15 white cells, greater than 30 bacteria. ASSESSMENT AND PLAN: Febrile illness with encephalopathy. It is not certain what his baseline is. There is known underlying significant medical disease burden including multiple sclerosis, suspect a complicated urinary tract infection. In terms of infectious etiology, we will continue cefepime for now. Repeat urinalysis with culture is pending. Certainly a risk for additional complications and see how he does clinically. Continue supportive care. <ELECTRONICALLY SIGNED> By: Juliano Vieira MD 05/28/21 1131 [id number] Juliano Vieira MD /nt
--- NOTE | 2021-05-28 13:08 | NUR ---
This RN spoke with Paulette from Urology via phone about urology consult on changing supra cath. Paulette stated she will figure out who is taking care of consult
--- NOTE | 2021-05-28 13:55 | NUR ---
CARE TEAM INDICATED THAT WE ARE AWAITING FINAL RECS FROM ID. [facility] CONSULT WAS MADE. THEY ARE TO ASSESS FOR POSSIBLE ADMISSION. CM TO REACH OUT TO PT'S SPOUSE TO DISCUSS POSSIBLE ACUTE REHAB VS. SKILLED. CM FOLLOWING REGARDING DC PLANNING.
--- NOTE | 2021-05-28 17:27 | NUR ---
Pt A & O x2. Pt VS stable. Pt has seizure precautions in place. Pt had BM this shift. Pt supra cath changed this shift. see documentation. urology PA spoke with this RN and stated for nurses to change supra cath. pt is NSR on the tele. Pt received medications as ordered. Pt worked with PT/OT this shift. Pt is able to make needs known
[2021-05-28 19:26] VITALS: BP 119/67
[2021-05-29 00:52] VITALS: BP 115/67
--- NOTE | 2021-05-29 03:43 | NUR ---
RECEIVD CARE OFTHIS PATIENT AT 1900. PATIENT ALERT AND ORIENTED X4 WITH PERIODS OF CONFUSION. DENIES PAIN. REMAINS ON BEDREST. RAILS PADDED PER PROTOCOL FOR SEIZURES. IV PATENT WITH FLUIDS INFUSING. HAS SUPRAPUBIC CATH. SLEPT MOST OF NIGHT.
[2021-05-29 06:00] VITALS: BP 113/61
[2021-05-29 06:23] LABS: HEMATOCRIT 40.3 % (42.0-52.0); HEMOGLOBIN 13.9 gm/dL (14.0-18.0); MCH 31.2 pg (26.0-34.0); MCHC 34.5 g/dL (28.0-37.0); MCV 90.2 fL (80.0-100.0); RBC 4.46 mil/uL (4.50-6.00); RDW 14.4 % (10.5-14.5); WBC 5.5 thou/uL (4.0-11.0)
[2021-05-29 06:45] LABS: CALCIUM 8.1 mg/dL (8.5-10.1); CREATININE 1.3 mg/dL (0.7-1.3); POTASSIUM 3.9 mmol/L (3.5-5.1)
[2021-05-29 07:18] VITALS: BP 118/69
[2021-05-29] MEDS ORDERED: CEFUROXIME500 MG PO (10:12)
--- NOTE | 2021-05-29 14:41 | NUR ---
[facility] INDICATED THAT THEY ARE ACCEPTING OF PT. CM NOTIFIED PT'S SPOUSE THIS AM. ALLIGATOR HUNTER MET WITH PT AT BEDSIDE THIS AFTERNOON. CARE TEAM INDICATED THAT PT IS MEDICALLY STABLE TO DC TO [facility] TODAY. PT IS TO DC TO ROOM 512. CM CALLED AND NOTIFIED PT'S SPOUSE. ALL ARE AWARE AND AGREEABLE. NO OTHER CM INTERVENTION INDICATED. PT TO DC TO 5[facility] RM 512 THIS DAY. CASE CLOSED.
--- NOTE | 2021-05-29 16:08 | NUR ---
Pt A & O x2. Pt VS stable. Pt is NSR on the tele. Pt Pt received medications as ordered. Pt has supra turk in place. Pt received orders to go the inpatient rehab. Report given to rehab nurse and pt transferred via bed with personal belongings
== END 2021-05-29 16:00 | DRG 871 ==
LOC: ER 13:31 → EROBS 18:58 → 4W 18:58
PROVIDERS: Emergency Medicine; ADMIT Internal Medicine; ATTEND Internal Medicine
DX: A41.9 Sepsis, unspecified organism (principal); J18.9 Pneumonia, unspecified organism; G93.41 Metabolic encephalopathy; N39.0 Urinary tract infection, site not specified; G82.20 Paraplegia, unspecified; N31.9 Neuromuscular dysfunction of bladder, unspecified; G35 Multiple sclerosis; E83.42 Hypomagnesemia; I10 Essential (primary) hypertension; R25.2 Cramp and spasm; G40.909 Epilepsy, unspecified, not intractable, without status epilepticus; R53.81 Other malaise; E53.8 Deficiency of other specified B group vitamins; M19.90 Unspecified osteoarthritis, unspecified site; Z20.822 Contact with and (suspected) exposure to COVID-19; Z93.50 Unspecified cystostomy status; Z90.49 Acquired absence of other specified parts of digestive tract; Z82.49 Family history of ischemic heart disease and other diseases of the circulatory system; Z88.8 Allergy status to other drugs, medicaments and biological substances; Z86.73 Personal history of transient ischemic attack (TIA), and cerebral infarction without residual deficits
CPT/HCPCS: 10045

== ENCOUNTER 2021-05-29 12:58 | Inpatient (IN) | payer OTHER, BC ==
[~2021-05-29] VITALS: Ht 188 cm; Wt 95.3 kg
[~2021-05-29 12:58] MED LIST changes: +CEFUROXIME500 MG PO; +VITAMIN D325 MC5 PO
[2021-05-29 19:47] VITALS: BP 113/55
--- NOTE | 2021-05-29 23:42 | NUR ---
ASSUMED CARE OF PT AT 1945. PT IS A&O TO PERSON & PLACE. IS CONFUSED & FORGETFUL. TAKES TIME TO RESPOND TO SOME QUESTION OR MAY NOT ANSWER AT ALL. IS ON ROOM AIR. DENIES PAIN. IS STABLE. IS TURNED Q2H. IS UP WITH MAX ASSIST OF 2, SLIDE BOARD TRANSFER, WITH GAIT BELT. FALL PRECUATIONS & HOURLY ROUNDING CONTINED THIS SHIFT. LABS & VITALS REVIEWED. SUPRAPUBIC CATH INTACT. CONTINUES ON SEIZURE PRECAUTIONS. PT IS IN BED ASLEEP. CALL LIGHT WITHIN REACH. WILL CONTINUE TO MONITOR.
[2021-05-30 06:19] LABS: HEMATOCRIT 41.1 % (42.0-52.0); HEMOGLOBIN 13.9 gm/dL (14.0-18.0); MCHC 33.9 g/dL (28.0-37.0); MCV 91.6 fL (80.0-100.0); RBC 4.49 mil/uL (4.50-6.00); RDW 14.3 % (10.5-14.5); WBC 6.7 thou/uL (4.0-11.0)
[2021-05-30 06:25] LABS: ALBUMIN 2.7 g/dL (3.4-5.0); CREATININE 1.1 mg/dL (0.7-1.3); TOTAL BILIRUBIN 0.9 mg/dL (0.2-1.0); TOTAL PROTEIN 5.8 g/dL (6.4-8.2)
[2021-05-30 08:00] VITALS: BP 110/58
--- NOTE | 2021-05-30 09:20 | NUR ---
WOUND CARE CONSULT; RISK ASSESSMENT RE:POOR NUTITIONAL STATUS. HIS MARIEL SCORE IS 13 WHICH IS A MODERATE RISK. THE CURRENT ALBUMIN IS LOW AT 2.7. THE PATIENT HAS NO WOUNDS ONLY BLANCHABLE ERYTHEMA. RECOMMENDATIONS; -Q2H TURNING EMPLOYING WEDGES AND PILLOWS. -USE A LOW AIRLOSS PUMP USING THE ISOFLEX SETTING. -BARRIER CREAM TO ALL MAGEN PROMINENCES. DISCUSSED WITH RN TODAY.
--- NOTE | 2021-05-30 09:25 | NUR ---
75 years old male admitted with confusion, weakness, and fever noted by his at home. CT head no acute process. Frequent UTI. ID and urology consulted. placed on iv ABX. Has a suprapubic Cather. HX of MS and chronic LE spasticity with paraparesis. pt is now admitted to [facility] acute rehab unit for his encephalopathy and debilitation. Chart review. Cm visited with Wil at bedside. Patient known from hospital and acute rehab in September 2020. pt. lives at home with his in handicap accessible house. he utilized slide board for transfer to manual w/c. he is being able to propel self in w/c. has IADLs provided and assist from with ADLs. Will cont following as needed for dc needs.
[2021-05-30 09:45] VITALS: BP 110/58
--- NOTE | 2021-05-30 12:55 | NUR ---
Nutrition: pt admitted with acute encephalopathy and seen due to consult stating "malnutrition". PMH: MS, lower body spastic parapesis, neurogenic bladder, HTN, SDH, craniotomy. Visited with pt. Voiced great appetite, eats 100% of meals on regular diet. Weights stable around 210# for years. 05/28 BM. On vitamin D and C, B12 supplement, colace. Low nutrition risk.
[2021-05-30 16:05] LABS: URINE BILIRUBIN NEGATIVE (Negative); URINE BLOOD 2+ (Negative); URINE CLARITY CLEAR; URINE COLOR YELLOW; URINE GLUCOSE-RANDOM* NEGATIVE (Negative); URINE KETONES NEGATIVE (Negative); URINE NITRITE-REFLEX NEGATIVE (Negative); URINE PROTEIN (DIPSTICK) NEGATIVE (Negative); URINE SPECIFIC GRAVITY 1.025 (1.005-1.035)
[2021-05-30 16:09] LABS: URINE LEUKOCYTES-REFLEX 1+ (Negative)
[2021-05-30 16:11] LABS: BACTERIA-REFLEX 1-9 Few /HPF (None Seen); CASTS None Seen /LPF (None Seen); CRYSTALS None Seen /LPF (None Seen); SQUAMOUS 4-10 Moderate /LPF (0-3); URINE WBC-REFLEX 6-15 Few /HPF (0-5)
[2021-05-30 19:27] VITALS: BP 121/51
--- NOTE | 2021-05-31 03:26 | NUR ---
assumed care approx 1900 evening 05/30. pt lying in bed with head of bed elevated at change of shift. supra-pubic catheter in place draining dark yellow urine to bag. pt took hs med sitting up with water tolerating well. assisted pt with turning and repositioning q2hrs. pt appears to be sleeping soundly. bed alarm on and call light in reach. will continue to monitor.
[2021-05-31 07:55] VITALS: BP 117/55
--- NOTE | 2021-05-31 09:04 | NUR ---
PT LYING IN BED THIS AM. PT DENIES ANY PAIN. PT LUNGS CLEAR. PT HAS SUPERPUBIC CATH THIS IS INTACT DUE TO MS NEUROGENIC BLADDER. PT URINE IS CLEAR. PT TOOK MEDS THIS AM A COUPLE SMALL PILLS AT A TIME WITHOUT ANY ISSUES. PT TRANSFERS VIA SLIDE BOARD TO CHAIR.
[2021-05-31 19:22] VITALS: BP 129/59
--- NOTE | 2021-06-01 00:17 | NUR ---
PT ASSESSMENT COMPLETED AND VSS. MEDS GIVEN ORDERED AND WELL TOLERATED. SUPERPUBIC CATH IN PLACE AND DRAINING MODERATE AMOUNT OF URINE. ASST WITH REPOSITION FOR COMFORT USING PILLOWS. BARRIER CREAM APPLIED TO RED BOTTOM. PT DENIES NEEDS. SLEEPING ON AND OFF. WILL CONTINUE TO MONITOR FREQUENTLY.
[2021-06-01 09:25] VITALS: BP 111/46
--- NOTE | 2021-06-01 09:56 | NUR ---
PT RESTED THIS AM, PER NIGHT NURSE PT DIDN'T SLEEP WELL. PT LUNGS CLEAR. PT HAS SUPER PUBIC CATH THAT HAS CLEAR YELLOW URINE IN SCHULTE, SKIN INTACT AROUND CATH INSERTION SITE. PT DENIES ANY PAIN. PT TOOK MEDS WITH WATER WITHOUT ANY ISSUES. PT IS TURN Q2HR WHILE IN BED.
[2021-06-01 19:15] VITALS: BP 109/55
--- NOTE | 2021-06-02 00:43 | NUR ---
PT ALERT AND ORIENTED X 4, SLOW TO RESPOND. SUPRAPUBIC CATH PATENT DRAINING CLEAR YELLOW URINE. PT TOOK HS MEDS WITH WATER WITHOUT DIFFICULTY. PT DENIES PAIN OR DISCOMFORT. PT DID NOT WANT TO GET OUT OF HIS CLOTHES FOR SLEEPING. BED ALARM ON FOR SAFETY. PT APPEARS TO BE SLEEPING ON HOURLY ROUNDS.
[2021-06-02 07:15] VITALS: BP 141/76
[2021-06-02 20:26] VITALS: BP 152/79
--- NOTE | 2021-06-02 23:23 | NUR ---
ASSUMED CARE OF PT AT 1910. PT IS A&OX3. IS ON ROOM AIR. DENIES PAIN IN BACK AT THIS TIME. IS STABLE. IS TURNED Q2H. IS UP WITH SLIDE BOARD ASSIST X2, GB. FALL PRECUATIONS & HOURLY ROUNDING CONTINUED THIS SHIFT. LABS & VITALS REVIEWED. PT HAS SUPRAPUBIC CATH IN PLACE. CALL LIGHT WITHIN REACH. WILL CONTINUE TO MONITOR. CURRENTLY ASLEEP.
[2021-06-03 07:15] VITALS: BP 127/69
[2021-06-03 19:25] VITALS: BP 116/49
--- NOTE | 2021-06-04 03:38 | NUR ---
assumed care approx 1900 evening 06/03. pt lying in bed resting and watching tv at change of shift. suprapubic catheter in place draining yellow urine to bag. pt took hs meds with water tolerating well. pt appears to be sleeping soundly. bed alarm on and call light in reach. will continue to monitor.
[2021-06-04 08:00] VITALS: BP 105/62
[2021-06-04 08:45] VITALS: BP 105/62
--- NOTE | 2021-06-04 15:52 | NUR ---
Pt stated that he had a BM on 06/03/21.
--- NOTE | 2021-06-04 16:27 | NUR ---
Late entry BIMS correction for admission interval: pt had mild tomoderate difficulty with word finding and expression on initial assessment on admission. 05/29/21
--- NOTE | 2021-06-04 16:49 | NUR ---
PATIENT'S BETY RODNEY CALLED FOR AN UPDATE ON HIS PROGRESS AND ASKED ABOUT HOW LONG WE ESTIMATE HE WILL STAY ON REHAB. GENERAL INFORMATION GIVEN AND SHARED PT'S PRIOR FUNCTION FOLLOWS: "I TRANSFER HIM TO THE TOILET IN THE MORNING, AND WE DON'T USE THE SLIDE BOARD FOR THAT BECAUSE IT SLIPS TOO MUCH ON THE TOILET SEAT. HE HAS PRETTY GOOD UPPER BODY STRENGTH SO WE JUST LIFT OVER. WE DO USE THE SLIDE BOARD FOR SHOWER TRANSFERS, AND TO GET INTO THE BED, BUT WE DON'T NEED IT TO GET OUT OF BED BECAUSE IT IS [place]. HE DOES MOST OF THE SLIDE BOARD TRANSFERS ON HIS OWN WITH ME THERE TO HELP IF NEEDED. i MANAGE THE SUPRAPUBIC CATHETER BAG, EMPTYING IT, AND I USED TO CHANGE TO A LEG BAG, BUT NOW WE JUST USE THE BIG OVERNIGHT BAG ALL THE TIME. HIS SPC WAS CHANGED THE WEDNESDAY BEFORE HE CAME INTO THE HOSPITAL AND IT NEEDS TO BE CHANGED EVERY 21 DAYS. I HELP HIM PUT ON HIS PANTS AND SOCKS WHILE HE IS STILL LAYING DOWN IN THE BED, THEN HE SITS UP AND PUTS HIS OWN SHIRT ON . HE SHAVES HIMSELF AND DOES HIS OWN ORAL CARE. REGARDING CAR TRANSFERS, I BROKE MY HIP NOT LONG AGO, AND I AM NOT COMFORTABLE WITH TRANSFERS IN/OUT OF THE CAR, SO I RELY ON HIS SON TO DRIVE HIM. THEY DO PRETTY WELL BETWEEN THE 2 OF THEM WITH THE CAR TRANSFERS USING THE SLIDE BOARD." NM REPORTED TO RITA, PHYSICAL THERAPIST, THAT THIS NOTE WAS ENTERED, AND TO SHARE WITH THE ID TEAM REGARDING PRIOR LEVEL OF FUNCTION AT HOME.
[2021-06-04 19:24] VITALS: BP 128/68
--- NOTE | 2021-06-04 20:43 | NUR ---
ASSUMED CARE OF PT AT 1915. PT IS A&OX3 (PERSON, TIME, PLACE). DENIES PAIN AT THIS TIME. IS ON ROOM AIR. IS STABLE. IS UP WITH 1 ASSIST, SLIDE BOARD, GAIT BELT TO CHAIR. FALL PRECAUTIONS & HOURLY ROUNDING CONTINUED THIS SHIFT. LABS & VITALS REVIEWED. PT IS TURNED WITH MIN ASSIST Q2H. HEELS OFF LOADED. HAS SUPRAPUBIC CATH IN PLACE. IS CURRENTLY WATCHING TV IN BED. CALL LIGHT WITHIN REACH. ALARM ON. WILL CONTINUE TO MONITOR.
[2021-06-05 05:58] LABS: ABSOLUTE NEUTROPHILS 4.1 thou/uL (1.4-8.2); BASOPHILS 0.7 % (0.0-2.0); EOSINOPHILS 0.1 % (0.0-3.0); HEMATOCRIT 41.1 % (42.0-52.0); LYMPHOCYTES 21.6 % (24.0-44.0); MCH 30.5 pg (26.0-34.0); MCV 89.8 fL (80.0-100.0); MONOCYTES 6.5 % (1.0-8.0); PLATELET COUNT 187 thou/uL (150-400); POLYS 71.1 % (36.0-66.0); RBC 4.58 mil/uL (4.50-6.00); RDW 13.6 % (10.5-14.5); WBC 5.8 thou/uL (4.0-11.0)
[2021-06-05 06:06] LABS: CALCIUM 8.5 mg/dL (8.5-10.1); CREATININE 1.1 mg/dL (0.7-1.3); MAGNESIUM 1.6 mg/dL (1.8-2.4)
[2021-06-05 08:00] VITALS: BP 110/56
--- NOTE | 2021-06-05 09:10 | NUR ---
PT SITTING UP IN W/C WORKING WITH THERAPY. PT ABLE TO TAKE MEDS PO WITHOUT ANY ISSUES. PT LUNGS CLEAR. PT HAS SUPER PUBIC CATH WITH CLEAR YELLOW URINE. PT USE SLIDE BOARD WITH ASSIST FOR TRANSFERS. PT IS TURN Q2HR WHILE IN BED.
--- NOTE | 2021-06-05 12:41 | NUR ---
Team meeting, recommendation: Dc 06/06 with [facility] ( pt, ot, nursing). No dme
[2021-06-05 19:38] VITALS: BP 136/70
--- NOTE | 2021-06-05 22:21 | NUR ---
ASSUMED CARE OF PT AT 1915. PT IS A&OX3. IS ON ROOM AIR. DENIES PAIN. IS STABLE. IS UP WITH SLIDE BOARD ASSIST, GB, TRANSFER. FALL PRECAUTIONS & HOURLY ROUNDING CONTINUED THIS SHIFT. LABS & VITALS REVIEWED. PT IS Q2H TURN WITH MIN ASSIST. HEELS OFF LOADED. SUPRAPUBIC CATH INTACT. PT IS IN BED, WATCHING TV. CALL LIGHT WITHIN REACH. WILL CONTINUE TO MONITOR.
--- NOTE | 2021-06-06 08:53 | NUR ---
Nutrition followup: pt continues on rehab unit, D/C delayed from today to 06/09 due to issues with transportation home. Pt continues to eat 75-100% of most meals on regular diet. BM 06/04. On vitamin D, C, B12 supplements. No weight taken since admit. Low nutrition risk.
--- NOTE | 2021-06-06 10:36 | NUR ---
PT SITTING UP IN WHEELCHAIR. PT WAS TRANSFERED TO BED VIA SLIDE BOARD AND WORKING WITH PT. PT IS TURNING SELF IN BED WITHOUT OUT ANY ASSISTANCE, PT IS SLOW TO MOVEING. PT KELLEE TO SIT UP IN BED WITH CONTACT GUARD. PT DENIES ANY PAIN. PT SUPERPUBIC CATH INTACT WITH YELLOW URINE. PT TOOK A FEW PILL AT A TIME WITHOUT ANY PROBLEMS. PT IS SLOW TO ANSWER QUESTIONS.
[2021-06-06 19:15] VITALS: BP 141/42
--- NOTE | 2021-06-07 00:10 | NUR ---
PT ALERT AND ORIENTED X 4. SUPRAPUBIC CATH INTACT WITH CLEAR YELLOW URINE. PT TAKES MEDS WITH WATER WITHOUT DIFFICULTY. MELATONIN GIVEN AT HS FOR SLEEP. PT DENIES PAIN OR DISCOMFORT. BED ALARM ON FOR SAFETY. PT APPEARS TO BE SLEEPING ON HOURLY ROUNDS.
[2021-06-07 07:15] VITALS: BP 109/55
--- NOTE | 2021-06-07 17:24 | NUR ---
PTS CAME TO VISIT PT TODAY. PTS BEEN PLEASANTLY WATCHING TV TODAY. PT DID HAVE AN INCONTINENT BM AND PT HAD PLAYED IN IT AND HAD IT ALL OVER HIMSELF AND UNDER HIS FINGERNAILS.
[2021-06-07 18:54] VITALS: BP 137/60
--- NOTE | 2021-06-08 03:43 | NUR ---
assumed care approx 1899 evening 06/07. pt lying in bed with head of bed elevated at change of shift. suprapubic catheter in place intact. pt took hs meds with water tolerating well. pt assisted with turning and repositioning. pt appears to be sleeping soundly. bed alarm on and call light in reach. will continue to monitor.
[2021-06-08 07:15] VITALS: BP 115/67
--- NOTE | 2021-06-08 15:53 | NUR ---
HELD AM LISINOPRIL D/T LOW BP. ALSO HELD COLACE D/T LOOSE BM INCONTINENT EPISODES. HAS NOT BEEN NOTIFYING STAFF WHEN STOOL INCONTINENCE OCCURS. CONTINUES TO NEED FREQUENT CUES TO STAY ON TASK.
[2021-06-08 20:03] VITALS: BP 129/73
--- NOTE | 2021-06-09 05:18 | NUR ---
ASSUMED CARE AT 1900 OF 06/08. PATIENT IS A&OX3, DENIES PAIN OR SHORTNESS OF BREATH. MINIMAL ASSIST WITH TRANSFER FROM W/C TO BED USING SLIDE BOARD. SUPRAPUBIC CATHETER IN PLACE AND INTACT, DRAINING CLEAR YELLOW URINE. TOLERATED ORAL MEDS WHOLE WITH THIN LIQUIDS. PRN MELATONIN ADMINISTERED AT HS, PATIENT IS SLEEPING ON HOURLY ROUNDS. ASSISTED WITH REPOSITIONING WITH MINIMAL ASSIST. FALL PRECAUTION IN PLACE, CALL LIGHT WITHIN REACH. WILL CONTINUE TO MONITOR.
[2021-06-09 08:00] VITALS: BP 127/71
--- NOTE | 2021-06-09 09:00 | NUR ---
PT SITTING UP IN W/C FOR BREAKFAST. PT ABLE TO FEED SELF AND USE UTENSILS WITHOUT ANY ASSISTANCE. PT LUNGS CLEAR. PT SUPERPUBIC CATH INTACT. PT REFUSED STOOL SOFTNER THIS AM. PT WAS INCON. OF STOOL 06/08. PT DENIES ANY PAIN. PT TOOK MEDS WHOLE WITH WATER. PT POSS. D/C TODAY TO HOME.
[2021-06-09 12:17] VITALS: BP 127/71
[2021-06-09] MEDS ORDERED: COLACE100 MG PO (14:42)
--- NOTE | 2021-06-09 17:20 | NUR ---
PT IS HERE TO RECEIVING WORKER PT AND NEEDING ASSISTANCE GETTING HIM INTO THE CAR. PT VERBALY UNDERSTOOD D/C ORDERS. PT FINISHED DINNER PRIOR TO LEAVING.
--- NOTE | 2021-06-09 17:40 | NUR ---
PT LEFT VIA W/C TO CAR. PT NEEDED ASSISTANCE GETTING INTO CAR. VERBALY UNDERSTOOD D/C ORDERS.
== END 2021-06-09 17:45 | disposition home or self-care (01) | DRG 71 ==
PROVIDERS: Nurse Practitioner; Nurse Practitioner Family; Specialist; ADMIT Physical Medicine & Rehabilitation; ATTEND Physical Medicine & Rehabilitation
DX: G93.41 Metabolic encephalopathy (principal); N39.0 Urinary tract infection, site not specified; E44.0 Moderate protein-calorie malnutrition; G04.1 Tropical spastic paraplegia; N31.9 Neuromuscular dysfunction of bladder, unspecified; M19.90 Unspecified osteoarthritis, unspecified site; F03.90 Unspecified dementia, unspecified severity, without behavioral disturbance, psychotic disturbance, mood disturbance, and anxiety; I10 Essential (primary) hypertension; R53.81 Other malaise; R13.10 Dysphagia, unspecified; F32.9 Major depressive disorder, single episode, unspecified; G40.909 Epilepsy, unspecified, not intractable, without status epilepticus; G35 Multiple sclerosis; R48.2 Apraxia; Z88.8 Allergy status to other drugs, medicaments and biological substances; Z90.49 Acquired absence of other specified parts of digestive tract; Z86.73 Personal history of transient ischemic attack (TIA), and cerebral infarction without residual deficits; Z79.82 Long term (current) use of aspirin; Z79.899 Other long term (current) drug therapy; Z68.27 Body mass index [BMI] 27.0-27.9, adult; Z99.3 Dependence on wheelchair
CPT/HCPCS: 10112

== ENCOUNTER 2021-06-25 12:30 | Inpatient (IN) | payer OTHER, BC ==
[~2021-06-25] VITALS: Ht 185.4 cm; Wt 99.8 kg
--- NOTE | ~2021-06-25 | EMS ---
[address] [address] EMS Patient Care Report Name: ZBIGNIEW COREA Room #: REG TOBI Smith#: [id number] Admission: 06/25/21 Attend Phys: Discharge: Date of : 41 Report #: [id number] THIS REPORT FOR: //name// Report Transmitted: 06/25/2021 12:53 EMS Care Summary [facility] Incident [id number] @ 06/25/2021 11:31 Incident Location [address] [place] [address] Patient EMRE COREA Male, 75 Years 1945 Patient Address [address] [place] [address] Patient History Diabetes,Hypertension (HTN),Multiple Sclerosis, Patient Allergies Other drug allergy, Chief Complaint Altered mental status Disposition Transported No Lights/[place] Dis[place] Reason Unconscious/Fainting Transported To [facility] Narrative D- [id number] is dispatched to an unconscious pt. C- EMS arrives to find 75 year old male laying supine on his bed. The pt is not alert or oriented, he responds with his eyes to verbal stimuli. The pt has a CC of AMS. [address] [address] EMS Patient Care Report Name: ZBIGNIEW COREA JR Room #: REG TOBI Smith#: [id number] Admission: 06/25/21 Attend Phys: Discharge: Date of : 41 Report #: [id number] H- The reports that the pt went to bed at 20:00 last night and woke up with AMS. The reports that the pt is normally alert and orientated. She states that today she tried several times this morning to arose the pt, but had no response in doing so. She states that she found him with blood in his mouth. She was unsure if he hit his mouth on the railing on his bed or if he had a seizure. The states that the pt did not complain of anything the night before. She reports that the color of his urine in his turk bag is normal for him. She denies the pt having any recent GI symptoms or respiratory symptoms. She states "I just know something is wrong with him, and want him checked out." A- See assessment tab Tx- Vitals, 12 lead, and vascular access attempt. T- The pt is covered in feces and pt is cleaned up by EMS. The pt is sheet lifted from the bed onto the stretcher. While moving the pt, he did not show any signs of grimace. While en route to the hospital the pt would spontaneously move his lower extremities. The pt would not follow commands while en route. The pt remained stable and his disposition did not change. The pt is transferred to housekeeping staff at [place] to room 6. 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,BP: 128/62 M,PULSE: 90,RR: 12 R,SPO2: Ox,ETCO2: ,BG: ,PAIN: 0,GCS: 10, 11:29,Call Received 11:29,Psap Call 11:31,Dispatched [address] [address] EMS Patient Care Report Name: ZBIGNIEW COREA [id number] Admission: 06/25/21 Attend Phys: Discharge: Date of : 41 Report #: [id number] 11:31,En Route 11:38,On Scene 11:39,At Patient 11:39,ALS Assessment,Response: UnchangedSucceeded, 11:40,Surgical Mask on Patient,Response: Unchanged 11:42,12-Lead ECG,Response: UnchangedSucceeded, 11:42,BP: / M,PULSE: 88,RR: R,SPO2: 94 Ox,ETCO2: ,BG: ,PAIN: ,GCS: , 11:45,IV Therapy - Saline Lock 0cc 20 ga Site: Hand-Right,Response: UnchangedFailed, 11:46,IV Therapy - Saline Lock 0cc 20 ga Site: Hand-Left,Response: UnchangedFailed, 12:09,BP: 134/73 M,PULSE: 88,RR: R,SPO2: 96 Ox,ETCO2: ,BG: ,PAIN: ,GCS: , 12:09,Depart Scene 12:23,BP: 121/76 M,PULSE: 94,RR: R,SPO2: 97 Ox,ETCO2: ,BG: ,PAIN: ,GCS: , 12:25,At Destination 12:52,Call Closed Disclaimer v1.1 Copyright 2021 [employer] This EMS Care Summary contains data elements from the applicable legal record (which may be displayed differently). It is designed to provide pertinent information for the following purposes: continuity of care, clinical quality, and state data reporting. The complete legal record is available to ED staff and administrators of the receiving hospital in [employer]'s Patient Tracker. All data is provided "as is."
[2021-06-25 12:30] VITALS: BP 122/78
[2021-06-25 12:59] LABS: ABSOLUTE NEUTROPHILS 7.7 thou/uL (1.4-8.2); BASOPHILS 0.3 % (0.0-2.0); EOSINOPHILS 0.3 % (0.0-3.0); HEMATOCRIT 49.9 % (42.0-52.0); HEMOGLOBIN 16.8 gm/dL (14.0-18.0); LYMPHOCYTES 10.2 % (24.0-44.0); MCH 30.5 pg (26.0-34.0); MCHC 33.6 g/dL (28.0-37.0); MCV 90.7 fL (80.0-100.0); MONOCYTES 9.5 % (1.0-8.0); PLATELET COUNT 157 thou/uL (150-400); POLYS 79.7 % (36.0-66.0); RDW 14.3 % (10.5-14.5); WBC 9.6 thou/uL (4.0-11.0)
[2021-06-25 13:08] LABS: URINE BILIRUBIN NEGATIVE (Negative); URINE BLOOD 1+ (Negative); URINE COLOR YELLOW; URINE GLUCOSE-RANDOM* NEGATIVE (Negative); URINE KETONES NEGATIVE (Negative); URINE PROTEIN (DIPSTICK) NEGATIVE (Negative); URINE SPECIFIC GRAVITY >= 1.030 (1.005-1.035); URINE UROBILINOGEN 0.2 E.U./dl (0.2-1.0)
[2021-06-25 13:14] LABS: URINE CLARITY HAZY; URINE LEUKOCYTES-REFLEX 2+ (Negative); URINE NITRITE-REFLEX POSITIVE (Negative)
[2021-06-25 13:18] LABS: CALCIUM 9.5 mg/dL (8.5-10.1); CREATININE 1.6 mg/dL (0.7-1.3); POTASSIUM 4.3 mmol/L (3.5-5.1)
[2021-06-25 13:22] LABS: ALBUMIN 3.9 g/dL (3.4-5.0); TOTAL BILIRUBIN 0.8 mg/dL (0.2-1.0); TOTAL PROTEIN 8.1 g/dL (6.4-8.2)
[2021-06-25 13:23] LABS: CASTS None Seen /LPF (None Seen); MUCUS 4-6 Moderate strn/LPF (None Seen); SQUAMOUS 0-3 Few /LPF (0-3)
[2021-06-25 13:24] LABS: BACTERIA-REFLEX >30 Many /HPF (None Seen); CRYSTALS None Seen /LPF (None Seen); URINE RBC 1-2 Rare /HPF (NONE SEEN); URINE WBC-REFLEX 6-15 Few /HPF (0-5)
[2021-06-25 18:39] VITALS: BP 152/73
[2021-06-25 20:14] VITALS: BP 169/75
[2021-06-25 21:07] VITALS: BP 169/75
[2021-06-25 21:40] VITALS: BP 144/76
[2021-06-26 02:30] LABS: HEMATOCRIT 44.3 % (42.0-52.0); HEMOGLOBIN 14.9 gm/dL (14.0-18.0); MCHC 33.7 g/dL (28.0-37.0); MCV 92.1 fL (80.0-100.0); RBC 4.81 mil/uL (4.50-6.00); RDW 14.5 % (10.5-14.5); WBC 8.1 thou/uL (4.0-11.0)
[2021-06-26 03:26] VITALS: BP 123/64
[2021-06-26 03:26] LABS: CALCIUM 8.4 mg/dL (8.5-10.1); CREATININE 1.2 mg/dL (0.7-1.3); POTASSIUM 3.9 mmol/L (3.5-5.1)
--- NOTE | 2021-06-26 04:25 | NUR ---
RECEIVED PATIENT FROM THE EMERGENCY AROUND 2134H.ADMISSION HISTORY DONE BUT WITH LIMITED INFORMATION PATIENT IS NON VERBAL AT THIS TIME.ASSESSMENT DONE CHARTED.MEDS GIVEN PER AUG.SINUS RYTHM ON THE MONITOR.WITH SUPRAPUBIC CATHETER INTACT.TURNING DONE.ALL NEEDS ATTENDED.TO CONTINOUSLY MONITOR.
[2021-06-26 07:15] VITALS: BP 124/59
--- NOTE | 2021-06-26 07:44 | HC ---
Formerly [facility] [place] [address] CONSULTATION Name: ZBIGNIEW COREA JR Room #: 203-P ADM IN M.R.#: [id number] Admission: 06/25/21 Attend Phys: Jesu Reid MD Discharge: Date of : 41 Report #: [id number] THIS REPORT FOR: cc: Shweta Shanks MD, Jennifer L MD Barry,Juliano Sellers MD ~ DATE OF SERVICE: 06/25/2021 INFECTIOUS DISEASE CONSULTATION ATTENDING PHYSICIAN: Dr. Reid. REASON FOR EVALUATION: Complicated urinary tract infection, longstanding indwelling Jordan catheter, complicated by severe encephalopathy. HISTORY OF PRESENT ILLNESS: Chart reviewed. The patient examined. This is a 75-year-old gentleman known to myself, has longstanding history of disability with multiple sclerosis, history of stroke, who has a long indwelling suprapubic catheter. He is at risk for recurrent urinary tract infections. He was last seen in the hospital in mid May with the same. On presentation, he was noted to be quite encephalopathic. Indeed, he is at this point clearly not able to interact, although his eyes are open. Additional testing showed marked pyuria and bacteriuria. Chest x-ray, no acute process. Coronavirus testing was negative. Lactic acid 1.6. He was found to have low-grade temperature elevation and otherwise fairly hemodynamically stable. He was initiated on therapy with ceftriaxone. Review of previous culture results were unrevealing in May. In October of last year did have polymicrobial growth including pseudomonas, Klebsiella and Enterococcus. ALLERGIES: NOTED TO BACLOFEN, WHICH CAUSES CONFUSION, MORE TYPICAL ADVERSE DRUG EFFECT. CURRENT MEDICATIONS: Include aspirin, ceftriaxone, famotidine, enoxaparin, p.r.n. analgesics, antiemetics. PAST MEDICAL HISTORY: As described above, history of MS with significant paraparesis, hypertension, previous stroke, seizure disorder, neurogenic bladder, recurrent urinary tract infections. SOCIAL HISTORY: Nonsmoker, occasional ethanol, no illicit drug use. FAMILY HISTORY: Noncontributory. REVIEW OF SYSTEMS: Not obtainable. PHYSICAL EXAMINATION: Formerly [facility] [address] [address] CONSULTATION Name: ZBIGNIEW COREA Room #: 203-P [facility] [place] [facility].#: [id number] Admission: 06/25/21 Attend Phys: Jesu Reid MD Discharge: Date of : 41 Report #: [id number] GENERAL: He is chronically ill. He is not overtly distressed. In fact, his eyes are open, although he is not responsive to any sort of verbal stimuli. VITAL SIGNS: Temperature 99.3, pulse 80, respirations 14, blood pressure 115/49. SKIN: Warm, dry, no rashes. HEENT: Normocephalic. NECK: Decreased range of motion about the cervical spine. LUNGS: Diminished breath sounds. HEART: Regular. I do not appreciate a murmur. ABDOMEN: Slightly distended, mildly firm. No overt peritoneal signs. A suprapubic catheter in place. There is no evidence of cellulitic process. GENITOURINARY AND RECTAL: Deferred. LABORATORY DATA: Lactic acid 1.6. Electrolytes: Sodium 142, potassium 4.3, chloride 105, bicarbonate is 27, anion gap of 10, BUN and creatinine 31 and 1.6, AST of 43, ALT of 63, albumin of 3.9, total protein of 8.1. Urinalysis: 6-15 white cells, greater than [address] of the head shows atrophy, small vessel ischemic changes. Cystic encephalomalacia, right frontal lobe. No acute process. CBC: White count of 9.6, H and H of 16.8 and 49.9, platelets of 157. Coronavirus testing was negative. Chest x-ray, no acute process. ASSESSMENT AND PLAN: Suspected complicated urinary tract infection in the setting of chronic suprapubic catheter due to neurogenic bladder. The patient with MS and paraplegia, this has been complicated by encephalopathy. This is a recurrent pattern. We will continue empiric antibiotics to cover atypical pathogens. He has been on recent therapy including cefepime, difficult to ascertain if indeed encephalopathy is primarily due to the UTI or if it is multifactorial issue. See how he does clinically over the next 24 hours, could consider a lumbar puncture as well. <ELECTRONICALLY SIGNED> By: Juliano Vieira MD 06/26/21 0744 1618 [id number] Juliano Vieira MD /nt
--- NOTE | 2021-06-26 08:44 | EKG ---
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 : 1945 Requested By: Lalo Edward Order Number: [id number] MD: Fred Reeder Measurements Intervals [place] Rate: 86 P: 54 SD: 196 QRS: -62 QRSD: 102 T: 90 QT: 387 QTc: 463 Interpretive Statements Sinus rhythm Probable left atrial enlargement Left anterior fascicular block Abnormal R-wave progression, early transition Compared to ECG 05/25/2021 13:41:11 Sinus tachycardia no longer present ST (T wave) deviation no longer present Electronically Signed On 06-26-2021 8:43:37 LOG HAUL OPERATOR by Fred Reeder [email or web address] <ELECTRONICALLY SIGNED> By: Fred Reeder MD, FACC 06/26/21 0843 1425 1425 Fred Reeder MD, [facility] /EPI
[2021-06-26 11:00] VITALS: BP 110/60
[2021-06-26 16:00] VITALS: BP 130/89
--- NOTE | 2021-06-26 16:42 | NUR ---
PATIENT ADMITTED FOR ENCEPHALOPATHY; UTI. CHART REVIEWED AND DISCUSSED WITH CARE TEAM. PATIENT NONVERBAL AT THIS TIME. RECENTLY DC'D IN MAY AFTER SEVERAL STAY ON REHAB UNIT. AWAITING PSYCH RECOMMENDATIONS. DC PLANNING MAY ARRANGE LTC. CM WILL REVIEW THERAPY RECOMMENDATIONS AND DISCUSS WITH CARE TEAM FOR FURTHER DC PLANNING. CM FOLLOWING.
[2021-06-26 20:27] VITALS: BP 140/64
[2021-06-27 03:13] VITALS: BP 144/68
--- NOTE | 2021-06-27 06:00 | NUR ---
Pt. rested quietly during the night when checked on during frequent rounds. He has been non-verbal, but will open his eyes. He also had seizure like activity times two during the night that lasted less than 30 seconds. HIs left arm will raise up and start to shake along with focal movement. Con't on iv Keppra. Bedrails are padded. Pt. turned and repositioned. Bed alarm j is on.
[2021-06-27 07:15] VITALS: BP 142/77
[2021-06-27 11:00] VITALS: BP 138/73
[2021-06-27 16:00] VITALS: BP 144/78
[2021-06-27 20:15] VITALS: BP 149/60
--- NOTE | 2021-06-28 01:26 | NUR ---
ASSESSMENTS CHARTED, MEDS CHARTED GIVEN. PATIENT HAD TWO WITNESSED SEIZURES. HAD CXR TO CHECK FOR ASPIRATION. PATIENT FEBRILE. CONSULT PLACED FOR DR. BOYD TO SEE PATIENT IN MORNING. CONTINUE CARE.
[2021-06-28 03:45] LABS: CALCIUM 8.6 mg/dL (8.5-10.1); CREATININE 1.3 mg/dL (0.7-1.3); POTASSIUM 3.5 mmol/L (3.5-5.1)
--- NOTE | 2021-06-28 04:29 | NUR ---
PATIENT HAD ANOTHER WITNESSED SEIZURE FIRST NOTICED ON THE TELEMETRY SCREEN EXCESS NOISE. WHEN I LOOKED BACK OVER THE TELEMETRY RECORD FOR THE SHIFT, HE HAS HAD 19 OTHER EXCESS NOISE EPISODES THAT LOOK LIKE THE ONE HAPPENING DURING THE SEIZURE. 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
[2021-06-28 04:45] VITALS: BP 119/66
[2021-06-28 08:00] VITALS: BP 149/60
[2021-06-28 13:03] VITALS: BP 126/68
[2021-06-28 15:55] VITALS: BP 103/54
[2021-06-28 23:45] VITALS: BP 129/59
--- NOTE | 2021-06-29 01:22 | NUR ---
ASSESSMENTS CARTED, MEDS CHARTED GIVEN. PATIENT WAS AWAKE WHEN I ENTERED THE ROOM, MADE EYE CONTACT. ORIENTED HIM TO SITUATION. PATIENT WAS ABLE TO SAY HIS FIRST NAME, ABLE TO SQUEEZE MY HAND WHEN ASKED. ON MAINTENANCE FLUIDS, AFEBRILE DURING SHIFT. ON SEIZURE PRECAUTIONS. CONTINUE CARES.
[2021-06-29 04:45] VITALS: BP 114/66
[2021-06-29 09:30] LABS: HEMATOCRIT 41.1 % (42.0-52.0); HEMOGLOBIN 13.6 gm/dL (14.0-18.0); MCH 30.5 pg (26.0-34.0); MCHC 33.1 g/dL (28.0-37.0); MCV 92.1 fL (80.0-100.0); RBC 4.46 mil/uL (4.50-6.00); RDW 14.2 % (10.5-14.5)
[2021-06-29 09:44] LABS: ALBUMIN 2.6 g/dL (3.4-5.0); CALCIUM 8.4 mg/dL (8.5-10.1); MAGNESIUM 2.3 mg/dL (1.8-2.4); POTASSIUM 3.5 mmol/L (3.5-5.1); TOTAL BILIRUBIN 1.5 mg/dL (0.2-1.0); TOTAL PROTEIN 6.3 g/dL (6.4-8.2)
--- NOTE | 2021-06-29 11:10 | NUR ---
TOOK OVER CARE OF THIS PATIENT AT 0700. BEDSIDE SHIFT REPORT GIVEN. PT RESTING IN BED AT THIS TIME. SEIZURE PRECAUTIONS IN PLACE. NO SEIZURE ACTIVITY WITNESSED BY THIS NURSE. PT ABLE TO STATE NAME; AXOX1; ABLE TO SQUEEZE RIGHT HAND AND MOVE RIGHT TOES BUT NOT ON LEFT SIDE. ASSESSMENTS CHARTED. VSS. FALL PRECAUTIONS IN PLACE. NO SIGNS OF PAIN OR DISTRESS. WILL CONTINUE TO MONITOR.
--- NOTE | 2021-06-29 15:37 | NUR ---
A #4F MIDLINE WAS PLACED PER HOSPITAL POLICY FOR ADDITIONAL IV ACCESS FOR PPN.
--- NOTE | 2021-06-29 16:35 | NUR ---
THIS NURSE STARTED PPN PER DOCTORS ORDERS. MIDLINE PLACED BY IV TEAM IN UPPER LEFT ARM. PPN INFUSING PER DOCTORS ORDERS. WILL CONTINUE TO MONITOR.
[2021-06-29 20:15] VITALS: BP 137/63
[2021-06-30 04:45] VITALS: BP 154/94
[2021-06-30 04:46] LABS: CALCIUM 8.3 mg/dL (8.5-10.1); CREATININE 0.9 mg/dL (0.7-1.3); MAGNESIUM 2.2 mg/dL (1.8-2.4)
[2021-06-30 04:51] LABS: HEMATOCRIT 40.7 % (42.0-52.0); HEMOGLOBIN 13.5 gm/dL (14.0-18.0); MCH 30.8 pg (26.0-34.0); MCHC 33.3 g/dL (28.0-37.0); MCV 92.4 fL (80.0-100.0); RBC 4.4 mil/uL (4.50-6.00); RDW 14.2 % (10.5-14.5); WBC 6.4 thou/uL (4.0-11.0)
[2021-06-30 04:52] LABS: POTASSIUM 3.9 mmol/L (3.5-5.1)
[2021-06-30 07:42] VITALS: BP 148/60
--- NOTE | 2021-06-30 08:04 | NUR ---
ASSESSMENTS CHARTED, MEDS CHARTED GIVEN. PATIENT MOVED FROM 203 TO 210 TO ACCOMODATE ANOTHER PATIENT NEEDING TO BE CLOSE TO THE NURSES STATION. PATIENT CONTINUES TO BECOME MORE RESPONSIVE AND ALERT. ABLE TO ANSWER QUESTIONS APPROPRIATELY. CONTINUE CARE.
[2021-06-30 11:02] VITALS: BP 148/59
--- NOTE | 2021-06-30 12:44 | 2DMMODE ---
[facility] [place] [address] 2 D/M-MODE ECHOCARDIOGRAM Name: KHOIMAGDALENOZBIGNIEW MARCIAL JR Room #: 210-P ADM IN M.R.#: [id number] Admission: 06/25/21 Attend Phys: Jesu Reid MD Discharge: Date of : 41 Report #: [id number] THIS REPORT FOR: cc: Shweta Shanks MD, Jennifer L MD Santiago, Patrick MD [facility] ~ APPROVED REPORT Study performed: 06/30/2021 11:32:08 EXAM: Comprehensive 2D, Doppler, and color-flow Echocardiogram Patient Location: Bedside Room #: 210 Status: routine BSA: 2.26 HR: 71 bpm BP: 148/60 mmHg Rhythm: NSR Other Information Study Quality: Good Indications Elevated Troponin Hypertension/HDD 2D Dimensions RVDd: 36.70 mm IVSd: 10.08 (7-11mm) LVOT Diam: 21.45 (18-24mm) LVDd: 44.70 mm PWd: 10.19 (7-11mm) Ascending Ao: 38.61 (22-36mm) LVDs: 29.65 (25-40mm) Left Atrium: 34.87 (27-40mm) Aortic Root: 34.40 mm IVC: 18.00 mm Volumes Left Atrial Volume (Systole) Single Plane 4CH: 40.58 mL Single Plane 2CH: 48.54 mL LA ESV Index: 23.00 mL/m2 Aortic Valve AoV Peak Drew.: 1.58 m/s AO Peak Gr.: 10.02 mmHg LVOT Max P.90 mmHg LVOT Max V: 1.11 m/s [facility] [address] [address] 2 D/M-MODE ECHOCARDIOGRAM Name: ZBIGNIEW COREA JR Room #: 210-P [facility] IN [facility]#: [id number] Admission: 06/25/21 Attend Phys: Jesu Reid MD Discharge: Date of : 41 Report #: [id number] Vmax: 2.52 cm2 AI Vmax: 2.77 m/s AI Caldwell: 1.30 m/s2 AI PHT: 619.19 ms Mitral Valve E/A Ratio: 1.0 MV Decel. Time: 221.65 ms MV E Max Drew.: 1.10 m/s MV A Drew.: 1.10 m/s MV PHT: 64.28 ms IVRT: 115.34 ms Pulmonary Valve PV Peak Drew.: 0.86 m/s PV Peak Gr.: 2.99 mmHg Pulmonary Vein P Vein S: 0.41 m/s P Vein A: 0.29 m/s P Vein D: 0.35 m/s P Vein A Dur.: 124.6 msec P Vein S/D Ratio: 1.17 Left Ventricle The left ventricle is normal size. There is normal LV segmental wall motion. There is normal left ventricular wall thickness. Left ventricular systolic function is normal. The left ventricular ejection fraction is within the normal range. LVEF is 60-65%. Grade II - pseudonormal filling dynamics. Right Ventricle The right ventricle is normal size. The right ventricular systolic function is normal. Atria The left atrium size is normal. The right atrium size is normal. Aortic Valve The aortic valve is normal in structure. The Aortic valve is sclerotic. Mild aortic regurgitation. There is no aortic valvular stenosis. Mitral Valve The mitral valve is normal in structure. There is no mitral valve regurgitation noted. No evidence of mitral valve stenosis. Tricuspid Valve [facility] [address] [place] [address] 2 D/M-MODE ECHOCARDIOGRAM Name: ZBIGNIEW COREA Room #: 210-P [facility] IN .R.#: [id number] Admission: 06/25/21 Attend Phys: Jesu Reid MD Discharge: Date of : 41 Report #: [id number] The tricuspid valve is normal in structure. There is no tricuspid valve regurgitation noted. Pulmonic Valve The pulmonary valve is normal in structure. Trace to mild pulmonic regurgitation. Great Vessels The aortic root is normal in size. IVC is normal in size and collapses >50% with inspiration. Pericardium There is no pericardial effusion. <Conclusion> Normal left atrial size/wall thickness and Ejection fraction 60-65% Grade 2 diastolic dysfunction Normal right ventricular size/function Normal atrial size Mild aortic valve insufficiency Normal mitral valve structure and function No tricuspid valve insufficiency No pericardial effusion Normal aortic root size <ELECTRONICALLY SIGNED> By: Fred Reeder MD, FACC 06/30/21 1244 1244 1244 Fred Reeder MD, FACC /INF
[2021-06-30 14:47] VITALS: BP 138/72
--- NOTE | 2021-06-30 16:19 | NUR ---
CHART REVIEWED AND DISCUSSED WITH CARE TEAM. CM MET WITH PT THIS DAY. PT WAS RESTING WITH EYES CLOSED. HE AWOKE BRIEFLY. CM ROLE INTRODUCED. CM ASKED PT IF WERE OKAY TO SPEAK WITH PTS FOR DC PLANNING. HE AGREED. CALLED PTS BETY RODNEY AT [phone]. NO ANSWER LM. CM WILL CONTINUE TO FOLLOW FOR DC PLANNING WHEN PT IS MEDICALLY STABLE TO DC.
[2021-06-30 19:52] VITALS: BP 135/62
[2021-07-01 03:26] LABS: HEMATOCRIT 40.2 % (42.0-52.0); HEMOGLOBIN 13.4 gm/dL (14.0-18.0); MCH 30.7 pg (26.0-34.0); MCHC 33.3 g/dL (28.0-37.0); MCV 92.3 fL (80.0-100.0); RBC 4.36 mil/uL (4.50-6.00); RDW 13.9 % (10.5-14.5); WBC 5.5 thou/uL (4.0-11.0)
[2021-07-01 03:42] VITALS: BP 148/75; BP 151/76
[2021-07-01 03:49] LABS: CALCIUM 8.2 mg/dL (8.5-10.1); CREATININE 0.9 mg/dL (0.7-1.3); MAGNESIUM 2.2 mg/dL (1.8-2.4); POTASSIUM 3.4 mmol/L (3.5-5.1)
--- NOTE | 2021-07-01 05:14 | NUR ---
assumed pt care at 1900, awake, alert and orientedx2, denies pain or sob, sr on tele, assessments as charted, remains on climex as per orders, no new needs, no events overnight, will continue to monitor per poc
--- NOTE | 2021-07-01 07:34 | NUR ---
pt arrived from er around 0620, alert and oriented, pt cleaned up, briefs soaked with pee and poop, pt bp in the 90s sytolic, wood fence installer notified, orders for maintainance fluids obtained, orders to hold cardizem was obtained as well, bp threw up large amount of unmeasured blood with blood clots, passed on report to day nurse
[2021-07-01 09:30] VITALS: BP 153/79
--- NOTE | 2021-07-01 10:48 | NUR ---
WOUND CONSULT: THE PATIENT HAS SKIN BREAKDOWN IN THE GLUTEAL FOLD/COCCYX APPROX 3 X 0.5 X 0.1 TODAY. THE LEFT HEEL HAS AN INTACT BLISTER CONSISTANT WITH A DEEP TISSUE INJURY. THE RIGHT HEEL IS SLOW TO ARUN AND IS BOGGY WHICH IS SUGGESTIVE OF A DTI. NO ACUT S/S OF INFECTION. RECOMMENDATIONS; -PRAFO BOOTS X 2 ON AT ALL TIMES. -PAINT BILATERAL HHELS WITH BETADINE. -APPLY ZGUARD TO THE GLUTEAL FOLDS,COVER WITH A LARGE SACRAL FOAM. -EMPLOY PILLOWS AND WEDGES WITH Q2H TURNING. DISCUSSED WITH RN.
[2021-07-01 12:11] VITALS: BP 138/72
--- NOTE | 2021-07-01 14:19 | NUR ---
CM SPOKE TO PTS BETY RODNEY VIA PHONE. CM EXPLAINED PROGRESS OF PT AND CONTINUED RECOMMENDATION FOR PT TO DC TO SNF ONCE MEDICALLY STABLE TO DC. PTS HAD ALOT OF QUESTIONS TO WHAT PATIENTS LIMITATIONS AND PHYSICAL OBSTACLES ARE. CM READ THROUGH PT NOTES IN ATTEMPT TO EXPLAIN PROGESS. WOULD NOT LET CM FINISH A SENTENCE WITHOUT ASKING ANOTHER QUESTION THEREFORE MAKING WHAT FELT LIKE COMPROMISED CONVERSATION. PTS EXPLAINED SHE DID NOT UNDERSTAND WHY SNF WAS BEING RECOMMENDED BECAUSE BASED ON WHAT THIS CM WAS SAYING IT SOUNDED LIKE PT WAS AT HIS BASELINE AND BECAUSE OF THAT SHE PREFERS TO TAKE HIM HOME AND CONTINUE TO CARE FOR HIM ONCE PT MEDICALLY STABLE TO SO. PTS INDICATED SHE WOULD BE UP TO SEE PT THIS AFTERNOON AND SEE HOW HE IS DOING. CM INSTRUCTED ONCE HERE, WE WILL MEET AND FURTHER DISCUSS DC PLANNING ONCE SHE HAD A CHANCE TO VISIT WITH PT. CM WILL CONTINUE TO FOLLOW.
[2021-07-01 16:24] LABS: URINE BILIRUBIN NEGATIVE (Negative); URINE BLOOD NEGATIVE (Negative); URINE CLARITY CLEAR; URINE COLOR YELLOW; URINE GLUCOSE-RANDOM* NEGATIVE (Negative); URINE KETONES NEGATIVE (Negative); URINE LEUKOCYTES-REFLEX NEGATIVE (Negative); URINE NITRITE-REFLEX NEGATIVE (Negative); URINE PROTEIN (DIPSTICK) NEGATIVE (Negative); URINE SPECIFIC GRAVITY 1.025 (1.005-1.035)
[2021-07-01 16:56] VITALS: BP 141/70
[2021-07-01 19:12] VITALS: BP 129/45
--- NOTE | 2021-07-01 19:23 | NUR ---
PT IN AND WORKED WITH PATIENT. IN TO SEE PATIENT. PATIENT ATE 100 % OF BREAKFAST AND DINNER. PATINET IS RESTING IN BED WITH CALL CHAHAL IN REACH.
[2021-07-02 02:47] LABS: HEMATOCRIT 39.9 % (42.0-52.0); HEMOGLOBIN 13.2 gm/dL (14.0-18.0); MCH 30.3 pg (26.0-34.0); MCV 91.7 fL (80.0-100.0); RBC 4.35 mil/uL (4.50-6.00); RDW 13.7 % (10.5-14.5); WBC 5.1 thou/uL (4.0-11.0)
[2021-07-02 03:09] LABS: MAGNESIUM 2.1 mg/dL (1.8-2.4)
[2021-07-02 04:09] VITALS: BP 137/62
[2021-07-02 08:00] VITALS: BP 133/77
--- NOTE | 2021-07-02 12:46 | NUR ---
discuss during los with the attending physician,. No anticipated dc today. is wanting clarification on why therapy is saying he needs post acute. BPCI. 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
[2021-07-02 20:19] VITALS: BP 136/61
[2021-07-03 04:12] VITALS: BP 132/60
[2021-07-03 05:00] LABS: HEMATOCRIT 40.6 % (42.0-52.0); HEMOGLOBIN 13.4 gm/dL (14.0-18.0); MCH 30.3 pg (26.0-34.0); MCV 91.9 fL (80.0-100.0); RBC 4.42 mil/uL (4.50-6.00); RDW 13.9 % (10.5-14.5); WBC 6.3 thou/uL (4.0-11.0)
[2021-07-03 05:05] LABS: CALCIUM 8.3 mg/dL (8.5-10.1); CREATININE 0.9 mg/dL (0.7-1.3); POTASSIUM 4.1 mmol/L (3.5-5.1)
[2021-07-03 11:46] VITALS: BP 105/51
--- NOTE | 2021-07-03 13:55 | NUR ---
Pt eating >75% as long as receives feed assist. Recommend discontinue clinimix PPN.
[2021-07-03 15:00] VITALS: BP 118/68
--- NOTE | 2021-07-03 15:30 | NUR ---
CHART REVIEWED AND DISCUSSED WITH CARE TEAM. PHYSICIAN REQUESTING PT POSSIBLY TRANSFER TO REHAB 5N ONCE MEDICALLY STABLE TO DC. CM SPOKE TO 5N LIASON WHO INDICATED REHAB FACULTY MEMBER WILL SEE PT TOMORROW. PHYSICIAN INDICATED HE SPOKE TO PTS TODAY AND ALL PARTIES AWARE OF POSSIBLE. CM WILL CONTINUE TO FOLLOW FOR DC PLANNING.
[2021-07-03 19:29] VITALS: BP 123/63
[2021-07-04 04:19] VITALS: BP 112/58
[2021-07-04 07:05] VITALS: BP 116/54
--- NOTE | 2021-07-04 11:26 | NUR ---
PATIENT HAS SPENT MOST OF THE MORNING ASLEEP. HE IS IN NO ACUTE DISTRESS AND RESPONDS TO MY QUESTIONS. DID NOT WANT TO EAT BREAKFAST BUT WILL TRY TO FEED PATIENT AT LUNCH TIME.
[2021-07-04 15:00] VITALS: BP 118/70
--- NOTE | 2021-07-04 15:10 | NUR ---
CHART REVIEWED AND DISCUSSED WITH CARE TEAM. PT REMAINS NONVERBAL AND UNABLE TO FOLLOW COMMANDS. NOT LIKELY WILL PT BE MEDICALLY STABLE TO DISCHARGE OVER THE WEEKEND. [facility]N UNABLE TO ACCEPT PT. CM AND PHYSICIAN HAD LENGHTLY CONVERSATIONS WITH PTS TO EXPLAIN SNF SERVICES. CM SENT REFERRAL TO [facility]. AWAITING ACCEPTANCE AT THIS TIME. CM WILL CONTINUE TO FOLLOW FOR DC PLANNING.
[2021-07-04 20:37] VITALS: BP 133/62
[2021-07-05 05:50] LABS: HEMATOCRIT 46.9 % (42.0-52.0); MCH 30.4 pg (26.0-34.0); MCHC 32.8 g/dL (28.0-37.0); MCV 92.7 fL (80.0-100.0); RBC 5.06 mil/uL (4.50-6.00); RDW 14.1 % (10.5-14.5); WBC 6.5 thou/uL (4.0-11.0)
[2021-07-05 05:59] LABS: HEMOGLOBIN 15.4 gm/dL (14.0-18.0)
[2021-07-05 06:01] LABS: CALCIUM 8.9 mg/dL (8.5-10.1); CREATININE 1.1 mg/dL (0.7-1.3); MAGNESIUM 2.3 mg/dL (1.8-2.4); POTASSIUM 4.3 mmol/L (3.5-5.1)
[2021-07-05 07:37] VITALS: BP 115/63
[2021-07-05 11:00] VITALS: BP 105/58
--- NOTE | 2021-07-05 17:05 | NUR ---
Patient resting in bed in no apparent distress. Denies pain. No new medical events this day. Patient remains on bedrest this day. Q2 turning enforced. Appetite is fair; needing encoragement when eating. Voices no new needs.
[2021-07-05 19:34] VITALS: BP 121/55
--- NOTE | 2021-07-06 05:48 | NUR ---
PT LYING IN BED. NO APPARENT PAIN. RESTING COMFORTABLY. FREQUENT OBSERVATION.
[2021-07-06 07:54] VITALS: BP 119/68
[2021-07-06 16:27] VITALS: BP 103/52
[2021-07-06 20:45] VITALS: BP 136/68
--- NOTE | 2021-07-07 05:50 | NUR ---
PT LETHARGIC AND LESS INTERACTIVE THAN PREVIOUS NIGHTS. Q2 TURNS PERFORMED. ORAL CARE PROVIDED. MIDLINE REMAINS IN PLACE. SUPRA-CATH PATENT WITH APPROPRIATE OUTPUT
[2021-07-07 07:54] VITALS: BP 154/94
--- NOTE | 2021-07-07 10:53 | NUR ---
A/O 1 SELF ONLY A FEW WORDS SPOKEN, ROOM AIR. WHEEL CHAIR BOUND, LEFT SIDE PAST CVA WEAKNESS, SUPRAPUBIC CATH-SETH URINE NOTED, LEFT ARM AND LEGS CONTRACTED, FEEDER, MEDS CRUSHED IN APPLE SAUCE, MECHANICAL SOFT DIET, Q 2HOUR TURN, BILATERAL LEG SCDS, SEIZURE PRECAUTIONS IN PLACE-PADDED SIDERAILS, 4 RAILS UP, O2 @ BEDSIDE. IV KEPPRA GIVEN.
[2021-07-07 11:52] VITALS: BP 105/68
[2021-07-07] MEDS ORDERED: MACROBID 100 M100 M3 PO (12:12)
[2021-07-07] MEDS ORDERED: METOPROLOL TART25 MG PO (12:12)
[2021-07-07 16:29] VITALS: BP 118/73
--- NOTE | 2021-07-07 16:54 | NUR ---
[facility] able to accept. Sp with to alert of dc to [facility]. reports she was still in process of researching [facility]. She wants referral to [facility] where patient has been in the past. Referral to [facility] for revievw. Updated phys no dc today.
[2021-07-07 19:36] VITALS: BP 137/73
--- NOTE | 2021-07-08 03:13 | NUR ---
NO ACUTE EVENTS. Q2 TURNS PERFORMED. PT WILL INTERMITENTLY ANSWER YES AND NO QUESTIONS WITH HEADSHAKES. PT HAS BEEN RESTING IN BED WITH HIS LEGS STRETCHED OUT- PREVIOUSLY REPORTED TO HAVE CONTRACTURES. PT FOLLOWS COMMANDS AND WILL MAKE MEANINGFUL MOVEMENTS AT WILL. MONAE/WOUND CARE PROVIDED. PM ORAL CARE PROVIDED.
[2021-07-08 08:32] VITALS: BP 134/71
--- NOTE | 2021-07-08 10:12 | NUR ---
ASSUMED PT CARE THIS AM. PT IS A WHEELCHAIR BOUND. PT HAS TELE MONITOR ON AND IS ON ROOM AIR. PT TOLERATED MEDICATIONS THIS AM BUT A LITTLE DROWSY. PT HAS IV SITE ON L UA MIDLINE SALINE LOCKED. PT HAS SUPRAPUBIC SCHULTE IN PLACE. PT IS ON SEIZURE PRECAUTION. PT HAS PRAFO BOOTS IN PLACE. PT IS ACCUCHECK ACHS. WILL CONTINUE TO MONITOR PT. FOLLOW POC.
--- NOTE | 2021-07-08 16:20 | NUR ---
[facility] was ready to accept patient for skilled care, However lisa called to sp with to determine what vaccine patient received. It was noted in charting that patient received the vaccine. Liason notified casemgt that patient did not received the vaccine and our documentation in [employer] is incorrect. Notfied casemgt loan supervisor. [facility] at this time accepting only vaccinated patients. When sp with she was very upset. she reports patient is not vaccinated and they do not plan to vaccinate at this time. Requested she review the faclility list and give another option. reports fine to go to [facility] spoke with [facility] no beds avail.
[2021-07-08 16:38] VITALS: BP 117/64
[2021-07-08 19:10] VITALS: BP 127/68
--- NOTE | 2021-07-09 02:40 | NUR ---
PT IS A/O X1. ABLE TO ANSWER YES/NO QUESTIONS. MEDICATIONS GIVEN PER MAR. VSS. AFEBRILE. RA. VOIDS PER SCHULTE CATHETER. NO BM THIS SHIFT. FALL AND SEIZURE PRECAUTIONS IN PLACE, CALL LIGHT IS WITHIN REACH.
[2021-07-09 05:28] VITALS: BP 139/62
[2021-07-09 08:06] VITALS: BP 138/70
--- NOTE | 2021-07-09 09:33 | NUR ---
ASSUMED PT CARE THIS AM. PT IS A FEEDER. PT HAS TELE MONITOR ON AND IS ON ROOM AIR. PT IS A WHEELCHAIR BOUND. PT IS INCONTINENT OF BOWEL AND HAS SUPRAPUBIC SCHULTE. PT HAS PRAFO BOOTS ON. GIVEN CRUSHED MEDICATIONS WITH APPLE SAUCE WITHOUT DIFFICULTIES. PER WOUND TEAM ONLY BARRIER CREAM ON SACRAL. DIFFICULTY FINDING [employer] FOR DOCUMENTATION PURPOSES THIS AM. WILL CONTINUE TO MONITOR PT. FOLLOW POC.
--- NOTE | 2021-07-09 14:31 | NUR ---
Patient accepted to [facility] they have bed avail today. wanted to inquire into [facility]. C with no beds avail. updated she is agreeable for [facility]. stretcher for [id number]. Chart copied. Notified . Updated Rn. faxed orders. no further needs
[2021-07-09 16:14] VITALS: BP 121/70
== END 2021-07-09 17:45 | DRG 871 ==
LOC: ER 12:30 → 2N 14:21 → EROBS 14:21 → 2N 21:06 → 4S 07-05 00:20
PROVIDERS: Emergency Medicine; Internal Medicine; Specialist; ADMIT Internal Medicine; ATTEND Internal Medicine
PROC: 05HF33Z Insertion of Infusion Device into Left Cephalic Vein, Percutaneous Approach (ICD-10-PCS; principal; 2021-06-29)
DX: A41.51 Sepsis due to Escherichia coli [E. coli] (principal); L89.323 Pressure ulcer of left buttock, stage 3; N17.0 Acute kidney failure with tubular necrosis; G92.8 Other toxic encephalopathy; N39.0 Urinary tract infection, site not specified; G82.20 Paraplegia, unspecified; E44.0 Moderate protein-calorie malnutrition; I69.354 Hemiplegia and hemiparesis following cerebral infarction affecting left non-dominant side; R77.8 Other specified abnormalities of plasma proteins; G35 Multiple sclerosis; Z20.822 Contact with and (suspected) exposure to COVID-19; I10 Essential (primary) hypertension; G40.909 Epilepsy, unspecified, not intractable, without status epilepticus; E86.0 Dehydration; R13.10 Dysphagia, unspecified; F32.9 Major depressive disorder, single episode, unspecified; G31.9 Degenerative disease of nervous system, unspecified; N31.9 Neuromuscular dysfunction of bladder, unspecified; R53.81 Other malaise; R25.2 Cramp and spasm; R41.0 Disorientation, unspecified; B95.2 Enterococcus as the cause of diseases classified elsewhere; M48.02 Spinal stenosis, cervical region; E66.9 Obesity, unspecified; Z68.29 Body mass index [BMI] 29.0-29.9, adult; Z90.49 Acquired absence of other specified parts of digestive tract; Z88.8 Allergy status to other drugs, medicaments and biological substances; Z79.82 Long term (current) use of aspirin; Z79.899 Other long term (current) drug therapy; Z28.21 Immunization not carried out because of patient refusal
CPT/HCPCS: 10081; 10100; 27000

== ENCOUNTER 2021-07-11 09:36 | Inpatient (IN) | payer OTHER, BC ==
[~2021-07-11] VITALS: Ht 182.9 cm; Wt 99.8 kg
--- NOTE | ~2021-07-11 | EMS ---
[facility] [address] [place] [address] EMS Patient Care Report Name: ZBIGNIEW COREA JR Room #: 170-10 ADM IN M.R.#: [id number] Admission: 07/11/21 Attend Phys: Oleg Kunz MD Discharge: Date of : 43 Report #: [id number] THIS REPORT FOR: //name// Report Transmitted: 07/12/2021 00:14 EMS Care Summary [place], [place]/[facility] Incident [id number] @ 07/11/2021 09:09 Incident Location [facility] Patient ZBIGNIEW COREA JR Male, 75 Years 1945 Patient Address Patient History Hypertension (HTN),Kidney/Renal Failure,Seizures,Urinary Tract Infection (UTI),Depression,Sepsis,Multiple Sclerosis,Dysphagia, Chief Complaint fever Disposition Transported No Lights/[place] Dispatch Reason Breathing Problem Transported To [facility] Narrative pt reported to have had fever of 100.6 last night. this AM pt fever has spiked to 105.6 axillary and pt breathing has become labored. pt has only been at facility for 2 days, admitted from [facility] after tx for sepsis. pt normal LOC is unresponsive, which he continues to be. staff had pt 02 sat of 80% on RA, they have him on a simple mask at 6L when we arrive. they have his abd,groin and armpits packed w/ ice in an attempt to help lower the fever. pt has "grunting" resp, clear but diminished. 02 changed to NRB, pt to cot, tx as listed in flow chart and transport to [facility]. report to staff on arrival rm 10. [facility] [address] [place] [address] EMS Patient Care Report Name: KHOIMAGDALENOZBIGNIEW MARCIAL JR Room #: 170-10 ADM IN M.R.#: [id number] Admission: 07/11/21 Attend Phys: Oleg Kunz MD Discharge: Date of : 43 Report #: [id number] Initial Vitals @09:32P: 141,SpO2: 84, @:21P: 144,SpO2: 82, @:25P: 142,SpO2: 86, @:22P: 144,SpO2: 83, @PTAP: 140,R: 30,BP: 85/56,GCS: 6,Temp: 105.6F,SpO2: 81,Revised Trauma: 8, @:26P: 143,R: 36,BP: 101/56,GCS: 6,Temp: 106.7F,Glucose: 233,SpO2: 87,Revised Trauma: 9, Assessments @:16MENTAL:Unresponsive,SKIN:Hot,Other,HEENT:Head/Face: No Abnormalities,LUNG SOUNDS:ABDOMEN:PELVIS//GI:Pelvis GUOther,EXTREMITIES:PULSE:NEURO: Impression Acute Respiratory Distress (Dyspnea) Procedures @: 12-Lead ECG @09:21 Stretcher Response: Unchanged @09:27 IV Therapy - Saline Lock 10cc (20 ga) Site: Hand-Right Response: UnchangedSucceeded @09:23 3-Lead ECG Response: Unchanged @09:18 Oxygen FlowRate: 15 Device: Non Re-breather Mask (NRB) Response: Improved @PTAOxygen FlowRate: 6 Device: Simple Face Mask (SFM) @09:16 ALS Assessment Response: Unchanged Timeline SYSTEM DISPATCHER,Oxygen FlowRate: 6 Device: Simple Face Mask (SFM) SYSTEM DISPATCHER,BP: 85/56 M,PULSE: 140,RR: 30 R,SPO2: 81 Ox,ETCO2: ,BG: ,PAIN: ,GCS: 6, 09:07,Call Received 09:07,Dispatch Notified 09:09,Dispatched 09:09,En Route 09:13,On Scene 09:16,At Patient 09:16,ALS Assessment,Response: Unchanged 09:18,Oxygen FlowRate: 15 Device: Non Re-breather Mask (NRB) Response: Improved 09:21,Stretcher,Response: Unchanged 09:21,BP: / M,PULSE: 144,RR: R,SPO2: 82 Ox,ETCO2: ,BG: ,PAIN: ,GCS: , 09:22,BP: / M,PULSE: 144,RR: R,SPO2: 83 Ox,ETCO2: ,BG: ,PAIN: ,GCS: , 09:23,3-Lead ECG,Response: Unchanged 09:25,12-Lead ECG, 09:25,BP: / M,PULSE: 142,RR: R,SPO2: 86 Ox,ETCO2: ,BG: ,PAIN: ,GCS: , 09:26,BP: 101/56 M,PULSE: 143,RR: 36 R,SPO2: 87 Ox,ETCO2: ,B,PAIN: ,GCS: [facility] [address] [place] [address] EMS Patient Care Report Name: ZBIGNIEW COREA JR Room #: 170-10 ADM IN .R.#: [id number] Admission: 07/11/21 Attend Phys: Oleg Kunz MD Discharge: Date of : 43 Report #: [id number] 6, 09:27,IV Therapy - Saline Lock 10cc 20 ga Site: Hand-Right,Response: UnchangedSucceeded, 09:30,Depart Scene 09:32,BP: / M,PULSE: 141,RR: R,SPO2: 84 Ox,ETCO2: ,BG: ,PAIN: ,GCS: , 09:35,At Destination 10:08,Call Closed Disclaimer v1.1 Copyright 2021 [employer] This EMS Care Summary contains data elements from the applicable legal record (which may be displayed differently). It is designed to provide pertinent information for the following purposes: continuity of care, clinical quality, and state data reporting. The complete legal record is available to ED staff and administrators of the receiving hospital in [employer] Patient Tracker. All data is provided "as is."
--- NOTE | ~2021-07-11 | EMS ---
[facility] [address] [place] [address] EMS Patient Care Report Name: ZBIGNIEW COREA JR Room #: 206-P ADM IN M.R.#: [id number] Admission: 07/11/21 Attend Phys: Oleg Kunz MD Discharge: Date of : 43 Report #: [id number] THIS REPORT FOR: //name// Report Transmitted: 07/15/2021 12:11 EMS Care Summary [place], [place]/[facility] Incident [id number] @ 07/11/2021 09:09 Incident Location [facility] Patient ZBIGNIEW COREA JR Male, 75 Years 1945 Patient Address Patient History Hypertension (HTN),Kidney/Renal Failure,Seizures,Urinary Tract Infection (UTI),Depression,Sepsis,Multiple Sclerosis,Dysphagia, Chief Complaint fever Disposition Transported No Lights/[place] Dispatch Reason Breathing Problem Transported To [facility] Narrative pt reported to have had fever of 100.6 last night. this AM pt fever has spiked to 105.6 axillary and pt breathing has become labored. pt has only been at facility for 2 days, admitted from [facility] after tx for sepsis. pt normal LOC is unresponsive, which he continues to be. staff had pt 02 sat of 80% on RA, they have him on a simple mask at 6L when we arrive. they have his abd,groin and armpits packed w/ ice in an attempt to help lower the fever. pt has "grunting" resp, clear but diminished. 02 changed to NRB, pt to cot, tx as listed in flow chart and transport to [facility]. report to staff on arrival rm 10. [facility] [address] [place] [address] EMS Patient Care Report Name: KWAMEZBIGNIEW MARCIAL Room #: 206-P ADM IN M.R.#: [id number] Admission: 07/11/21 Attend Phys: Oleg Kunz MD Discharge: Date of : 43 Report #: [id number] Initial Vitals @09:32P: 141,SpO2: 84, @09:21P: 144,SpO2: 82, @:25P: 142,SpO2: 86, @09:22P: 144,SpO2: 83, @PTAP: 140,R: 30,BP: 85/56,GCS: 6,Temp: 105.6F,SpO2: 81,Revised Trauma: 8, @09:26P: 143,R: 36,BP: 101/56,GCS: 6,Temp: 106.7F,Glucose: 233,SpO2: 87,Revised Trauma: 9, Assessments @09:16MENTAL:Unresponsive,SKIN:Other,Hot,HEENT:Head/Face: No Abnormalities,LUNG SOUNDS:ABDOMEN:PELVIS//GI:Pelvis GUOther,EXTREMITIES:PULSE:NEURO: Impression Acute Respiratory Distress (Dyspnea) Procedures @: 12-Lead ECG @09:21 Stretcher Response: Unchanged @09:27 IV Therapy - Saline Lock 10cc (20 ga) Site: Hand-Right Response: UnchangedSucceeded @09:23 3-Lead ECG Response: Unchanged @09:18 Oxygen FlowRate: 15 Device: Non Re-breather Mask (NRB) Response: Improved @PTAOxygen FlowRate: 6 Device: Simple Face Mask (SFM) @09:16 ALS Assessment Response: Unchanged Timeline DIRECTOR OF GRADUATE MEDICAL EDUCATION,Oxygen FlowRate: 6 Device: Simple Face Mask (SFM) DIRECTOR OF GRADUATE MEDICAL EDUCATION,BP: 85/56 M,PULSE: 140,RR: 30 R,SPO2: 81 Ox,ETCO2: ,BG: ,PAIN: ,GCS: 6, 09:07,Call Received 09:07,Dispatch Notified 09:09,Dispatched 09:09,En Route 09:13,On Scene 09:16,At Patient 09:16,ALS Assessment,Response: Unchanged 09:18,Oxygen FlowRate: 15 Device: Non Re-breather Mask (NRB) Response: Improved 09:21,Stretcher,Response: Unchanged 09:21,BP: / M,PULSE: 144,RR: R,SPO2: 82 Ox,ETCO2: ,BG: ,PAIN: ,GCS: , 09:22,BP: / M,PULSE: 144,RR: R,SPO2: 83 Ox,ETCO2: ,BG: ,PAIN: ,GCS: , 09:23,3-Lead ECG,Response: Unchanged 09:25,12-Lead ECG, 09:25,BP: / M,PULSE: 142,RR: R,SPO2: 86 Ox,ETCO2: ,BG: ,PAIN: ,GCS: , 09:26,BP: 101/56 M,PULSE: 143,RR: 36 R,SPO2: 87 Ox,ETCO2: ,B,PAIN: ,GCS: [facility] [address] [place] [address] EMS Patient Care Report Name: ZBIGNIEW COREA JR Room #: 206-P ADM IN M.R.#: [id number] Admission: 07/11/21 Attend Phys: Oleg Kunz MD Discharge: Date of : 43 Report #: [id number] 6, 09:27,IV Therapy - Saline Lock 10cc 20 ga Site: Hand-Right,Response: UnchangedSucceeded, 09:30,Depart Scene 09:32,BP: / M,PULSE: 141,RR: R,SPO2: 84 Ox,ETCO2: ,BG: ,PAIN: ,GCS: , 09:35,At Destination 10:08,Call Closed Disclaimer v1.1 Copyright 2021 [employer] This EMS Care Summary contains data elements from the applicable legal record (which may be displayed differently). It is designed to provide pertinent information for the following purposes: continuity of care, clinical quality, and state data reporting. The complete legal record is available to ED staff and administrators of the receiving hospital in [employer]'s Patient Tracker. All data is provided "as is."
[~2021-07-11 09:36] MED LIST changes: +MACROBID 100 M100 M3 PO; +METOPROLOL TART25 MG PO
[2021-07-11 09:37] VITALS: BP 106/57
[2021-07-11 09:54] LABS: BE(vivo) -2.4 mmol/L (-2 to +3); HCO3 19.1 mmol/L (22.0-26.0); pH 7.467 (7.360-7.450); sO2 92.1 % (92.0-98.0)
[2021-07-11 09:54] LABS: ABSOLUTE NEUTROPHILS 13.2 thou/uL (1.4-8.2); BASOPHILS 0.5 % (0.0-2.0); HEMATOCRIT 55.2 % (42.0-52.0); HEMOGLOBIN 18.1 gm/dL (14.0-18.0); LYMPHOCYTES 9.3 % (24.0-44.0); MCH 30.3 pg (26.0-34.0); MCHC 32.9 g/dL (28.0-37.0); MONOCYTES 5.9 % (1.0-8.0); PLATELET COUNT 404 thou/uL (150-400); POLYS 84.3 % (36.0-66.0); RDW 14.7 % (10.5-14.5); WBC 15.6 thou/uL (4.0-11.0)
[2021-07-11 10:02] LABS: CALCIUM 9.5 mg/dL (8.5-10.1); CREATININE 3.9 mg/dL (0.7-1.3); POTASSIUM 4.9 mmol/L (3.5-5.1)
[2021-07-11 10:08] LABS: TOTAL BILIRUBIN 1.2 mg/dL (0.2-1.0)
[2021-07-11 10:16] LABS: URINE BLOOD 2+ (Negative); URINE CLARITY CLOUDY; URINE COLOR YELLOW; URINE GLUCOSE-RANDOM* NEGATIVE (Negative); URINE KETONES TRACE (Negative); URINE PROTEIN (DIPSTICK) 2+ (Negative); URINE SPECIFIC GRAVITY >= 1.030 (1.005-1.035)
[2021-07-11 10:17] LABS: ICTOTEST (BILI CONFIRMATORY) Negative (Negative); URINE BILIRUBIN NEGATIVE (Negative); URINE LEUKOCYTES-REFLEX 1+ (Negative); URINE NITRITE-REFLEX POSITIVE (Negative)
[2021-07-11 10:27] LABS: AMORPHOUS URATES Moderate /LPF (None Seen); CASTS None Seen /LPF (None Seen); SQUAMOUS None Seen /LPF (0-3); URINE RBC 3-10 Few /HPF (NONE SEEN); URINE WBC-REFLEX 6-15 Few /HPF (0-5)
[2021-07-11 12:47] LABS: BE(vivo) -7.4 mmol/L (-2 to +3); HCO3 16.7 mmol/L (22.0-26.0); PCO2 31.1 mmHg (35.0-45.0); PO2 78.3 mmHg (80.0-100.0); pH 7.348 (7.360-7.450); sO2 95.2 % (92.0-98.0)
[2021-07-11 13:03] LABS: APTT 27.6 Seconds (24.5-32.8); INR 1.29; PROTIME 13.9 Seconds (10.5-12.1)
--- NOTE | 2021-07-11 13:39 | EKG ---
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 : 1945 Requested By: Oleg Kunz Order Number: [id number] MD: Fred Reeder Measurements Intervals [place] Rate: 140 P: 26 MO: 136 QRS: -64 QRSD: 110 T: 107 QT: 280 QTc: 427 Interpretive Statements Sinus tachycardia Abnormal R-wave progression, early transition Repolarization abnormality, prob rate related Baseline wander in lead(s) V1,V3 Compared to ECG 06/25/2021 14:25:25 Early repolarization now present Sinus rhythm no longer present Electronically Signed On 07-11-2021 13:39:36 SKI EDGE PAINTER by Fred Reeder [email or web address] <ELECTRONICALLY SIGNED> By: Fred Reeder MD, FAC 07/11/21 1339 0937 0937 Fred Reeder MD, [facility] /EPI
[2021-07-11 14:16] LABS: FIBRINOGEN > 860 mg/dL (201-437)
--- NOTE | 2021-07-11 15:15 | NUR ---
vascular access consult for central line placement. Consent signed and time out preformed prior to start with Abdon GREWAL. 6 FR triple lumen right IJ placed without difficulty. Patient tolerated well. Flushes and draws well. Guidewire removed intact. Chest x-ray to confirm placement. Positive bilateral lung slide post-insertion. Okay to use central line.
--- NOTE | 2021-07-11 16:17 | NUR ---
PT ADMITTED RELATED TO AMS, UTI, RAMU, ANS SEPTIC SHOCK. CM REVIEWED CHART AND SPOKE WITH CARE TEAM. PT HAD [facility]CHARG[facility] 07/09/21 TO [facility]. CM CALLED AND SPOKR WITH PT'S SPOUSE. SHE INDICATED THAT PTIOT TO HOSPITALIZATION AND REHAB PT HAD BEEN LIVING IN A HOUSE WITH HERE WITH A RAMP TO ENTER THROUGH GARAGE AND NO STEPS PT USES INSIDE. SPOUSE INDICATED HE HAS A WC FOR HOME USE. SPOUSE INDICATED SHE AND SON LEONILA ARE GOOD CONTACTS FOR HIM. PT'S PCP DR. NGOC ABARCA. SPOUSE INDICATED THAT PT HAD BEEN ON SERVICE WITH [facility] FOR HIS SUPRAPUBIC CATHETER CHANGING EVERY 21 DAYS. SPOUSE INDICATED THAT PT DOESN'T WALK OR STAND THAT SHE ASSISTS PT WITH SLIDEBOARD TRANSFERS TO AND FROM THE WC. SPOUSE INDICATED THAT SHE ANTICIPATES PT RETURING TO [facility] TO [facility] ONCE MEDICALLY STABLE PRIOR TO RETURNING HOME. SHE SAID [facility] OR [facility] WOULD LIKELY BE HER PREFERANCES. CM FOLLOWING REAGARDING DC PLANNING. . CM FOLLOWING REGARDING DC PLANNING.
--- NOTE | 2021-07-11 19:26 | NUR ---
Pt report given to CARMINA MATA
[2021-07-12 04:49] LABS: HEMATOCRIT 43.6 % (42.0-52.0); MCH 30.5 pg (26.0-34.0); MCHC 33.5 g/dL (28.0-37.0); MCV 91.1 fL (80.0-100.0); RBC 4.78 mil/uL (4.50-6.00); RDW 14.6 % (10.5-14.5); WBC 8.2 thou/uL (4.0-11.0)
[2021-07-12 04:51] LABS: HEMOGLOBIN 14.6 gm/dL (14.0-18.0)
[2021-07-12 05:10] LABS: CALCIUM 7.7 mg/dL (8.5-10.1); MAGNESIUM 2.3 mg/dL (1.8-2.4)
[2021-07-12 05:12] LABS: CREATININE 2.1 mg/dL (0.7-1.3)
[2021-07-12 10:57] VITALS: BP 95/62
[2021-07-12 16:20] VITALS: BP 108/54
--- NOTE | 2021-07-12 21:25 | NUR ---
TALKED WITH TRAVELING INVENTORY ASSOCIATE REGARDING STATUS, VITAL SIGNS
[2021-07-12 22:53] VITALS: BP 115/54
[2021-07-13] VITALS (12 sets, daily range): BP systolic 108–129; BP diastolic 46–67
[2021-07-13 04:35] LABS: BASOPHILS 0.3 % (0.0-2.0); EOSINOPHILS 0.1 % (0.0-3.0); HEMATOCRIT 38.1 % (42.0-52.0); LYMPHOCYTES 14.8 % (24.0-44.0); MCHC 32.7 g/dL (28.0-37.0); MCV 91.8 fL (80.0-100.0); MONOCYTES 6.4 % (1.0-8.0); PLATELET COUNT 167 thou/uL (150-400); POLYS 78.4 % (36.0-66.0); RBC 4.15 mil/uL (4.50-6.00); RDW 14.5 % (10.5-14.5); WBC 6.3 thou/uL (4.0-11.0)
[2021-07-13 04:41] LABS: HEMOGLOBIN 12.5 gm/dL (14.0-18.0)
[2021-07-13 04:50] LABS: ALBUMIN 1.9 g/dL (3.4-5.0); CALCIUM 7.5 mg/dL (8.5-10.1); CREATININE 1.3 mg/dL (0.7-1.3); DIRECT BILIRUBIN 0.2 mg/dL (<0.1-0.2); MAGNESIUM 2.4 mg/dL (1.8-2.4); PHOSPHORUS 2.5 mg/dL (2.5-4.9); POTASSIUM 3.5 mmol/L (3.5-5.1); TOTAL BILIRUBIN 0.5 mg/dL (0.2-1.0); TOTAL PROTEIN 5.3 g/dL (6.4-8.2)
--- NOTE | 2021-07-13 04:50 | HC ---
[facility] [place] [address] [place] [address] CONSULTATION Name: ZBIGNIEW COREA JR Room #: 248-P ADM IN M.R.#: [id number] Admission: 07/11/21 Attend Phys: Oleg Kunz MD Discharge: Date of : 43 Report #: [id number] THIS REPORT FOR: cc: Lew Caballero MD, Christopher B. MD Barry,Juliano Sellers MD ~ DATE OF SERVICE: 07/11/2021 INFECTIOUS DISEASE CONSULTATION ATTENDING PHYSICIAN: Dr. Kunz. REASON FOR EVALUATION: Septic shock and felt to be secondary to complicated urinary tract infection. The patient with longstanding indwelling Jordan catheter. There is a concern about aspiration pneumonitis as well. HISTORY OF PRESENT ILLNESS: Chart reviewed. The patient examined. This is a 75-year-old known to myself, who has been in extended hospitalization just recently and was discharged 48 hours ago. He has underlying multiple sclerosis, previous stroke and he is quite severely debilitated. He does have a history of recurrent urinary tract infections. He presented via a facility, was found to have markedly temperature elevations in excess of 105 degrees with worsening encephalopathy. Initial evaluation showed a pO2 of 58 on 100% nonrebreather, now he is on a BiPAP. White count was elevated at 15.6 with hemoglobin of 18.1. Additionally, he was remarkable for creatinine 3.9 on discharge, and within the last week, his creatinine was 1.2. Chest x-ray showed mild bibasilar atelectasis. Urinalysis described above, 6-15 white cells, 1+ leukocytes, positive nitrite. Lactic acid was elevated at 6.2. Coronavirus testing was negative. Influenza antigen testing was negative as well. At this point, he is minimally responsive. At his baseline, he is generally somnolent, too lethargic. He was empirically started on therapy with Zosyn, given a dose of levofloxacin as well. ALLERGIES: Listed to BACLOFEN. CURRENT MEDICATIONS: Include heparin, famotidine, Zosyn, single dose of Levaquin. 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 SOCIAL HISTORY: Nonsmoker, no ethanol, no illicit drug use. FAMILY HISTORY: Noncontributory. [address] [address] CONSULTATION Name: ZBIGNIEW COREA JR Room #: 248-P [facility] IN [facility]#: [id number] Admission: 07/11/21 Attend Phys: Oleg Kunz MD Discharge: Date of : 43 Report #: [id number] REVIEW OF SYSTEMS: Unobtainable. PHYSICAL EXAMINATION: GENERAL: He is chronically ill appearing. He is unable to arouse. He is in moderate distress. VITAL SIGNS: Temperature 99.4 and reported fever up to 106.5 rectally, pulse 101, respirations 28, blood pressure 95/55. SKIN: Warm, dry. HEENT: BiPAP in place. There is some decreased range of motion about the neck. LUNGS: Scattered bilateral coarse breath sounds. HEART: Tachycardic, appears to be regular. I do not appreciate a murmur. ABDOMEN: No overt peritoneal signs. Suprapubic catheter in place. GENITOURINARY AND RECTAL: Deferred. LABORATORY DATA: CT of the head, unchanged from previous study. Influenza antigen was negative. Coronavirus negative. Electrolytes: Sodium 142, potassium 4.9, chloride 106, bicarbonate 21, anion gap of 15, BUN and creatinine 63 and 3.9, glucose of 266, AST 55, ALT of 70, albumin 3.0, total protein of 8.0. CBC: White count 15.6, H and H 18.1 and 55.2, platelets of 404. ASSESSMENT AND PLAN: Septic shock, likely has a complicated urinary tract infection, this has been his pattern. 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 We will continue broad-spectrum therapy dose with Zosyn. We will add linezolid. Monitor expectantly. He is certainly at risk for clinical deterioration. I think he requires such a higher level of care that he is having repeated admissions with the best approach forward. <ELECTRONICALLY SIGNED> By: Juliano Vieira MD 07/13/21 0450 [id number] Juliano Vieira MD /nt
--- NOTE | 2021-07-13 15:58 | NUR ---
SPOKE TO THE PATIENT'S , DEMETRIUS, FROM [id number] AND SHE WAS UPDATED AND EDUCATED ON THE PATIENT'S CONDITION AND PLAN OF CARE.
--- NOTE | 2021-07-13 18:24 | NUR ---
PT XFR FROM ICU AT 1800. PT IS ALERT TO SELF; SR ON THE MONITOR. VSS. PT APPEARS COMFORTABLE IN BED. NOTED PREVIOUS ADMISSION, PT BLE SOME CONTRACTION AND LEANS TOWARDS LEFT SIDE OF BED. PRAFO BOOTS AND SCDS ON. WILL CONTINUE TO MONITOR SKIN INTEGRITY FOR LENGTH OF STAY. FALL PRECAUTIONS IN PLACE.
--- NOTE | 2021-07-13 22:49 | NUR ---
NURSING NOTE: PT ALERT TO SELF/SPEAKS VERY LITTLE. NODS OR SHAKES HEAD TO YES/NO QUESTIONS. DENIES PAIN. CURRENTLY RESTING WITH EYES CLOSED. ALL VS AND ASSESSMENTS CHARTED. NO DISTRESS NOTED AT THIS TIME. WILL CONTINUE TO MONITOR.
[2021-07-14 03:42] VITALS: BP 117/52
[2021-07-14 04:59] LABS: HEMATOCRIT 39.1 % (42.0-52.0); HEMOGLOBIN 12.9 gm/dL (14.0-18.0); MCH 30.4 pg (26.0-34.0); MCV 91.8 fL (80.0-100.0); RBC 4.26 mil/uL (4.50-6.00); RDW 14.3 % (10.5-14.5); WBC 5.2 thou/uL (4.0-11.0)
[2021-07-14 05:16] LABS: CALCIUM 8.1 mg/dL (8.5-10.1); MAGNESIUM 2.3 mg/dL (1.8-2.4); POTASSIUM 3.6 mmol/L (3.5-5.1)
[2021-07-14 07:40] VITALS: BP 136/67
[2021-07-14 11:55] VITALS: BP 117/51
[2021-07-14 15:50] VITALS: BP 117/61
--- NOTE | 2021-07-14 18:03 | NUR ---
faxed clinical updates to [facility].
[2021-07-14 19:31] VITALS: BP 130/53
--- NOTE | 2021-07-14 20:14 | NUR ---
PT IS AWAKE, ABLE TO STATE NAME; DIFFICULT TO GET ANSWERS TO ORIENTATION QUESTIONS, BUT PT DOES TRACK THOSE WHO ENTER THE ROOM. VSS, AFEBRILE, SR ON THE MONITOR. PT HAS PARESIS BLE. Q2 TURNS. DR OSORIO CONSULTED. DR CONN CONSULTED. POC IS TO CONTINUE ABX THERAPY. CASE MGMT CONSULTED TO DISCUSS POC WITH . FALL PRECAUTIONS IN PLACE. FREQUENT ROUNDING.
--- NOTE | 2021-07-15 03:33 | NUR ---
PATIENT AAO TO PERSON. ABLE TO ANSWER SIMPLE QUESTIONS. LIMITED USE OF L SIDE OF BODY. DENIES PAIN OR NEEDS. VSS. NO DISTRESS NOTED. ALL SAFETY PRECAUTIONS IN PLACE. EJ TO RIGHT SIDE OF NECK POSITIONAL. NO BM NOTED THIS SHIFT. WILL CONTINUE TO MONITOR FOR CHANGES IN STATUS.
[2021-07-15 03:45] VITALS: BP 118/53
[2021-07-15 04:49] LABS: CALCIUM 7.3 mg/dL (8.5-10.1); PHOSPHORUS 2.9 mg/dL (2.5-4.9); POTASSIUM 3.2 mmol/L (3.5-5.1); TOTAL PROTEIN 5.4 g/dL (6.4-8.2)
[2021-07-15 04:56] LABS: ABSOLUTE NEUTROPHILS 4.4 thou/uL (1.4-8.2); BASOPHILS 0.6 % (0.0-2.0); EOSINOPHILS 0.5 % (0.0-3.0); HEMATOCRIT 38.5 % (42.0-52.0); HEMOGLOBIN 12.9 gm/dL (14.0-18.0); LYMPHOCYTES 16.2 % (24.0-44.0); MCH 30.2 pg (26.0-34.0); MCHC 33.4 g/dL (28.0-37.0); MCV 90.2 fL (80.0-100.0); MONOCYTES 6.5 % (1.0-8.0); PLATELET COUNT 156 thou/uL (150-400); POLYS 76.2 % (36.0-66.0); RBC 4.27 mil/uL (4.50-6.00); RDW 14.1 % (10.5-14.5); WBC 5.8 thou/uL (4.0-11.0)
[2021-07-15 07:45] VITALS: BP 117/50
[2021-07-15 11:25] VITALS: BP 135/71
[2021-07-15 15:40] VITALS: BP 121/71
--- NOTE | 2021-07-15 16:29 | NUR ---
ASSESSMENT CHARTED - MEDS PER AUG - PT SEEN BY SPEECH THERAPY THIS AFTERNOON AND STARTED ON ON PURREE DIET WITH THICKENED LIQUIDS. APPEARS TO BE TOLERATING - NO THROAT CLEARING/ COUGHING NOTED WITH PUDDING. MEDS PLACED IN PUDDING. HAS BEEN RESTING IN BED - LARGE INCONT STOOL THIS AM. PT TURNED - HEEL PROTECTORS REMAIN INSITU. PT WITH AREA OF DEEP TISSUE INJURY TO R HEAAL. DRESSING REMOVED FROM COCCYX AREA AND CREAM TO BE APPLIED AND LEFT OPEN TO AIR PER WOUND CARE. K+ GIVEN ORDERED FOR LOW K+ THIS AM. NO CO'S AT THE PRESENT TIME.
[2021-07-16 05:05] VITALS: BP 128/56
[2021-07-16 07:44] VITALS: BP 110/50
[2021-07-16 09:47] LABS: CALCIUM 8.1 mg/dL (8.5-10.1); CREATININE 1.1 mg/dL (0.7-1.3); POTASSIUM 3.8 mmol/L (3.5-5.1)
[2021-07-16 11:31] VITALS: BP 124/56
[2021-07-16 15:00] VITALS: BP 128/59
--- NOTE | 2021-07-16 16:22 | NUR ---
CM FOLLOWING FOR DC PLANNING. PLAN FOR DISCHARGE TO RETURN TO [facility] IN 1-2 DAYS. UPDATES SENT TO [facility] THIS DAY. CM FOLLOWING FOR DC PLANNING.
--- NOTE | 2021-07-16 16:29 | NUR ---
ASSESSMENT as charted - MEDS PER SERGIO HEARD PURREED DIET AND FLUIDS. MEDS GIVEN IN PUDDING. ACCUCHECKS CHARTED - NO CO'S OF PAIN OR NAUSEA. FEET REMAIN IN PRAFO BOOTS. PT TURNED - CARE TO TO BUTTOCKS ORDERED. PICTURES TO THE CHART. FLUIDS CONTINUE ORDERED. APPEARS TO BE RESTING AT THE PRESENT TIME.
[2021-07-16 20:10] VITALS: BP 116/55
--- NOTE | 2021-07-16 23:34 | NUR ---
ASSESSMENTS CHARTED, MEDS CHARTED GIVEN. PATIENT RESTING IN BED DURING SHIFT. PATIENT DENIED PAIN. TOOK PILLS IN PUDDING WITH NO PROBLEMS. TURNED AND BOTTOM TREATED. CONTINUE CARES.
[2021-07-17 01:28] LABS: CALCIUM 7.7 mg/dL (8.5-10.1); CREATININE 1.2 mg/dL (0.7-1.3); POTASSIUM 3.7 mmol/L (3.5-5.1)
[2021-07-17 06:13] VITALS: BP 136/61
[2021-07-17 07:49] VITALS: BP 124/61
--- NOTE | 2021-07-17 10:35 | NUR ---
PT IS AXOX2-3, CALM; VSS, AFEBRILE, SR ON THE MONITOR. PT HAD BM, DARK, BRN/GRN; SUPRAPUBIC SCHULTE. WOUND CARE ROUNDED THIS AM. DR FIGUEROA CONSULTED. PT TO CONTINUE ABX PER ID. PLAN OF D/C DISCUSSED AND CASE MGMT TO CALL . FALL PRECAUTIONS IN PLACE.
[2021-07-17] MEDS ORDERED: LEVOFLOXACIN500 MG PO (11:08)
[2021-07-17] MEDS ORDERED: LINEZOLID600 MG PO (11:08)
--- NOTE | 2021-07-17 11:32 | NUR ---
CM SPOKE TO [facility] THIS DAY. THEY ARE AWARE PT MEDICALLY STABLE TO DC THIS DAY. CLINICAL UPDATES FAXED. ONCE REVIEWED BY [facility] AND RECEIVE DISCHARGE ORDERS THEY WILL ARRANGE TRANSPORTATION. CM FOLLOWING FOR DC PLANNING.
[2021-07-17 11:40] VITALS: BP 124/61
--- NOTE | 2021-07-17 11:55 | NUR ---
CM SPOKE TO PTS REGARDING DISHARGE PLANNING. PTS REPORTS ALTHOUGH PT ACCEPTED TO GO BACK TO [facility] THIS DAY SHE WOULD LIKE TO ALSO SEE IF [facility] WOULD BE ACCEPTING. CM SPOKE TO [facility] WITH [facility] AND SENT REFERRAL. WILL AWAIT ACCEPTANCE/DENIAL AND DC PLAN INDICATED. CM FOLLOWING.
[2021-07-17 15:03] VITALS: BP 122/55
--- NOTE | 2021-07-17 15:50 | NUR ---
CM SPOKE TO [facility] WHO INFORMED CM [facility] NO LONGER ABLE TO ACCEPT PT FOR SNF SERVICES. CLINICAL UPDATES SENT AND INFORMED PT POOR ENDURANCE AND POOR TOLERATION TO THERAPY. CM ALSO SPOKE TO [facility] WHOM INDICATED PT WAS TO COMPLEX WITH DIET, WOUNDS, AND BEDBOUND STATUS. CM REVIEWED SNF FACILITIES AGAIN AND INDICATED CHOICE IS SMALLER PT IS NOT VACCINATED. ALSO DISCUSSED GEOSCIENCE SPECIALIST PLANNING WITH PTS WELL. LTC, PRIVATE CARE GIVERS. PTS INFORMED CM SHE CANNOT TAKE PT HOME UNLESS PT IS AT HIS BASELINE WHEN HE LEFT PRIOR TO FIRST ADMISSION. INFORMED PTS OF PTS DECLINE AND NOT BEING AT BASELINE SHE IS INDICATING. CM WILL CONTINUE TO FOLLOW FOR DC PLANNING AND FOLLOW UP ON REFERRALS FOR DC PLANNING.
[2021-07-17 20:14] VITALS: BP 125/54
--- NOTE | 2021-07-18 00:32 | NUR ---
ASSESSMENTS CHARTED, MEDS CHARTED GIVEN. PATIENT RESTING IN BED DURING SHIFT. PATIENT SMILING. LIQUID BOWEL MOVEMENT. PLAN OF CARE WAS TO DISCHARGE 07/17/21, BUT [facility] REFUSED PATIENT. LOOKING FOR ANOTHER FACILITY.
[2021-07-18 06:17] VITALS: BP 114/58
[2021-07-18 07:30] VITALS: BP 126/53
--- NOTE | 2021-07-18 13:08 | NUR ---
patient inadvertently pulled out IJ. pressure dressing applied. central line tip intact. physician notified.
--- NOTE | 2021-07-18 15:16 | NUR ---
CHART REVIEWED AND DISCUSSED WITH CARE TEAM. CM SPOKE TO PHYSICIAN WHO INDICATED HAD LONG DISCUSSION WITH PTS VIA PHONE REGARDING OFFICE REP CARE GOALS AND ESTATE PLANNING. [facility] WILLING TO ACCEPT PT FOR SNF ONCE PT HAS SOLID DC PLAN IDENTIFIED ONCE MEDICALLY STABLE TO DC FROM SNF. CM SPOKE TO PTS JULIO VIA PHONE AND DISCUSSED PTS PO0R TOLERANCE TO THERAPY AND BEING UNVACCINATED BARRIERS TO SNF. SPENT SOME TIME ANSWERING QUESTIONS AND PROVIDING SUPPORT TO PTS WHO INDICATED HAVING A HARD TIME MAKING THIS DECISION. AT THIS TIME PTS IS NOT INTERESTED IN LTC. 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 EDUCATION PROVIDED TO PTS THERAPY RESULTS TO DATE AND LACK OF PROGRESS. PTS THEN REPORTS IF PT CAN BE SKILLED FIRST, EVEN IF SHORT TERM, SHE WILL CONSIDER LTC BUT HESITANT. SPOKE TO PTS ABOUT HOSPICE AND SERVICES THEY PROVIDE IN THE HOME. SHE SEEMED RECEPTIVE TO THAT. CM ATTEMPT TO CALL PTS SON LEONILA [phone] WITH NO ANSWER. UNABLE TO LEAVE MESSAGE VOICEMAIL IS FULL. PTS INDICATED IT WOULD HARD TO GET AHOLD OF PTS SON. PTS UNDERSTANDS PRISON GOAL FOR PT WILL BE DISCUSSED WITH CM AND CARE TEAM WEDNESDAY MORNING. PT WILL BE HERE THROUGH THE WEEKEND. CM FOLLOWING.
[2021-07-18 16:30] VITALS: BP 136/68
[2021-07-18 20:15] VITALS: BP 117/72; BP 99/51
[2021-07-18 20:59] VITALS: BP 111/58
[2021-07-19 04:45] VITALS: BP 108/55
[2021-07-19 08:14] VITALS: BP 98/48
[2021-07-19 11:28] VITALS: BP 121/64
--- NOTE | 2021-07-19 12:35 | NUR ---
CARE ASSUMED THIS AM, PT IS ALERT TO SELF. NON VERBAL, FOLLOW COMMANDS. ON ROOM AIR, NO SIGNS OF DISTRESS. CATHETER IN PLACE, SECURED AND PATENT. PT FED HIS BREAKFAST AND LUNCH, ATE ABOUT 50%. REPOSITION EVERY [address], DENIES ANY NEEDS, WILL CONTINUE TO MONITOR.
[2021-07-19 15:33] VITALS: BP 111/39
[2021-07-19 20:04] VITALS: BP 121/61
--- NOTE | 2021-07-20 03:29 | NUR ---
Assumed pt care at 1900. Pt is alert, non-verbal. No sign of distress noted in pt. Pt is stable. Assessment completed and documented. Vital signs in place. Scheduledmeds meds administered to pt. No acute event noted in pt. Continue to monitor. No further needs at this time.
[2021-07-20 04:45] VITALS: BP 115/51
[2021-07-20 08:22] VITALS: BP 127/59
[2021-07-20 11:34] VITALS: BP 130/56
[2021-07-20 15:17] VITALS: BP 117/49
[2021-07-20 15:21] VITALS: BP 117/49
[2021-07-20 20:51] VITALS: BP 123/55
[2021-07-21 02:57] LABS: HEMATOCRIT 39.1 % (42.0-52.0); HEMOGLOBIN 13.2 gm/dL (14.0-18.0); MCHC 33.7 g/dL (28.0-37.0); RBC 4.4 mil/uL (4.50-6.00); WBC 6.4 thou/uL (4.0-11.0)
[2021-07-21 03:10] LABS: CALCIUM 8.3 mg/dL (8.5-10.1); CREATININE 1.1 mg/dL (0.7-1.3); POTASSIUM 3.6 mmol/L (3.5-5.1)
[2021-07-21 05:06] VITALS: BP 124/52
--- NOTE | 2021-07-21 07:26 | NUR ---
PATIENT IS ALERT AND ORIENTED X2 THIS SHIFT. PATIENT IS CC/ TELE AND HAS BEEN SINUS RHYTHM THIS SHIFT. PATIENT IS ON ROOM AIR. PATIENT HAS A SUPRA PUBIC CATHETER THAT IS PATENT. PATIENT TAKES HIS MEDICATIONS CRUSHED AND IN APPLE SAUCE FOR THIS RN. PATIENT HAS BEEN IN BED THIS SHIFT. PATIENT HAS HAD ZGUARD APPLIED TO HIS BOTTOM WITH EACH CHANGE THIS SHIFT. PATIENT HAS AN IV IN HER LEFT AC THAT IS CURRENTLY INFUSING WITH D5@50 ML/ HR. PATIENT WILL CONTINUE TO BE MONITORED.
[2021-07-21 07:30] VITALS: BP 134/64
[2021-07-21 10:53] LABS: URINE BILIRUBIN NEGATIVE (Negative); URINE BLOOD NEGATIVE (Negative); URINE CLARITY CLEAR; URINE COLOR YELLOW; URINE GLUCOSE-RANDOM* NEGATIVE (Negative); URINE KETONES NEGATIVE (Negative); URINE LEUKOCYTES-REFLEX NEGATIVE (Negative); URINE NITRITE-REFLEX NEGATIVE (Negative); URINE PROTEIN (DIPSTICK) NEGATIVE (Negative); URINE SPECIFIC GRAVITY <= 1.005 (1.005-1.035); URINE UROBILINOGEN 0.2 E.U./dl (0.2-1.0)
[2021-07-21 12:00] VITALS: BP 100/58
[2021-07-21 15:30] VITALS: BP 115/62
--- NOTE | 2021-07-21 15:30 | NUR ---
CM SPOKE TO PTS THIS AM REGARDIGN PRODUCTION ASSOCIATE GOAL FOR PT. PTS INQUIRED ABOUT PT WOUNDS, DIET, AND MOBILITY. CM INFORMED PTS PT WITH BUTTOCK WOUND AND DRESSING ORDERS. CM EXPLAINED PT DOES TURN SELF SIDE TO SIDE BUT NOT FOR PROLONGED PERIOD OF TIME. PT IMMEDIATELY MOVES BACK ON HIS BACK SIDE. PT IS NOW REQUIRING FEEDING. 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 [facility] CALLED CM THIS DAY AND INFORMED POSSIBLE ACCEPTANCE FOR SNF TOMORROW. SHE INFORMED CM SHOULD THEY ACCEPT PT WILL HAVE TO SELF QUARITINE FOR 2 WEEKS PT IS UNVACCINATED. NURSING DOCUMENTS INDICATED PT IS VACCINATED. PTS CONFIRMS PT IS NOT VACCINATED. CM WILL FOLLOW FOR ACCEPTANCE. [facility] ALSO CALLED CM AND INDICATED THEY WOULD ACCEPT HOWEVER DO NOT HAVE BEDS AVILABLE FOR UNVACC FOR 2 WEEKS. CM SPOKE TO PTS JULIO AND UPDATED. CM UPDATED PHYSICIAN WELL. CM FOLLOWING.
--- NOTE | 2021-07-21 16:43 | NUR ---
[facility] WOULD LIKE TO MEET PT TOMORROW BEFORE ACCEPTING FOR SNF. CM WILL FOLLOW.
--- NOTE | 2021-07-21 17:34 | NUR ---
ASSUMED PT CARE THIS MORNING. PT A&OX1 (SELF) AND HAS MOMENTS OF BEING NON-VERBAL. PT DID NOT AMBULATE AND REQUIRED TWO STAFF MEMBERS TO FREQUENTLY REPOSITION. PT HAS A PRESSURE ULCER ON THE COCCYX. PRESSURE ULCER WAS CLEANED WITH NORMAL SALINE, BARRIER CREAM WAS APPLIED, AND THE AREA WAS LEFT OPEN TO AIR PER PROVIDER ORDER. PT HAD A BM THIS MORNING AND VOIDS WITH A SUPRAPUBIC CATH. CATH IS PATENT. PT WAS REPOSITIONED FREQUENTLY. BOTH ELBOWS ARE PADDED, A PILLOW BETWEEN THE KNEES, AND BOOTS TO PROTECT THE FEET. PT NEEDED TO BE FED AT ALL MEALS AND REMINDED TO CHEW/SWALLOW FOOD.
[2021-07-21 19:46] VITALS: BP 154/68
--- NOTE | 2021-07-22 03:45 | NUR ---
Assumed pt care at 1900. Pt is alert but non-verbal.No sign of distress noted in pt. Pt is stable. No sign of distress noted in pt. Assessment completed and documented. Scheduled meds administered. No acute event during the night. Conitnue to monitor. No further needs at this time.
[2021-07-22 04:10] VITALS: BP 115/63
[2021-07-22 09:57] VITALS: BP 131/56
[2021-07-22 12:07] VITALS: BP 127/68
--- NOTE | 2021-07-22 16:22 | NUR ---
CM SPOKE TO PTS AT LENGTH THIS DAY X3. CM INFORMED PT [facility] DID NOT ACCEPT PT HE IS HE NEEDS TO BE MORE INVOLVED IN HIS CARE AND HIS INABILITY TO SELF ADVOCATE AND PARTICIPATE IN CARES. INFORMED PTS PT IS MEDICALLY STABLE TO DC. AFTER NUMEROUS SNF REFERRALS WE ARE UNABLE TO FIND A FACILITY TO ACCEPT. LEFT WITH CHOICE OF LTC/PRIVATE DUTY/HOSPICE. PT CONTINUALLY INFORMED CM SHE CANNOT AFFORD LTC, PRIVATE DUTY, AND DOES NOT WANT HOSPICE SHE WILL STILL HAVE TO CARE FOR PT AND SHE IS NOT ABLE TO R/T TO HEAVY CARES. CM SPOKE TO PTS REGARDING LTC FEES ESTIMATED IS $[phone]/MONTH FOR SEMI PRIVATE ROOM. FACILTY WILL LOOK AT ASSETS AND DIVIDE BETWEEN HER AND PT. PT REPORTS SHE SPOKE TO HER SON AND THEY CANNOT AFFORD THAT. THEY ARE STILL CONSIDERING OPTIONS AND IF FIND FACILTY WANT A FACILITY ON [place]. PTS REPORTS SHE WOULD PHYSICIAN TO CALL HER NOT HAD ONE CALL IN A FEW DAYS. NOTIFIED. PTS REPORTS SHE DOES NOT WANT PT TO GO TO [facility] LTC [address]. PT IS UNVACC AND ADDED BARRIER TO DC. [facility] DID NOT ACCEPT PT IS UNVACC. PT REQUEST REFERRAL BE SENT TO [facility]. CM WILL FOLLOW UP AND CONTINUE TO FOLLOW FOR DC PLANNING.
[2021-07-22 16:32] VITALS: BP 136/53
--- NOTE | 2021-07-22 18:48 | NUR ---
ASSUMED PT CARE THIS MORNING. PT WAS NONVERBAL THIS SHIFT AND ONLY SHAKES THEIR HEAD YES AND NO. DENIED PAIN THROUGHOUT THE DAY. PT WAS FED ALL MEALS, FREQUENTLY REPOSITIONED, AND CLEANED NEEDED.
[2021-07-22 19:27] VITALS: BP 136/59
--- NOTE | 2021-07-23 03:50 | NUR ---
Assumed pt care at 1900. Pt is alert and nonverbal. Repositioning done. No sign of distress noted in pt. Assessment completed and documented. Scheduled meds administered to pt. No acute event during the night. Pt is stable Pending discharge. Tarycardia on the telemonitor. No further needs at this time.
[2021-07-23 07:35] VITALS: BP 128/71
--- NOTE | 2021-07-23 10:06 | NUR ---
Spoke at length with spouse Alma Rosa Herrera at [phone] and reviewed MD documentation. is open to LTC at private rate for 3 months and now has an elder law ip technology transactions attorney working to work on a division of assets. Discussed with the the difference with Palliative verses Hospice and she now would like a Palliative care consult by the FUR SORTER. Attending has placed this consult order. CM will follow up with palliative care FUR SORTER and then get back with spouse for then transfer to LTC. open to NH facility referrals and CM will send more referrals out in this area of the city. CM notified of above.
[2021-07-23 11:05] VITALS: BP 136/68
--- NOTE | 2021-07-23 14:11 | NUR ---
CASE DISCUSSED WITH CARE TEAM. NEW ORDER PALLIATIVE CONSULT.CM SPOKE WITH PALLIATIVE LIASON WHO INDICATED SPOKE TO PTS . SHE INSTRUCTED PTS AGREEABLE TO PALLIATIVE CONSULT BUT NOT HOSPICE. PTS INDICATED SHE CAN PAY FOR LTC FOR 3 MONTHS AND OBTAINED A ELDER LEGAL DISTRICT RESOURCE OFFICER. GOAL FOR PT TO TRANSFER TO LTC WITH PALLIATIVE/HOSPICE. CM SENT REFERRAL TO [facility], AND [facility]. [facility] UNABLE TO ACCEPT THEY DO NOT TAKE UNVACC PTS. [facility] UNABLE TO ACCEPT NO BEDS AVAILABLE AND FULL WITH [facility] PTS. CM CONTINUING TO FOLLOW FOR DC PLANNING.
[2021-07-23 15:17] VITALS: BP 138/67
[2021-07-23 19:47] VITALS: BP 135/81
[2021-07-24 04:10] VITALS: BP 122/45
--- NOTE | 2021-07-24 05:07 | NUR ---
Pt. has been repositioned , moans when being turned. Incontinent of large soft unformed bm. Z guard applied to buttocks,.Slept well majority of the night.
[2021-07-24 08:00] VITALS: BP 108/49
[2021-07-24 11:30] VITALS: BP 130/72
--- NOTE | 2021-07-24 13:17 | NUR ---
I have reviewed the documentation by MARGARET EATON from 07/24/21 to 07/24/21 and I concur with it. AMY SARAVIA
--- NOTE | 2021-07-24 14:09 | HC ---
[facility] [place] [address] CONSULTATION Name: ZBIGNIEW COREA JR Room #: 206-P ADM IN M.R.#: [id number] Admission: 07/11/21 Attend Phys: Oleg Kunz MD Discharge: Date of : 41 Report #: [id number] THIS REPORT FOR: cc: Lew Caballero MD, Christopher B. MD Althoff,Javad Veliz MD ~ DATE OF SERVICE: 07/15/2021 CHIEF COMPLAINT: Sacral ulceration. HISTORY OF PRESENT ILLNESS: This is a 75-year-old male patient who has been admitted on 07/11/2021. He has a history of multiple sclerosis and lower extremity paraplegia and neurogenic bladder, has a history of subdural hematoma and seizure. He was admitted with fever and was noted to have ongoing sacral ulceration. I have been asked to see him with regard to wound care. The patient makes eye contact, but does not answer questions. The patient's family members in the room with him at this time. PAST MEDICAL HISTORY: Positive for history of recurrent urinary tract infection and sepsis, multiple sclerosis with spastic lower body paraparesis, hypertension, history of subdural hematoma, history of suprapubic catheter. He is wheelchair bound, previous appendectomy, previous back surgery, history of seizure disorder, history of thrombocytopenia, history of cerebrovascular accident with left-sided weakness. SOCIAL HISTORY: Negative for alcohol or tobacco use. FAMILY HISTORY: Noncontributory. REVIEW OF SYSTEMS: Not obtainable due to the patient's current medical condition. ALLERGIES: TO INCLUDE BACLOFEN. MEDICATIONS: Include ascorbic acid, aspirin, cholecalciferol, citalopram, cyanocobalamin, docusate sodium, levetiracetam, metoprolol, nitrofurantoin. PHYSICAL EXAMINATION: VITAL SIGNS: At this time include temperature 36.9, pulse 81, respiration of 17, blood pressure 135/71. GENERAL: This is a chronically ill-appearing male patient who appears to be in minimal distress. HEENT: Head demonstrates postsurgical change. NECK: Supple. LUNGS: Diminished. HEART: Regular, without murmur. [facility] [address] [place] [address] CONSULTATION Name: NAHOMYZBIGNIEW Hemant Room #: 206-P ADM IN [facility].#: [id number] Admission: 07/11/21 Attend Phys: Oleg Kunz MD Discharge: Date of : 41 Report #: [id number] ABDOMEN: Soft and bowel sounds present. Pelvic sacral region demonstrates stage III ulceration to the region, DTI previously present seems to have been resolving. NEUROLOGIC: The patient has left-sided weakness. He is nonverbal. LABORATORY DATA: At this time include sodium 146, potassium 3.2, chloride 111, CO2 of 24, BUN 19, creatinine 1.0, glucose __. Albumin is 2.0 with a white blood cell count 5.8 with a hemoglobin of 12.9. CLINICAL IMPRESSION: 1. Stage III sacral pressure ulceration. 2. Recurrent urinary tract infection with history of neurogenic bladder. 3. Acute renal failure with dehydration. 4. Acute encephalopathy. 5. Elevated troponin. 6. Hypertension. 7. Dysphagia. 8. Multiple sclerosis with lower extremity paraplegia. 9. History of seizure disorder. 10. Moderate protein calorie malnutrition, albumin 2.6. RECOMMENDATIONS: At this point in time, the patient will need low air loss mattress q. 2 hour turning and repositioning, Prevalon boots to both lower extremities. Barrier cream and open to air to the sacral region twice daily and as needed. He will need aggressive nutritional support to maximize wound healing. I have discussed all recommendations with the patient with his son at the bedside. I appreciate being asked to see him in consultation. <ELECTRONICALLY SIGNED> By: Javad Groves MD 07/24/21 [id number] Javad Groves MD /nt
--- NOTE | 2021-07-24 14:50 | NUR ---
CM FOLLOWING UP ON LTC FACILITY CHOICES AND ACCEPTANCE FOR DC PLANNING. CM CALLED [facility]. UNABLE TO SPEAK TO ANYONE AND LEFT A VOICEMAIL FOR RETURN CALL. CM CALLED [facility] AND ALSO LEFT A MESSAGE. [facility] INDICATED THEY ARE UNABLE TO ACCEPT BECAUSE THEY DO NOT TAKE MS PATIENTS. KELLEY SPOKE TO ONUR WITH [facility]. SHE INDICATED SHE DID NOT RECEIVE FAX ALTHOUGH CM HAS PRINTED FAX CONFIRMATION. CM REFAXED AND AWAITING HER CALL TO INDICATED IF CAN ACCEPT OR NOT. KELLEY INFORMED ONUR PT IS UNVACC. ONUR INDICATED THAT IS NOT BASED ON ACCEPTANCE. KELLEY SENT ANOTHER REFERRAL TO [facility] AND WILL F/U WITH [facility]. KELLEY WILL CONTINUE TO FOLLOW FOR DC PLANNING.
[2021-07-24 15:32] VITALS: BP 122/71
[2021-07-24 20:18] VITALS: BP 142/62
--- NOTE | 2021-07-24 21:01 | NUR ---
NURSING NOTE: PT ALERT AND ORIENTED X2, PERSON AND PLACE. MOVES ALL EXTREMITIES AND FOLLOWS COMMANDS. CAN ANSWER YES/NO QUESTIONS. RESTING CURRENTLY WITH EYES OPEN; WATCHING TV . DENIES PAIN AT THIS TIME. ALL VS AND ASSESSMENTS CHARTED. WILL CONTINUE TO MONITOR.
[2021-07-25 04:14] VITALS: BP 165/60
[2021-07-25 07:40] VITALS: BP 123/67
[2021-07-25 11:12] VITALS: BP 112/62
--- NOTE | 2021-07-25 15:00 | NUR ---
CHART REVIEWED AND DISCUSSED WITH CARE TEAM. CM SPOKE TO ONUR WITH [facility] THIS DAY. INFORMED PT IS PRIVATE PAY X 3 MON AND HAS ELDER ATTORNY. ONUR REPORTED CLINICAL TEAM CONTINUE TO LOOK AT THIS TIME. INFORMED CM THEY WOULD STILL HAVE TO GO THROUGH PROCESS OF GETTING FINANCIALS SUCH BANK STATEMENTS. JULIANNA WITH [facility] INDICATED THEY CANNOT ACCEPT PT IS TO HEAVY FOR STAFFING SHORTAGES AT THIS TIME. KELLEY CALLED AND SPOKE TO ARTURO WITH [facility]. SHE INFORMED SHE IS CURRENTLY REVIEWING AND WILL LET CM KNOW ABOUT ACCEPTANCE. SHE WILL NOT HAVE A LTC BED UNTIL WEDNESDAY. CM WILL CONTINUE TO FOLLOW FOR DC PLANNING.
[2021-07-25 16:20] VITALS: BP 130/63
[2021-07-25 20:15] VITALS: BP 127/64
--- NOTE | 2021-07-26 00:52 | NUR ---
NURSING NOTE: PT ALERT AND ORIENTED X 2-3; CANNOT ANSWER DATE QUESTIONS. PT VERY STIFF AND PARTIALLY CONTRACTED IN THE LEGS, BUT IS ABLE TO HELP TURN AND GRAB SIDERAILS WHEN ENCOURAGED. HAS HAD 1 MODERATELY SIZED BM THIS SHIFT. SUPRA PUBIC CATHETER PATENT TO DD. CURRENTLY RESTING WITH EYES CLOSED, RESP EVEN AND NON LABORED. ALL VS AND ASSESSMENTS CHARTED. WILL CONTINUE TO MONITOR.
[2021-07-26 04:45] VITALS: BP 118/62
[2021-07-26 07:40] VITALS: BP 113/61
[2021-07-26 15:05] VITALS: BP 116/58
--- NOTE | 2021-07-26 16:21 | NUR ---
ASSUMED CARE OF PATIENT AT 0700. PATIENT A&OX2, ON RA, SR ON TELE. NO C/O PAIN EXCEPT WHEN MOVED. PATIENT HAS BEEN SLEEPING ON AND OFF TODAY AMD WAS MOVED FROM ORIGINAL ROOM TO ROOM 211 AND CHANGED TO MS STATUS. IV TO LEFT UA PATENT AND STILL INFUSING D5 AT 50. SUPRAPUBIC CATH PATENT AND PROFO BOOTS REMAIN ON. PATIENT ABLE TO FEED SELF AND HAS A MODERATELY GOOD APPETITE. PATIENT ON PALLATIVE CARE PER REPORT. PATIENT PROGRESSING TOWARD POC.
[2021-07-26 19:39] VITALS: BP 116/57
[2021-07-27 03:51] VITALS: BP 114/66
--- NOTE | 2021-07-27 04:24 | NUR ---
NURSING NOTE: SHIFT SUMMARY: PT ALERT TO PERSON, PLACE, AND SOMETIMES SITUATION. MOVES EXTREMITIES AND FOLLOWS COMMANDS. D5 INFUSING AT 50 ML/HR THROUGH LEFT UPPER ARM IV. NO REDNESS OR SWELLING NOTED AT SITE. ALL VS AND ASSESSMENTS CHARTED. CURRENTLY RESTING WITH EYES CLOSED; RESP EVEN AND NON LABORED WITH NO DISTRESS NOTED AT THIS TIME. WILL CONTINUE TO MONITOR.
[2021-07-27 07:25] VITALS: BP 126/63
[2021-07-27 15:50] VITALS: BP 141/66
[2021-07-27 19:39] VITALS: BP 151/68
--- NOTE | 2021-07-28 03:21 | NUR ---
NURSING NOTE: SHIFT SUMMARY: PT ALERT X2 -3, MOVES ALL EXTREMITIES, ANSWERS SIMPLE QUESTIONS APPROPRIATELY, AND FOLLOWS COMMANDS. MORPHINE GIVEN ORDERED FOR C/O PAIN X1 AND IS EFFECTIVE PER PT. CURRENTLY RESTING WITH EYES CLOSED, RESP EVEN AND NON LABORED. ALL VS AND ASSESSMENTS CHARTED , WILL CONTINUE TO MONITOR.
[2021-07-28 04:06] VITALS: BP 145/70
[2021-07-28 07:30] VITALS: BP 129/53
[2021-07-28 12:20] VITALS: BP 109/35
--- NOTE | 2021-07-28 13:00 | NUR ---
CM SPOKE TO [facility]. BRYN INDICATED THEY ARE CLINCALLY ABLE TO ACCEPT PT LTC. SHE INFORMED SHE WOULD CALL PTS JULIO TO REVIEW FINANCE AND COPAY DUE ONCE PT ADMITTED INTO LTC. BRYN INDICATED SHE WOULD NOT HAVE A BED FOR LTC UNTIL TOMORROW. CM CALLED TO SPEAK TO PTS . INDICATED SHE HAD IN FACT SPOKE TO BRYN THIS DAY WELL. INDICATED SHE WOULD TOUR [facility] ([facility]) THIS DAY AND REVIEW THEIR RATINGS. [facility] WAS ONE OF THE PTS FIRST CHOICES IN FACILITIES. CM INFORMED PTS ONCE CM RECEIVES CONFIMATION BED AVAILABLE FOR PT TOMORROW PT WOULD TRANSFER AND TRANSPORTATION WOULD BE ARRANGED. REPORTED WELL HE WONT GO UNLESS I APPROVE OF THE FACILITY. CM INSTRUCTED PTS TO CALL CM ONCE SHE TOURS FACILTIY. CM UPDATED BRYN WELL. MILES WITH [facility] ALSO CALLED REGARDING POSSIBLE DC TO LTC. MILES INSTRUCTED HE NEEDS STAGE 3 WOUND DIMENSIONS AND CARE INSTRUCTIONS. KELLEY FAXED TO [phone]. CM RECEIVED MESSAGE FROM [facility] OVER THE WEEKEND. THEY ARE NOT ABLE TO ACCEPT AND NO REASON WAS INDICATED. CM WILL CONTINUE TO FOLLOW FOR DC PLANNING.
--- NOTE | 2021-07-28 16:12 | NUR ---
care assumed this am, pt alert and oriented to self. on room air, no signs of distress noted. iv fluids running per order. reposition every 2 hours, barrier cream applied to sacrum wound. pt has low appetite, barely wanted to eat any of his food. fall precautions in place. will contionue to monitor.
[2021-07-28 16:25] VITALS: BP 124/62
[2021-07-29 04:30] VITALS: BP 130/78
[2021-07-29 07:30] VITALS: BP 113/59
--- NOTE | 2021-07-29 15:02 | NUR ---
RECEIVED MESSAGE FROM [facility] THEY MAY BE ABLE TO ACCEPT. SPOKE WITH FÉLIX. HE REPORTED HE WOULD CALL PTS TO DISCUSS FINANCIALS. FÉLIX PHONE # IS [phone]. KELLEY ALSO SPOKE WITH ONUR WITH [facility]. SHE INDICATED PT WAS NOT ACCEPTED HE DIDNT APPEAR SKILLABLE AND FREQ REFUSED CARES. KELLEY INFORMED ONUR HER AND I SPOKE THIS AM AT WHICH TIME WE DISCUSSED PT WOULD BE PRIVATE PAY FOR 3 MONTHS FOR LTC AND CURRENTLY WORKING WITH AN ELDERLY PRINT SHOP ASSISTANT. ONUR BROUGHT ARELY ON THE LINE WHO CLARIFIED PLAN OF CARE FOR PT. SHE INDICATED SHE WOULD TAKE CASE BACK TO HER DON TO CLARIFY ACCEPTANCE AND WILL CALL CM BACK THIS DAY. CM CALLED PTS JULIO X 2 THIS DAY AND LEFT A VOICEMAIL AND UNABLE TO REACH AT THIS TIME. KELLEY WILL CONTINUE TO FOLLOW FOR DC PLANNING.
[2021-07-29 15:25] VITALS: BP 129/67
--- NOTE | 2021-07-29 16:56 | NUR ---
CM CALLED AND SPOKE TO ONUR WITH [facility] TO VERIFY IF PT ACCEPTED FOR LTC. ONUR INFORMED ME PT NOT ACCEPTED PT WOULD PRESENT WITH COMPLEX HIGH LEVEL CARES AND COMPROMISE STAFFING ISSUES. CM CALLED PTS TO INFORM [facility] WOULD NOT ACCEPT. REQUEST IF [facility] WOULD ACCEPT PT OR NOT. INFORMED I WOULD FOLLOW UP WITH [facility]. SUGGESTED I CALL HER BACK TOMORROW TO DISCUSS. INFORMED PTS I WOULD CALL FÉLIX WITH [facility] NOW AND CALL HER RIGHT BACK. FÉLIX INFORMED CM PT CLINICALLY ACCEPTED AND HE CALLED AND SPOKE TO JULIO. JULIO INFORMED FÉLIX SHE WOULD TOUR FACILITY THIS DAY AND HE REQUEST SHE BRING A COPY OF HIS INSURANCE CARD HOWEVER SHE DID NOT SHOW UP AND TOUR. KELLEY CALLED PTS BACK. SHE INFORMED SHE TOLD FÉLIX SHE MAY TOUR AND DIDNT HAVE AN APPT TO DO SO. SHE INFORMED CM SHE WOULD TOUR IN AM. KELLEY INFORMED JULIO PT HAS BEEN MEDICALLY STABLE TO DC AND WE HAVE 2 ACCEPTING FACILITIES. I LOOK FORWARD TO SPEAKING WITH HER IN THE AM AND SENDING PT TO HER CHOSEN FACILTIY. CM WOULD ASSIST WITH DC PLANNING AND ANSWER ANY FURTHER QUESTIONS SHE HAD. CM FOLLOWING.
--- NOTE | 2021-07-29 21:00 | NUR ---
PT IS AXOX2, COOPERATIVE. PT KNOWS HIS NAME AND THAT HE IS IN HOSPITAL. PT WAS MORE ALERT FROM PREVIOUS SHIFT. VSS, AFEBRILE. PT IS MEDSURG. CASE MGMT CONSULTED TODAY FOR D/C PLAN. SEVERAL LTACs WILLING TO ACCEPT, AND WILL CONTACT . POC IS TO CONTINUE WOUND CARE, REMAIN AFEBRILE AND ASEPTIC. PT/OT CONSULTED. FALL PREACUTIONS IN PLACE. NO CONCERNS AT THIS TIME.
--- NOTE | 2021-07-30 04:17 | NUR ---
PT ALERT AND ORIENTED X3 WITH PERIODS OF FORGETFULNESS. ALL VS AND ASSESSMENTS CHARTED. DENIES PAIN. CURRENTLY RESTING WITH EYES CLOSED, RESP EVEN AND NON LABORED. NO NEW ORDERS. WILL CONTINUE TO MONITOR.
[2021-07-30 04:45] VITALS: BP 118/62
[2021-07-30 07:30] VITALS: BP 111/65
--- NOTE | 2021-07-30 15:38 | NUR ---
KELLEY SPOKE TO PTS REGARDING CHOICE OF LTC FACILTIY. PT REQUESTED TO SPEAK WITH PHYSICIAN. CM INFORMED PHYSICIAN AND HE SPOKE TO PTS AND ANSWERED HER QUESTIONS. PT INFORMED PT WOULD RECEIVE THERAPY COVERED UNDER PART B OF MEDICARE AT LTC FACILITY. PT REPORTS SHE WANTS PT TO GO TO [facility] ([facility] KELLEY SPOKE TO BRYN AND SHE INFORMED CM THEY WOULD HAVE A BED TODAY. BRYN WAS GOING TO CALL PTS TO MAKE FINAL FINANCIAL ARRANGEMENTS AND CALL CM BACK TO [facility]. BRYN CALLED KELLEY BACK AND INFORMED SHE FORGOT PT WAS UNVACCINATED. THEY DO NOT HAVE A UNVACC BED AT THIS TIME. SHE WAS FOLOWING UP WITH HER DON TO LET CM KNOW WHEN UNVACC BED AVAILABLE. KELLEY CALLED BRYN BACK AT THIS TIME TO INQUIRE ABOUT BED AVAILBILITY. BRYN INFORMED KELLEY THEY HAD STATE IN THE BUILDING AND SHE HAS BEEN UNABLE TO CONNECT WITH HER DON. BRYN INFORMED CM SHE WOULD CALL TODAY WITH AN UPDATE. KELLEY FOLLOWING.
[2021-07-30 16:45] VITALS: BP 113/66
--- NOTE | 2021-07-30 16:58 | NUR ---
CM RECEIVED A CALL FROM BRYN AT THIS TIME. SHE INFORMED CM [facility] DOES NOT HAVE A BED AVAILABLE. SHE INDICATED PTS TOOK TO LONG TO DECIDE IF WANTING TO GO TO [facility] AND THE LAST BED WAS GIVEN AWAY. SHE INFORMED CM IT MAY BE AT LEAST 12 DAYS BEFORE BED AVAILABLE. KELLEY LEFT A MESSAGE FOR FÉLIX WITH [facility] REQUESTING BED AVAILABILITY THEY VERBAL ACCEPTED PT WELL. ONCE RECEIVE CONFIRMATION FROM [facility] CM WILL ARRANGE WITH PTS AND ARRANGE DC TO LTC. CM FOLLOWING.
[2021-07-30 20:15] VITALS: BP 127/52
--- NOTE | 2021-07-31 03:00 | NUR ---
NURSING NOTE: SHIFT SUMMARY: PT ALERT AND ORIENTED X3, MOVES ALL EXTREMITIES AND FOLLOWS COMMANDS. WATCHED TV MOST OF SHIFT. DENIES PAIN THIS SHIFT. ALL VS AND ASSESSMENTS CHARTED. WILL CONTINUE TO MONITOR.
[2021-07-31 04:45] VITALS: BP 132/64
[2021-07-31 10:36] VITALS: BP 106/73
[2021-07-31 16:22] VITALS: BP 128/78
[2021-07-31 20:15] VITALS: BP 147/60
[2021-07-31 23:44] VITALS: BP 136/63
[2021-08-01 00:27] LABS: HEMATOCRIT 39.9 % (42.0-52.0); HEMOGLOBIN 13.5 gm/dL (14.0-18.0); MCH 29.9 pg (26.0-34.0); MCHC 33.7 g/dL (28.0-37.0); MCV 88.7 fL (80.0-100.0); RBC 4.5 mil/uL (4.50-6.00); RDW 14.9 % (10.5-14.5); WBC 4.2 thou/uL (4.0-11.0)
[2021-08-01 00:28] LABS: CALCIUM 8.6 mg/dL (8.5-10.1); CREATININE 1.4 mg/dL (0.7-1.3); POTASSIUM 4.6 mmol/L (3.5-5.1)
[2021-08-01 02:30] VITALS: BP 129/61
--- NOTE | 2021-08-01 03:56 | NUR ---
RECEIEVED PATIENT AT 1900H.ASSESSMENT DONE CHARTED.MEDS GIVEN A SPER MAR.ON ROOM AIR SATURATION WAS ON THE 90'S, PLACED ON NASAL CANNULA AT 2LPM, SATURATION IMPROVED TO 95-97%.PATIENT HAD FEVER AND WAS TACHYCARDIC, HR 120-130'S BUT BLOOD PRESSURE WAS WITHIN NORMAL RANGE, INFORMED CLAIM PROCESSOR.BLOOD CULTURE AND LAB WORKS WERE DONE.RELAYED LABS TO CLAIM PROCESSOR.ONE TIME BOLUS OF NS GIVEN.IBUPROFEN WAS GIVEN FOR FEVER AND TEMPERATURE NORMALIZED AFTER.PAIN MEDS GIVEN NEEDED.TURNING DONE.VITALS MONITORED.ALL NEEDS ATTENDED.TO CONTINOUSLY MONITOR.
[2021-08-01 04:50] VITALS: BP 110/59
[2021-08-01 07:24] VITALS: BP 83/51
[2021-08-01 11:18] VITALS: BP 118/59
[2021-08-01 15:24] VITALS: BP 137/61
--- NOTE | 2021-08-01 15:36 | NUR ---
CM SPOKE TO FÉLIX WITH [facility] ON 07-31. THEY CAN ACCEPT PT SNF FOR 3-4 DAYS THEN MOVE TO LTC. CM CALLED PTS TO INFORM. PTS JULIO PADGETT REFUSED TO GO TO [facility]. SHE REPORTS THEY HAVE HORRIBLE RATINGS AND SHE WILL NOT ALLOW PT TO STEP FOOT IN THERE. CM INFORMED PTS WE HAVE SENT REFERRALS TO EVERY FACILTIY AND ALL HAVE DECLINED. REMINDED HER [facility] ACCEPTED WELL AND WILL NOT HAVE UNVACC BED FOR 2 WEEKS. BEING UNVACC IS BIG BARRIER TO ACCEPTANCE. EXPLAINED PT NO LONGER MEETS CRITERIA TO BE IN THE HOSPITAL. PTS COMMENTED JUST THROW HIM OUT IN THE STREETS. INFORMED PTS PT HAS BEEN READY FOR DC AND WILL KEEP HIM HERE UNTIL HE FINDS PLACEMENT HOWEVER ASKED PTS TO CONSIDER [facility] UNTIL BE AVAILABLE WITH [facility]. SHE CONTINUED TO REFUSE. DIRECTOR OF ALSO CALLED AND SPOKE TO PTS AND INSTRUCTED CM WILL CONTINUE TO SEND REFERRALS. CM FOLLOWING FOR DC PLANNING.
[2021-08-01 19:27] VITALS: BP 143/63
--- NOTE | 2021-08-02 01:49 | NUR ---
ASSUMED PATIENT CARE AT APPROXIMATELY 0000.
[2021-08-02 03:07] VITALS: BP 112/60
[2021-08-02 07:38] VITALS: BP 113/59
[2021-08-02 15:36] VITALS: BP 136/57
--- NOTE | 2021-08-02 18:35 | NUR ---
Assumed care of patient at 0700. Vital signs within normal range, patient resting comfortably in bed. Lung sounds clear over diminished with a productive cough occasionally noted. Heart tones normal, bowel sounds present. Stage 3 pressure injury noted on sacral area. Dressing applied and changed once after soilage due to bowel movement. Total of 2 BMs today. Patient had increased appetite today. Pain medication given orally with dressing change. Son at bedside to visit. No concerns at this time.
[2021-08-02 19:48] VITALS: BP 101/55
[2021-08-03 04:52] LABS: ABSOLUTE NEUTROPHILS 3.3 thou/uL (1.4-8.2); BASOPHILS 0.8 % (0.0-2.0); EOSINOPHILS 0.4 % (0.0-3.0); HEMATOCRIT 40.3 % (42.0-52.0); HEMOGLOBIN 13.1 gm/dL (14.0-18.0); LYMPHOCYTES 29.8 % (24.0-44.0); MCH 29.6 pg (26.0-34.0); MCHC 32.6 g/dL (28.0-37.0); MCV 90.7 fL (80.0-100.0); MONOCYTES 8.6 % (1.0-8.0); PLATELET COUNT 216 thou/uL (150-400); POLYS 60.4 % (36.0-66.0); RBC 4.44 mil/uL (4.50-6.00); RDW 15.5 % (10.5-14.5); WBC 5.4 thou/uL (4.0-11.0)
[2021-08-03 05:01] VITALS: BP 139/54
[2021-08-03 05:05] LABS: CALCIUM 8.4 mg/dL (8.5-10.1); PHOSPHORUS 3.7 mg/dL (2.6-4.7); POTASSIUM 4.1 mmol/L (3.5-5.1)
[2021-08-03 08:30] VITALS: BP 123/57
[2021-08-03 15:33] VITALS: BP 131/55
[2021-08-03 19:38] VITALS: BP 122/58
[2021-08-04 04:18] VITALS: BP 128/86
[2021-08-04 04:54] LABS: URINE BLOOD 2+ (Negative); URINE CLARITY SL CLOUDY; URINE COLOR YELLOW; URINE GLUCOSE-RANDOM* NEGATIVE (Negative); URINE KETONES TRACE (Negative); URINE LEUKOCYTES-REFLEX NEGATIVE (Negative); URINE NITRITE-REFLEX NEGATIVE (Negative); URINE PROTEIN (DIPSTICK) 1+ (Negative); URINE SPECIFIC GRAVITY >= 1.030 (1.005-1.035); URINE UROBILINOGEN 0.2 E.U./dl (0.2-1.0)
--- NOTE | 2021-08-04 04:56 | NUR ---
PT IS ALERT TO SELF, DIFFICULT TO ASSESS MENTAL STATUS PT DOES NOT ALWAYS RESPOND TO QUESTIONS. SUPRAPUBIC CATHETER IN PLACE WITH ADEQUATE URINARY OUTPUT. WOUNDS TO SACRAL/COCCYX/BUTTOCKS/SCROTUM, WOUND CARE COMPLETED PER ORDERS, ON NAREN MATTRESS AND REPOSITIONED AT ROUTINE INTERVALS. WILL OBSERVE FOR CHANGES
[2021-08-04 05:08] LABS: HYALINE CASTS 0-3 Few /LPF (None Seen); ICTOTEST (BILI CONFIRMATORY) Negative (Negative); MUCUS 0-3 Light strn/LPF (None Seen); SQUAMOUS None Seen /LPF (0-3); URIC ACID CRYSTALS 4-10 Moderate /LPF (None Seen); URINE BILIRUBIN NEGATIVE (Negative)
[2021-08-04 05:09] LABS: URINE RBC 3-10 Few /HPF (NONE SEEN); URINE WBC-REFLEX 6-15 Few /HPF (0-5)
[2021-08-04 05:10] LABS: AMORPHOUS URATES Moderate /LPF (None Seen); BACTERIA-REFLEX None Seen /HPF (None Seen)
[2021-08-04 09:06] VITALS: BP 109/60
--- NOTE | 2021-08-04 11:16 | NUR ---
Pt is awake and alert; answers some yes/no questions. VS stable and afebrile. Pt denies pain when asked. Pt drank orange juice and half of ommelete for breakfast. No concerns at this time
--- NOTE | 2021-08-04 16:16 | NUR ---
CHART REVIEWED. CM SPOKE TO [facility] THIS DAY. SHE INFORMED CM WILL NOT HAVE A BED AVAILABLE UNTIL THE EARLIEST NEXT WEEK. CM SPOKE TO DYLON MOHAMUD WITH [facility]. REQUEST PT DISCHARGE THERE PRIOR TO ADMISSION TO [facility]. SHE INFORMED CM SHE WOULD SPEAK TO HER CARE TEAM AND LET CM KNOW. CURRENTLY AWAITING ACCEPTANCE FROM [facility] CARE TEAM. CM WILL FOLLOW UP AND CONTINUE WITH DC PLANNING.
[2021-08-04 16:33] VITALS: BP 98/49
[2021-08-04 19:40] VITALS: BP 100/52
--- NOTE | 2021-08-04 20:07 | NUR ---
Pt remains VS stable and afebrile. and grandsons came to visit. Pt more verbal during shift report. has concerns about pts condition. No current concerns.
--- NOTE | 2021-08-04 20:33 | NUR ---
RECEIVED CARE OF THIS PATIENT AT 1900. PATIENT ALERT AND ORIENTED TO SELF ONLY. ON BEDREST. DENIES PAIN. TRANSFERED TO [facility] AT 2019. REPORT WAS CALLED TO NURSE BOO 4W.
[2021-08-04 20:41] VITALS: BP 109/63
--- NOTE | 2021-08-05 03:14 | NUR ---
Pt transferred from [address] [place] [address] 2020 via bed accompanied by 2 staff. Alert to self only,able to answer simple yes/no questions. Denies pain on assessment. Pt is max assist with ADLs,repositioned as tolorated. Suprapubic cath in place with yellow urine noted. IVF infusing via right hand w/o problems. Resting quietly at this time,will continue to monitor pt.
[2021-08-05 07:12] VITALS: BP 99/53
--- NOTE | 2021-08-05 09:19 | NUR ---
ASSUMED PT CARE THIS AM. PT IS ALERT & ORIENTED X2 TO SELF AND PLACE. PT HAS IV SITE ON R HAND RUNNING D5W @50ML/HR. PT HAS SUPRAPUBIC CATH. PER UROLOGY PA EXCHANGE SUPRAPUBIC CATH. SENT MESSAGE TO CS AND AWAITING FOR SUPRAPUBIC CATH. PT IS TOTAL CARE AND FEEDER. GIVEN MEDICATIONS CRUSHED WITH APPLE SAUCE THIS AM WITHOUT DIFFICULTIES. WILL FOLLOW POC.
[2021-08-05 19:05] VITALS: BP 94/57
[2021-08-05 21:21] VITALS: BP 126/76
--- NOTE | 2021-08-06 05:56 | NUR ---
Assumed pt care at 1900. Drowsy,A/OX1-2.Denied pain on assessement. Febrile and diaphoretic at beginning of shift,icepacks applied and temp down to 97.3 other VSS. Max assist with cares. Wound care to buttocks/sacrum completed. Fall precautions in place,will continue to monitor pt.
[2021-08-06 07:11] VITALS: BP 109/35
--- NOTE | 2021-08-06 09:58 | NUR ---
ASSUMED PT CARE THIS AM. PT IS ALERT & ORIENTED X2 TO SELF AND PLACE. PT HAS IV SITE ON R HAND RUNNING D5W @50ML/HR. PT HAS POOR APPETITE AND GIVEN MEDICATION CRUSHED WITH APPLE SAUCE THIS AM. PT HAS 2L NC O2. PT HAS SUPRAPUBIC CATH AND PRAFO BOOTS. PT IS TOTAL CARE AND FEEDER. WILL FOLLOW POC.
--- NOTE | 2021-08-06 11:24 | NUR ---
CM RE SENT CLINICAL UPDATE TO [facility] THIS AM THEY INDICATED THAT THEY HADN'T RECEIVED INFO SENT YESTERDAY. KELLEY SPOKE WITH ADMISSIONS LIAISON AND SHE INDICATED THAT SHE WAS GOING TO TAKE REFERRAL TO THE CLINICAL TEAM TO REVIEW PT WILL HAVE PRETTY [facility] CARE NEEDS AND FOLLOW BACK UP WITH KELLEY. KELLEY SPOKE WITH [facility] AGAIN THIS DAY. SHE INDICATED THAT THEY HAAD DECLINED PT FOR SKILLED ADMISSION AND ARE NOW REVIEWING TO TAKE PT LTC PP $415 PER DAY FOR 2 WEEKS UNTIL PT CAN GO TO [facility]. THEY ARE REVIEWING. CM TO REACH OUT TO SPOUSE TO CLARIFY THIS AND PROVIDE HER WITH UPDATE.
[2021-08-06 15:20] VITALS: BP 91/48
[2021-08-06 19:15] VITALS: BP 116/59
--- NOTE | 2021-08-07 04:32 | NUR ---
RECEIVED CARE OF THIS PATIENT AT 1900. PATIENT ALERT AND ORIENTED TO SELF NAD PLACE. WILL ANSWER YES/NO QUESTIONS, MOSTLY WITH A SHAKE OF HIS HEAD. WILL TALK A SMALL AMOUNT. REMAINS ON BEDREST. LEGS AND L ARM CONTRACTED. DENIES PAIN. SLEPT MOST OF NIGHT.
[2021-08-07 06:04] VITALS: BP 99/42
[2021-08-07 07:00] VITALS: BP 108/34
--- NOTE | 2021-08-07 09:22 | NUR ---
ASSUMED PT CARE THIS AM. PT IS ALERT TO SELF ONLY BUT ABLE TO ANSWER YES AND NO QUESTIONS. PLACED NEW IV ON RFA RUNNING D5W @50ML/HR. PT IS INCONTINENT OF BOWEL AND HAS SUPRAPUBIC CATH IN PLACE. PT HAS PRAFO BOOTS ON AND LOW AIR LOSS MATTRESS. DID WOUND CARE THIS AM ON SACRAL WITH NS AND BARRIER CREAM. PT IS TOTAL CARE AND FEEDER. PT TOLERATED DIET WELL AND GIVEN MEDS CRUSHED WITH APPLE SAUCE THIS AM. PT IS ON 2L NC. AWAITING FOR PLACEMENT. WILL FOLLOW POC.
--- NOTE | 2021-08-07 13:54 | NUR ---
KELLEY CALLED AND FOLLOWED UP WITH ARTURO AT [facility] THIS DAY. SHE INDICATED THAT SHE THOUGHT THEY HAD GOTTEN REFERRAL ON HIM BEFORE CM INDICATED THAT YES THEY LIKELY HAD. CM REITERATED PT'S CIRCUMSTANCES AND SHE IS GOING TO HAVE CARE TEAM REVIEW AGAIN. CM CALLED AND LEFT WITH ADMISSIONS NIECE AT [facility] ASKING ON UPDATED OF POSSIBLE OPEN BED. KELLEY HEARD BACK FROM [facility] (EVEN THOUGH SPOUSE WAS NOT AGREEABLE TO THIS) [facility] WON'T ACCPET FOR 2 WEEK PP WITH PART B THERAPY STAY UNTIL HE COULD GO TO [facility]. THEY FEEL HIS CARE NEEDS ACCEDE WHAT THEY STAFF WOULD BE ABLE TO HANDLE CURRENTLY. CM FOLLOWING.
[2021-08-07 15:56] VITALS: BP 100/57
[2021-08-07 20:22] VITALS: BP 124/62
--- NOTE | 2021-08-08 04:31 | NUR ---
ASSUMED PT CARE AT 1900. PT IS ALERT & ORIENTED X 1, AND IS ABLE TO ANSWER YES OR NO QUESTIONS. PT DENIES PAIN AT THIS TIME. PT IS ABLE TO TAKE MEDS CRUSHED WITH APPLESAUCE. VSS AFEBRILE. ALL NEEDS ARE MET AT THIS TIME. CONTINUE WITH PLAN OF CARE.
[2021-08-08 08:08] VITALS: BP 90/69
--- NOTE | 2021-08-08 18:38 | NUR ---
PT C/O TONGUE PAIN, TONGUE APPEARS SWOLLEN WITH CREAMY COLORED LESIONS. PROVIDER NOTIFIED NEW ORDER FOR NYSTATIN SWISH AND SPIT. ORAL CARE PROVIDED AFTER MEALS. PT REFUSED TO EAT LUNCH LATER STATED TONGUE PAIN, PT GIVEN COLD FOODS AND ICE TO HELP EASE THE PAIN, REPORTS SOME RELIEF.
[2021-08-08 19:39] VITALS: BP 125/62
--- NOTE | 2021-08-09 07:26 | NUR ---
Assumed pt care at 1900. A/OX2,able to make needs known,febrile at beginning of shift medicated with Tylenol/cold packs with relief noted,other VSS.Denied pain on assessment. Suprapubic cath in place with yellow urine draining,incontinent of bowels.Fall precautions in place.
[2021-08-09 09:30] VITALS: BP 119/64
[2021-08-09 16:23] VITALS: BP 118/55
--- NOTE | 2021-08-09 17:47 | NUR ---
PT TURNED Q2, FOAM PLACED ON HIPS BILAT AND SACRUM, PILLOW CASE SLING TO SROTUM. PT EATING WELL, REPORTS TONGUE PAIN, A&OX2, AFEBRILE THIS SHIFT PT STATES NO WHEN ASKED IF HE IS HOT, SKIN ON FACE APPEARS FLUSHED. PLAN OF CARE MAINTAINED.
[2021-08-09 19:48] VITALS: BP 126/57
[2021-08-10 01:12] LABS: URINE BILIRUBIN NEGATIVE (Negative); URINE BLOOD 2+ (Negative); URINE CLARITY CLEAR; URINE COLOR YELLOW; URINE GLUCOSE-RANDOM* NEGATIVE (Negative); URINE KETONES NEGATIVE (Negative); URINE LEUKOCYTES-REFLEX TRACE (Negative); URINE NITRITE-REFLEX NEGATIVE (Negative); URINE PROTEIN (DIPSTICK) TRACE (Negative)
[2021-08-10 01:21] LABS: BACTERIA-REFLEX 1-9 Few /HPF (None Seen); CASTS None Seen /LPF (None Seen); CRYSTALS None Seen /LPF (None Seen); MUCUS None Seen strn/LPF (None Seen); SQUAMOUS None Seen /LPF (0-3); URINE RBC 1-2 Rare /HPF (NONE SEEN); URINE WBC-REFLEX 6-15 Few /HPF (0-5)
--- NOTE | 2021-08-10 03:45 | NUR ---
Assumed pt care at 1900.A/OX2,temp 102.6 at beginning of shift,face flushed.Shelly Wrapper Sizer notified new orders given for cxr/ua given which still shows infiltrates no new orders given at this time,UA negative.Mecated with Tylenol temp down to 99.0. Pt does have a NPC,Oxygen on @2L/NC. Resting quietly w/o distress at this time,will continue to monitor pt.
[2021-08-10 07:05] VITALS: BP 116/64
[2021-08-10 15:25] VITALS: BP 102/46
--- NOTE | 2021-08-10 16:09 | NUR ---
BROUGHT IN CLOTHES FOR PENDING DISCHARGE TO FACILITY, SHIRT, PANTS, SOCKS AND SHOES.
[2021-08-10 19:05] VITALS: BP 119/53
--- NOTE | 2021-08-10 19:11 | NUR ---
BEDSIDE SHIFT REPORT GIVEN TO FIRE OFFICER NURSE, PT IN STABLE CONDITION, LINES IN PLACE, NEEDS MET
--- NOTE | 2021-08-11 03:54 | NUR ---
RECEIVED CARE OF THIS PATIENT AT 1900. PATIENT ALERT AND ORIENTED X SELF ONLY. WILL LOOK AT YOU WHEN YOU CALL HIS NAME. DOES NOT TALK MUCH, MOSTLY YES OR NO. SHAKES HIS HEAD FOR THE ANSWER TO MOST QUESTIONS. TAKES MEDS CRUSHED WITH APPLESAUCE. IV PATENT IN RFA WITH FLUIDS INFUSING. SUPRAPUBIC CATH PATENT. DENIES PAIN. SLEPT MOST OF NIGHT.
[2021-08-11 07:06] VITALS: BP 138/62
[2021-08-11 11:52] VITALS: BP 104/55
[2021-08-11 15:31] VITALS: BP 103/49
--- NOTE | 2021-08-11 16:55 | NUR ---
KELLEY FOLLOWED UP WITH [facility] AT [facility] AND FAXED CLINICAL UPDATES PER THEIR REQUEST. KELLEY ALSO SENT UPDATES TO [facility]. CM FOLLOWING TO ATTEMPT TO FIND PLACEMENT FOR PT.
--- NOTE | 2021-08-11 18:37 | NUR ---
PT TURN Q2, PRESSURE OFFLOADED HIP AND SACRUM, FACE CONTINUES TO APPEAR FLUSHED AFEBRILE DURING DAYSHIFT, PT POCKETING FOOD, TONGUE CLEANSED WITH MOUTH WASH AND RINSED WITH NYSTATIN. NOT ANSWERING QUESTIONS TODAY.
[2021-08-11 20:05] VITALS: BP 91/38
== END 2021-08-12 | disposition hospice, inpatient (51) | DRG 871 ==
LOC: ER 09:36 → 2N 11:41 → EROBS 11:41 → ICU 07-12 23:12 → 2N 07-13 18:13 → 4W 08-04 20:28
PROVIDERS: Emergency Medicine; Internal Medicine; Nurse Practitioner Family; Pediatrics; Specialist; ADMIT Internal Medicine; ATTEND Internal Medicine
PROC: 5A09357 Assistance with Respiratory Ventilation, Less than 24 Consecutive Hours, Continuous Positive Airway Pressure (ICD-10-PCS; 2021-07-11)
PROC: 02HV33Z Insertion of Infusion Device into Superior Vena Cava, Percutaneous Approach (ICD-10-PCS; principal; 2021-07-15)
DX: A41.9 Sepsis, unspecified organism (principal); L89.323 Pressure ulcer of left buttock, stage 3; R65.21 Severe sepsis with septic shock; G93.41 Metabolic encephalopathy; J69.0 Pneumonitis due to inhalation of food and vomit; J96.01 Acute respiratory failure with hypoxia; N39.0 Urinary tract infection, site not specified; N17.9 Acute kidney failure, unspecified; E87.0 Hyperosmolality and hypernatremia; E44.0 Moderate protein-calorie malnutrition; G82.20 Paraplegia, unspecified; Z20.822 Contact with and (suspected) exposure to COVID-19; Z79.899 Other long term (current) drug therapy; Z88.8 Allergy status to other drugs, medicaments and biological substances; Z66 Do not resuscitate; Z87.440 Personal history of urinary (tract) infections; R74.01 Elevation of levels of liver transaminase levels; E66.9 Obesity, unspecified; Z68.29 Body mass index [BMI] 29.0-29.9, adult; Z90.49 Acquired absence of other specified parts of digestive tract; D69.6 Thrombocytopenia, unspecified; L89.320 Pressure ulcer of left buttock, unstageable; L89.310 Pressure ulcer of right buttock, unstageable; L89.220 Pressure ulcer of left hip, unstageable
CPT/HCPCS: 10040; 10045; 10078; 10081; 10797